=== PATIENT | female | born 1955 | race Caucasian/White ===

== ENCOUNTER 2021-12-20 11:29 | Outpatient (REF) | payer OTHER, SELFPAY ==
[2021-12-20 12:12] LABS: MANUAL DIFF FLAG NO
[2021-12-20 13:01] LABS: Basophils Percent Auto 0.2 % (0-2); Eosinophils Absolute Auto 0.1 X10*3/uL (0.0-0.4); Eosinophils Percent Auto 3.4 % (0-4); Hematocrit 39.8 % (37.0-47.0); Imm Gran Abs Auto 0.01 X10*3/uL (0.00-0.03); Imm Gran Pct Auto 0.2 % (0.0-0.4); Lymphocytes Absolute Auto 1.2 X10*3/uL (1.2-4.9); Lymphocytes Percent Auto 29.9 % (20-40); Mean Corpuscular HGB Conc 32.7 g/dl (31.0-35.0); Mean Corpuscular Hemoglobin 30.7 pg (27.0-33.0); Mean Corpuscular Volume 94.1 fL (80.0-98.0); Mean Platelet Volume 10.5 fL (9.4-12.3); Monocytes Absolute Auto 0.4 X10*3/uL (0.1-1.2); Monocytes Percent Auto 8.8 % (2-11); Neutrophils Absolute Auto 2.4 x10*3/uL (2.0-8.3); Neutrophils Percent Auto 57.5 % (45-73); Platelet Count 219 X10*3/uL (160-400); Red Blood Count 4.23 X10*6/uL (4.20-5.50); Red Cell Distribution Width 12.3 % (11.0-16.0); White Blood Count 4.1 X10*3/uL (4.8-10.8)
[2021-12-20 13:07] LABS: Appearance Urine CLEAR; Color Urine STRAW; Glucose Urine UA NEG (NEG); Leukocyte Esterase Urine NEG (NEG); Nitrite Urine NEG (NEG); PH 5.5 (5.0-8.0); UACC Culture Trigger NO; Urine Blood 3+ (NEG); Urine Ketones NEG (NEG); Urine Protein NEG (NEG-TRACE)
[2021-12-20 13:34] LABS: Anion Gap 12 (12-20); Blood Urea Nitrogen 15 mg/dL (9-16); Calcium 9.9 mg/dL (8.4-10.2); Carbon Dioxide 30 mmol/L (22-29); Chloride 102 mmol/L (96-108); Estimated Glomerular Filt Rate > 60; Glucose Random 112 mg/dL (60-115); Potassium 4.6 mmol/L (3.3-5.1); Sodium 139 mmol/L (135-145)
[2021-12-20 14:14] LABS: Squamous Epithelial Cell Urine TRACE /LPF; WBC Urine 0-2 /HPF (0-4)
== END 2021-12-20 11:30 | disposition home or self-care (01) ==
LOC: HO.LAB 11:29
PROVIDERS: PCP Internal Medicine; Visit Provider Internal Medicine
DX: R10.9 Unspecified abdominal pain (principal)
CPT/HCPCS: 36415; 80048; 81001; 81003; 85025

== ENCOUNTER 2021-12-21 00:01 | Emergency (ER) | payer OTHER, SELFPAY ==
--- NOTE | ~2021-12-21 | CT_ITS ---
EXAMINATION: CT ABDOMEN AND PELVIS WITHOUT CONTRAST CLINICAL INFORMATION: Right-sided flank pain COMPARISON: None TECHNIQUE: Multidetector volumetric imaging was performed from the superior aspect of the liver through the pubic symphysis. Sagittal and coronal reformatted images were obtained on the technologist's workstation. This CT examination was performed using dose optimization techniques as appropriate, variously including the following: *Automated exposure control *Adjustment of mA and/or kV according to patient size (this includes techniques or standardized protocols for targeted exams where dose is matched to indication/reason for exam; i.e. extremities or head) *Use of iterative reconstruction technique DLP: 630 mGy-cm FINDINGS: LUNG BASES: The visualized lung bases are unremarkable. LIVER, GALLBLADDER, AND BILIARY TREE: The liver is enlarged, measuring nearly 23 cm in length. No focal hepatic lesion or biliary ductal dilatation is present. The gallbladder is unremarkable with no evidence of radiopaque gallstones, gallbladder wall thickening, or obvious pericholecystic inflammatory changes. PANCREAS: Unremarkable. SPLEEN: Unremarkable. ADRENAL GLANDS: Unremarkable. KIDNEYS AND URETERS: There is moderate right hydroureteronephrosis with no obstructing ureteral calculus seen. Right-sided perinephric stranding is also present. There is a 7 mm calculus located in the right lower pole. The calculus measures approximately 567 Hounsfield units in density. When measured from the posterior mid axillary skin line, the distance from the skin to the calculus is approximately 13.6 cm. Additional punctate right lower pole calculi are noted. No left-sided hydronephrosis or obstructing calculus. There is a 6 mm calculus located in the mid left kidney. The calculus measures approximately 644 Hounsfield units in density. When measured from the posterior mid axillary skin line, the distance from the skin to the calculus is approximately 10.6 cm. Small cyst noted in the lower left kidney for which no follow-up is recommended. BLADDER: Partially distended. There is a 6 mm calcification dependently in the left aspect of the bladder which may represent a recently passed right ureteral calculus. GASTROINTESTINAL TRACT: No evidence of bowel obstruction. There is minimal colonic diverticulosis. No significant bowel wall thickening or pericolonic inflammation. The appendix is unremarkable. No free fluid or free air is seen. ABDOMINAL WALL: No significant hernia is appreciated. LYMPH NODES: Normal. VASCULAR: Unremarkable. PELVIC VISCERA: Unremarkable. OSSEOUS STRUCTURES: There is facet arthropathy in the lower lumbar spine. Disc space narrowing is noted at L4-L5. L3 vertebral body hemangioma. CT/CT abdomen pelvis wo con IMPRESSION: 1. Moderate right hydroureteronephrosis, which could be secondary to a 6 mm calculus which is now in the bladder. 2. Bilateral renal calculi as noted above. Fleischner guidelines were followed.
[2021-12-21 00:08] VITALS: BP 143/84; PULSE 70; RESP 16; TEMP 36.4; O2SAT 93; BMI 28.3
--- NOTE | 2021-12-21 00:38 | ED.ABDPAIN ---
HPI - Abdominal Pain General Chief Complaint: Abdominal Pain Stated Complaint: R flank pain & vomiting x6/past hr; kidney stone ? Time Seen by Provider: 12/21/21 00:38 Source: patient and family Mode of arrival: ambulatory Limitations: no limitations History of Present Illness HPI narrative: This is a 66-year-old female no significant medical history presenting to the emergency department with severe right-sided flank pain that started around dinner time on Friday which is approximately 4 days ago. Patient reports associated nausea and vomiting with this flank pain. It has been fluctuating in intensity over the past 4 days, today was the worst day, pain was severe and stabbing in nature. This flank pain is intermittent, patient tells me it feels like the pain moves, initially it was upper flank and now she can feel it in her lower flank wrapping around to the front of her abdomen. She also tells me that she noted yesterday that she had urinary frequency / urgency however no dysuria. Today she has vomited about 4-5 times, she vomited after eating and has vomited twice in our emergency department. Patient has no history of abdominal surgeries. No history of kidney stones. She denies gross hematuria, fevers, chills, chest pain, shortness of breath, weakness, dizziness, changes in bowel habits. MD elicited complaint: flank pain Pertinent past history: none Onset (ago): day(s) (4) Pain Consistency: intermittent Location: other (Right sided flank pain. ) Severity: severe Pain scale (0-10): 10 Quality: sharp Radiation: other (right lower abdomen. ) Exacerbating factors: nothing Relieving factors: nothing Associated symptoms: nausea and vomiting Related Data Previous Rx's Medication Instructions Recorded morphine 15 mg immediate release 15 mg PO Q8H PRN #14 tab 12/21/21 tablet ondansetron 4 mg disintegrating 4 mg PO Q8-12H PRN #30 tab 12/21/21 tablet Allergies Allergy/AdvReac Type Severity Reaction Status Date / Time No Known Allergies Allergy Verified 12/21/21 00:07 Review of Systems Review of Systems Constitutional : No Fever, No Chills ENT/Mouth : No sore throat Eyes: No Eye Pain, No Swelling, No Redness Cardiovascular : No Chest Pain, No SOB Respiratory : No Cough, No Sputum, No Wheezing Gastrointestinal : positive Nausea, positive Vomiting, No Diarrhea, positive abdominal pain Genitourinary : No Dysuria, positive urinary frequency, No Hematuria, positive Flank Pain, No hesitancy Musculoskeletal : No joint pain, No Myalgias Skin : No Skin Lesions, No rash Neuro : No Weakness, No Numbness, No Headache Psych : No Anxiety/Panic, No Depression All other systems reviewed and are negative Yes all other systems are reviewed and are negative Physical Exam Vital Signs: Vital Signs: Last Vital Signs Temp 97.6 F 12/21/21 00:08 Pulse 70 12/21/21 00:08 Resp 16 12/21/21 00:08 BP 143/84 H 12/21/21 00:08 Pulse Ox 93 12/21/21 00:08 BMI result Body Mass Index 28.3 VSS Appearance: Alert.? Oriented X3.? No acute distress.? Head: Normocephalic, atraumatic, no step-offs or deformities Eyes: Pupils equal, round and reactive to light.? ENT: Pharynx normal.? Neck: Normal inspection.? Neck supple.? CVS: Normal heart rate and rhythm.? Pulses normal.? Respiratory: No respiratory distress.? Breath sounds normal.? Abdomen: Soft and nontender.? Skin: Skin warm and dry.? Normal skin color.? Normal skin turgor.? Extremities: No lower extremity edema.? No calf ttp. 5/5 strength to bilateral upper and lower extremities Back: No midline tenderness, no C-spine tenderness, full range of motion, + CVA tenderness on right, negative one left. Neuro: Oriented X 3.? No motor deficit.? No sensory deficit. Course Reevaluation(s) Reevaluation #1: An isolated leukopenia is noted, also noted on laboratory studies from yesterday as well. Patient's magnesium is noted to be 1.5, no other acute electrolyte abnormalities. Lipase WNL. Time: 01:50 Reevaluation #2: CT scan shows moderate right hydroureteronephrosis there is a 6 mm stone noted in the bladder. And bilateral renal calculi noted. Patient has been given prednisone and flomax. Time: 02:06 Reevaluation #3: TT- Dr. Maya w/ CT results Discuss this case with Dr. Brown it appears as though patient already passed the stone. Will DC patient home on pain meds, zofran and outpatient follow up with Dr. Maya. Comfortable with plan. Answered patients questions comfortable with DC home. Patient reports improvement with toradol and zofran. Time: 02:13 MDM - Abdominal Pain MDM Narrative Medical decision making narrative: 004 66 yo f no significant pmhx presents with severe R sided flank pain w/ a/c N/V and lower abdominal pain X4 days, intermittent in nature. Fluctuating in intensity. Upon physical examination there is CVA tenderness to the right flank. Regular rate and rhythm. Lungs clear. Abdomen soft nontender nondistended. Neuro nonfocal. Vital signs are stable. Patient appears uncomfortable resting on the stretcher however, in no acute distress. Plan at this time is to obtain labs, urine and CT of the abdomen and pelvis without contrast. I will rule out obstructive uropathy. Patient will be given zofran for nausea, fluids and toradol for pain. Medical Records Attestation: I reviewed the patient's medical records. Lab Data Attestation: I reviewed the patient's lab results. Result diagrams: 12/21/21 00:47 12/21/21 00:47 Labs: Lab Results 12/21/21 12/21/21 12/21/21 Range/Units 00:47 00:47 00:47 WBC 4.7 L (4.8-10.8) X10*3/uL RBC 4.23 (4.20-5.50) X10*6/uL Hgb 13.1 (12.0-16.0) g/dl Hct 39.6 (37.0-47.0) % MCV 93.6 (80.0-98.0) fL MCH 31.0 (27.0-33.0) pg MCHC 33.1 (31.0-35.0) g/dl RDW 12.2 (11.0-16.0) % Plt Count 206 (160-400) X10*3/uL MPV 10.2 (9.4-12.3) fL Immature Gran % (Auto) 0.4 (0.0-0.4) % Neut % (Auto) 73.5 H (45-73) % Lymph % (Auto) 17.2 L (20-40) % [place] % (Auto) 6.6 (2-11) % Eos % (Auto) 1.9 (0-4) % Baso % (Auto) 0.4 (0-2) % Lymph # (Auto) 0.8 L (1.2-4.9) X10*3/uL [place] # (Auto) 0.3 (0.1-1.2) X10*3/uL Eos # (Auto) 0.1 (0.0-0.4) X10*3/uL Baso # (Auto) 0.0 (0.0-0.2) X10*3/uL Abs Immat Gran (auto) 0.02 (0.00-0.03) X10*3/uL Absolute Neuts (auto) 3.5 (2.0-8.3) x10*3/uL Absolute Nucleated RBC 0.000 (0.0-0.012) X10*3/uL Nucleated RBC % (auto) 0.0 (0.0-0.2) /100WBC Sodium 139 (135-145) mmol/L Potassium 3.9 (3.3-5.1) mmol/L Chloride 103 (96-108) mmol/L Carbon Dioxide 22 (22-29) mmol/L Anion Gap 18 (12-20) BUN 17 H (9-16) mg/dL Creatinine 0.96 (0.5-1.4) mg/dL Estim Creat Clear Calc 53.6 Estimated GFR 58 Random Glucose 151 H (60-115) mg/dL Calcium 9.5 (8.4-10.2) mg/dL Magnesium 1.5 L (1.6-2.6) mg/dL Total Bilirubin 0.3 (0.0-1.0) mg/dL AST 31 (5-31) U/L ALT 31 (0-31) U/L Alkaline Phosphatase 54 (39-117) U/L Total Protein 6.8 (6.5-8.0) g/dL Albumin 4.3 (3.5-5.0) g/dL Lipase 27 (8-78) U/L COVID-19 (HANG) Negative (Negative) COVID-19 Clin Com See Note Imaging Data CT scan - abdomen: Attestation: I personally reviewed and interpreted this imaging study as follows: Radiologist's impression: CT/CT abdomen pelvis wo con IMPRESSION: 1.? Moderate right hydroureteronephrosis, which could be secondary to a 6 mm calculus which is now in the bladder. 2.? Bilateral renal calculi as noted above. ? Fleischner guidelines were followed. ECG Data Attestation: I personally reviewed and interpreted this ECG as follows: ECG interpretation date: 12/21/21 ECG interpretation time: 01:49 Prior ECG tracings: available for review Interpretation: ventricular rate of 69, CT normal, QRS normal, QT / QTC normal. EKG shows normal sinus rhythm, no ST elevations or inversions concerning for ischemia. No significant changes when compared to EKG from 09/23/2018. Critical Care Time Critical Care Time Critical Care Time: No Discharge Plan Discharge Clinical Impression: Bilateral nephrolithiasis, Right flank pain, Nausea & vomiting Patient Disposition: Home, Self-Care Instructions: Kidney Stones (ED), Acute Nausea and Vomiting (ED) Additional Instructions: Take your medications as prescribed. If you were prescribed antibiotics today, it is important that you take your medication to their entirety, do not skip any doses, do not finish them early. Follow-up with your primary care provider this week. Call Urology tomorrow to schedule an outpatient appointment. Return to the emergency department with new or worsening symptoms. Such as fevers, chills, nausea, vomiting, abdominal pain, worsening flank pain, changes in urination, changes in bowel habits, chest pain, shortness of breath. In case of emergency call 911 A narcotic, morphine has been sent to your pharmacy take this for severe pain. It can cause constipation so you may take an [id number] stool softener. If pain is mild/ moderate you can alternate ibuprofen every 6 hours, Tylenol every 4 for pain/discomfort I attest that I have reviewed patients [employer], and at the time prescribing the patient a controlled substance is appropriate based off of patients diagnosis and treatment plan. Feel better! Prescriptions: New morphine 15 mg tablet 15 mg PO Q8H PRN (Reason: pain) Qty: 14 0RF Rx Instructions: Patient can partially filled prescription upon request ondansetron 4 mg tablet,disintegrating 4 mg PO Q8-12H PRN (Reason: nausea and vomiting) Qty: 30 0RF Referrals: Marlon Maya MD [Physician] - 1 day Physician,None [Primary Care Provider] - 2 days Stand Alone Forms: Work/School Release [facility] Past Medical History Attestation statement: The following information was validated with the patient. Source: old records reviewed and nursing notes reviewed Social History Social History Advance Directives: No
--- NOTE | 2021-12-21 00:39 | ECG_ITS ---
Test Reason : ABD PAIN Blood Pressure : / mmHG Vent. Rate : 069 BPM Atrial Rate : 069 BPM P-R Int : 164 ms QRS Dur : 088 ms QT Int : 424 ms P-R-T Axes : 035 -26 103 degrees QTc Int : 454 ms Normal sinus rhythm Nonspecific T wave abnormality Abnormal ECG When compared with ECG of 23-SEP-2018 17:02, QT has lengthened Referred By: Joel Rodriguez Electronically Signed By:Arun Wing
[2021-12-21 01:03] LABS: MANUAL DIFF FLAG NO
[2021-12-21] MEDS: ondansetron HCL 4 MG/2 ML VIAL IVPUSH (01:04)
[2021-12-21] MEDS: 0.9 % Sodium Chloride 1,000 ML 999 ML IV (01:04)
[2021-12-21 01:05] LABS: Basophils Percent Auto 0.4 % (0-2); Eosinophils Absolute Auto 0.1 X10*3/uL (0.0-0.4); Eosinophils Percent Auto 1.9 % (0-4); Hematocrit 39.6 % (37.0-47.0); Hemoglobin 13.1 g/dl (12.0-16.0); Imm Gran Abs Auto 0.02 X10*3/uL (0.00-0.03); Imm Gran Pct Auto 0.4 % (0.0-0.4); Lymphocytes Absolute Auto 0.8 X10*3/uL (1.2-4.9); Lymphocytes Percent Auto 17.2 % (20-40); Mean Corpuscular HGB Conc 33.1 g/dl (31.0-35.0); Mean Corpuscular Volume 93.6 fL (80.0-98.0); Mean Platelet Volume 10.2 fL (9.4-12.3); Monocytes Absolute Auto 0.3 X10*3/uL (0.1-1.2); Monocytes Percent Auto 6.6 % (2-11); Neutrophils Absolute Auto 3.5 x10*3/uL (2.0-8.3); Neutrophils Percent Auto 73.5 % (45-73); Platelet Count 206 X10*3/uL (160-400); Red Blood Count 4.23 X10*6/uL (4.20-5.50); Red Cell Distribution Width 12.2 % (11.0-16.0); White Blood Count 4.7 X10*3/uL (4.8-10.8)
[2021-12-21 01:19] LABS: COVID-19 Test Negative (Negative); IDNOW Serial# 9DD0AD1C
[2021-12-21] MEDS: Ketorolac Tromethamine 15 MG/ML VIAL 30 MG IVPUSH (01:34)
[2021-12-21] MEDS: predniSONE 20 MG TABLET PO (01:37)
[2021-12-21] MEDS: Tamsulosin HCL 0.4 MG CAPSULE PO (01:37)
[2021-12-21 01:38] LABS: Alanine Aminotransferase 31 U/L (0-31); Albumin Level 4.3 g/dL (3.5-5.0); Alkaline Phosphatase 54 U/L (39-117); Anion Gap 18 (12-20); Aspartate Amino Transferase 31 U/L (5-31); Bilirubin Total 0.3 mg/dL (0.0-1.0); Blood Urea Nitrogen 17 mg/dL (9-16); Calcium 9.5 mg/dL (8.4-10.2); Carbon Dioxide 22 mmol/L (22-29); Chloride 103 mmol/L (96-108); Creatinine Clr Calc Pharmacy 53.6; Estimated Glomerular Filt Rate 58; Glucose Random 151 mg/dL (60-115); Lipase 27 U/L (8-78); Magnesium 1.5 mg/dL (1.6-2.6); Potassium 3.9 mmol/L (3.3-5.1); Sodium 139 mmol/L (135-145); Total Protein 6.8 g/dL (6.5-8.0)
== END 2021-12-21 02:50 | disposition home or self-care (01) ==
PROVIDERS: Physician Assistant; Emergency Provider Emergency Medicine
DX: N20.0 Calculus of kidney (principal); R10.9 Unspecified abdominal pain; R11.2 Nausea with vomiting, unspecified; Z20.822 Contact with and (suspected) exposure to COVID-19
CPT/HCPCS: 36415; 74176; 80053; 83690; 83735; 85025; 87635; 93005; 96361; 96374; 96375; 99284; J1885; J2405

== ENCOUNTER 2022-01-15 12:26 | Inpatient (IN) | payer OTHER, SELFPAY ==
--- NOTE | ~2022-01-15 | FL_ITS ---
EXAMINATION: XR FL WITH IMAGES CLINICAL INFORMATION: Right renal stone. COMPARISON: CT abdomen 01/15/2022. TECHNIQUE: Fluoroscopy performed by Dr. Marlon Maya. Fluoroscopy Time: 46.5 seconds. DAP: 12.6 mGycm2. Images: 4. FINDINGS: Imaging demonstrates sequential placement of an internally dwelling double-J stent on the right. Only the proximal end in the renal pelvis and proximal ureter is imaged. FL/FL guidance in OR IMPRESSION: Fluoroscopy and spot films provided during right internally dwelling ureteral stent placement. Please see Dr. Maya's full operative note for details.
--- NOTE | ~2022-01-15 | CT_ITS ---
EXAMINATION: CT ABDOMEN AND PELVIS WITHOUT CONTRAST CLINICAL INFORMATION: Right flank pain with history of stones COMPARISON: CT abdomen pelvis 12/21/2021 TECHNIQUE: Multidetector volumetric imaging was performed from the superior aspect of the liver through the pubic symphysis. Sagittal and coronal reformatted images were obtained on the technologist's workstation. This CT examination was performed using dose optimization techniques as appropriate, variously including the following: *Automated exposure control *Adjustment of mA and/or kV according to patient size (this includes techniques or standardized protocols for targeted exams where dose is matched to indication/reason for exam; i.e. extremities or head) *Use of iterative reconstruction technique DLP: 594 mGy-cm FINDINGS: LUNG BASES: The visualized lung bases are unremarkable. LIVER, GALLBLADDER, AND BILIARY TREE: The liver is enlarged measuring 22.5 cm in greatest length but attenuation is normal, greater than the spleen. No focal hepatic lesion or biliary ductal dilatation is present. The gallbladder is unremarkable with no evidence of radiopaque gallstones, gallbladder wall thickening, or obvious pericholecystic inflammatory changes. PANCREAS: Unremarkable. SPLEEN: Unremarkable. ADRENAL GLANDS: Unremarkable. KIDNEYS AND URETERS: Right: Large stone that had been in the lower pole of the right kidney that had measured 7 mm has migrated into the distal third of the of the right ureter now causing marked ureterectasis on hydronephrosis. There is evidence of forniceal rupture with perinephric stranding. Some tiny punctate intrarenal nonobstructing calculi remain in the right kidney. No renal masses are seen. Left: A 6 x 8 mm calculus is present in the midpole of the left kidney without obstruction. No other significant calculi are seen. A benign Bosniak class I exophytic lower pole simple cyst is present. No solid renal masses are seen. The left ureter is nondilated. BLADDER: The previously seen stone that was in the bladder is no longer present. GASTROINTESTINAL TRACT: The small and large bowel are unremarkable. The appendix is unremarkable, but contains a appendicolith. ABDOMINAL WALL: No significant hernia is appreciated. LYMPH NODES: Normal. VASCULAR: Unremarkable. PELVIC VISCERA: Unremarkable. 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 Degenerative changes are present in the spine most marked at L4-L5. A hemangioma is noted in the vertebral body of L3. CT/CT abdomen pelvis wo con IMPRESSION: 1. A 7 mm calculus that had been present in the right lower pole has migrated into the distal one third of the right ureter causing marked hydronephrosis. 2. Redemonstration of 8 mm nonobstructing left renal calculus. 3. Other incidental findings described above including hepatomegaly. Fleischner guidelines were followed.
[2022-01-15 13:10] VITALS: BP 141/71; PULSE 70; RESP 18; TEMP 37.1; O2SAT 98; BMI 28.3
[2022-01-15 14:18] LABS: MANUAL DIFF FLAG NO
[2022-01-15 14:19] LABS: Basophils Percent Auto 0.1 % (0-2); Eosinophils Percent Auto 0.2 % (0-4); Hematocrit 43.4 % (37.0-47.0); Hemoglobin 14.6 g/dl (12.0-16.0); Imm Gran Abs Auto 0.02 X10*3/uL (0.00-0.03); Imm Gran Pct Auto 0.2 % (0.0-0.4); Lymphocytes Absolute Auto 0.7 X10*3/uL (1.2-4.9); Lymphocytes Percent Auto 7.4 % (20-40); Mean Corpuscular HGB Conc 33.6 g/dl (31.0-35.0); Mean Corpuscular Hemoglobin 31.1 pg (27.0-33.0); Mean Corpuscular Volume 92.5 fL (80.0-98.0); Mean Platelet Volume 10.5 fL (9.4-12.3); Monocytes Absolute Auto 0.3 X10*3/uL (0.1-1.2); Monocytes Percent Auto 3.9 % (2-11); Neutrophils Absolute Auto 7.7 x10*3/uL (2.0-8.3); Neutrophils Percent Auto 88.2 % (45-73); Platelet Count 241 X10*3/uL (160-400); Red Blood Count 4.69 X10*6/uL (4.20-5.50); Red Cell Distribution Width 12.2 % (11.0-16.0); White Blood Count 8.8 X10*3/uL (4.8-10.8)
[2022-01-15 14:42] LABS: Anion Gap 16 (12-20); Blood Urea Nitrogen 20 mg/dL (9-16); Calcium 9.9 mg/dL (8.4-10.2); Carbon Dioxide 24 mmol/L (22-29); Chloride 103 mmol/L (96-108); Creatinine Clr Calc Pharmacy 58.4; Estimated Glomerular Filt Rate > 60; Glucose Random 154 mg/dL (60-115); Potassium 4.6 mmol/L (3.3-5.1); Sodium 138 mmol/L (135-145)
--- NOTE | 2022-01-15 17:26 | ED.FEMALEGU ---
HPI - Female Genitourinary General Chief complaint: Urogenital-Female Stated complaint: Kidney stone Time Seen by Provider: 01/15/22 16:37 Source: patient Mode of arrival: ambulatory Limitations: no limitations History of Present Illness HPI Narrative: 66-year-old female presents with right-sided flank and abdominal pain that started last night. States she is unable to eat and drink because of nausea and abdominal pain. She has a history of kidney stones, and states that this feels similar to prior presentation. Does not describe any fevers or chills, diaphoresis, or any other concerning symptoms. MD elicited complaint: flank pain Pertinent past history: other (Kidney stones) Onset (ago): day(s) (2) Location of symptoms: RLQ and flank Severity: moderate Female Urogenital Radiation: Non-Radiating Severity scale (1-10): 6 Quality of pain: stabbing and aching Consistency: intermittent and progressively worsening Vaginal discharge: none Urinary symptoms: Urgency Exacerbating factors: movement Relieving factors: none Associated symptoms: abdominal pain, loss of appetite and nausea Treatment prior to arrival: none Related Data Home Medications Medication Instructions Recorded Confirmed fluoxetine 20 mg capsule 20 mg PO DAILY 01/08/22 01/15/22 omeprazole magnesium 20 mg 20 mg PO DAILY 01/08/22 01/15/22 tablet,delayed release (Prilosec OTC) pravastatin 40 mg tablet 40 mg PO DAILY 01/08/22 01/15/22 solifenacin 10 mg tablet 10 mg PO DAILY 01/08/22 01/15/22 cetirizine 10 mg tablet (Zyrtec) 10 mg PO DAILY 01/15/22 01/15/22 cholecalciferol (vitamin D3) 25 25 mcg PO DAILY 01/15/22 01/15/22 mcg (1,000 unit) tablet Allergies Allergy/AdvReac Type Severity Reaction Status Date / Time No Known Allergies Allergy Verified 01/08/22 12:59 Review of Systems Review of Systems: Constitutional: No Fever, No Chills ENT/Mouth: No sore throat Eyes: No Eye Pain, No Swelling, No Redness Cardiovascular: No Chest Pain, No SOB Respiratory: No Cough, No Sputum, No Wheezing Gastrointestinal: positive Nausea, positive Vomiting, No Diarrhea, positive abdominal pain Genitourinary: No Dysuria, no urinary frequency, no Hematuria, positive Flank Pain, no hesitancy Musculoskeletal: No joint pain, No Myalgias Skin: No Skin Lesions, No rash Neuro: No Weakness, No Numbness, No Headache Psych: No Anxiety/Panic, No Depression Heme/Lymph: No Bruising, No Lymphadenopathy Endocrine: No Polyuria, No Polydipsia Yes all other systems are reviewed and are negative [facility] Past Medical History Attestation statement: The following information was validated with the patient. Source: old records reviewed Medical History Renal calculi Social History Social History Alcohol intake: never Patient Tobacco Use Status: Never used Tobacco Use of substances other than those prescribed or required for medical reasons: No Advance Directives: No Advance Directives Information Provided: Yes Physical Exam Vital Signs: Vital Signs: Last Vital Signs Temp 99.0 F 01/15/22 21:13 Pulse 71 01/15/22 21:13 Resp 12 01/15/22 21:13 BP 122/54 L 01/15/22 21:13 Pulse Ox 93 01/15/22 21:13 BMI result Body Mass Index 28.3 Appearance: Alert. Oriented X3. Moderate distress. Eyes: Pupils equal, round and reactive to light. EOMI. Sclera nonicteric. ENT: Pharynx normal. Dry mucous membranes. Neck: Normal inspection. Neck supple. CVS: Normal heart rate and rhythm. Pulses normal. Respiratory: No respiratory distress. Breath sounds normal. Abdomen: Soft and right lower quadrant tenderness, right-sided CVA tenderness. Skin: Skin warm and dry. Normal skin color. Normal skin turgor. Extremities: No lower extremity edema. Gait well-balanced well coordinated. Neuro: No motor deficit. No sensory deficit. Cranial nerves 2-12 intact. Course Course Course Narrative: 66-year-old female presents for right-sided flank and abdominal pain consistent with prior presentations of kidney stones. Patient is afebrile and appears nontoxic. Does appear uncomfortable, unable to sit still secondary to flank pain. Labs drawn while she was in the emergency department waiting room, BUN elevated at 20, which is consistent with patient's inability to eat or drink because of nausea associated with the abdominal pain. Will resuscitate with 1 L of fluid, give Toradol and Zofran. CT scan of abdomen pelvis is pending. 18:22 urinalysis indicative of UTI. Will give ceftriaxone 1 g IV. Lactic and cultures ordered at this time. WBC 8.8. Afebrile. No indication of sepsis at this time. 19:53 CT scan indicates forniceal rupture with perinephric stranding with 7 mm obstructing stone to the right side, in a 6 x 8 mm calculus in the left midpole of the kidney without obstruction. Discussion with Dr. Maya, plan of care is for NPO and admission to Medicine with plan for procedure in the morning. Lactic acid is 0.9. Patient does not meet sepsis requirements. 20:10 discussion with hospitalist, plan of care is to admit for pyelonephritis, hydronephrosis, ureteral rupture and UTI. Patient uncomfortable at this time, order for Reglan, Benadryl, and morphine. 2 L of IV fluids ordered. Consultations Consultation #1: Francesco Time: 19:53 Consultation #2: Mgaalie Time: 20:10 MDM - Female Genitourinary MDM Narrative Medical decision making narrative: Kidney stone, pyelo, hydronephrosis, appendicitis Differential Diagnosis Differential diagnosis: Likely urinary tract infection Medical Records Attestation: I reviewed the patient's medical records. Lab Data Attestation: I reviewed the patient's lab results. Result diagrams: 01/15/22 14:08 01/15/22 14:08 Labs: Lab Results 01/15/22 01/15/22 01/15/22 Range/Units 14:08 14:08 17:34 WBC 8.8 (4.8-10.8) X10*3/uL RBC 4.69 (4.20-5.50) X10*6/uL Hgb 14.6 (12.0-16.0) g/dl Hct 43.4 (37.0-47.0) % MCV 92.5 (80.0-98.0) fL MCH 31.1 (27.0-33.0) pg MCHC 33.6 (31.0-35.0) g/dl RDW 12.2 (11.0-16.0) % Plt Count 241 (160-400) X10*3/uL MPV 10.5 (9.4-12.3) fL Immature Gran % (Auto) 0.2 (0.0-0.4) % Neut % (Auto) 88.2 H (45-73) % Lymph % (Auto) 7.4 L (20-40) % [place] % (Auto) 3.9 (2-11) % Eos % (Auto) 0.2 (0-4) % Baso % (Auto) 0.1 (0-2) % Lymph # (Auto) 0.7 L (1.2-4.9) X10*3/uL [place] # (Auto) 0.3 (0.1-1.2) X10*3/uL Eos # (Auto) 0.0 (0.0-0.4) X10*3/uL Baso # (Auto) 0.0 (0.0-0.2) X10*3/uL Abs Immat Gran (auto) 0.02 (0.00-0.03) X10*3/uL Absolute Neuts (auto) 7.7 (2.0-8.3) x10*3/uL Absolute Nucleated RBC 0.000 (0.0-0.012) X10*3/uL Nucleated RBC % (auto) 0.0 (0.0-0.2) /100WBC Sodium 138 (135-145) mmol/L Potassium 4.6 (3.3-5.1) mmol/L Chloride 103 (96-108) mmol/L Carbon Dioxide 24 (22-29) mmol/L Anion Gap 16 (12-20) BUN 20 H (9-16) mg/dL Creatinine 0.88 (0.5-1.4) mg/dL Estim Creat Clear Calc 58.4 Estimated GFR > 60 Random Glucose 154 H (60-115) mg/dL Lactic Acid (0.5-2.0) mmol/L Calcium 9.9 (8.4-10.2) mg/dL Total Bilirubin 0.6 (0.0-1.0) mg/dL Direct Bilirubin 0.2 (0.0-0.5) mg/dL AST 31 (5-31) U/L ALT 27 (0-31) U/L Alkaline Phosphatase 57 (39-117) U/L Total Protein 7.3 (6.5-8.0) g/dL Albumin 4.5 (3.5-5.0) g/dL Lipase 17 (8-78) U/L Urine Color BROWN A Urine Appearance HAZY Urine pH 5.5 (5.0-8.0) Ur Specific [place] >= 1.030 H (1.005-1.025) Urine Protein 1+ H (NEG-TRACE) MG/DL Urine Glucose (UA) NEG (NEG) MG/DL Urine Ketones 15 (NEG) MG/DL Urine Blood 3+ H (NEG) Urine Nitrite NEG (NEG) Ur Leukocyte Esterase 1+ H (NEG) Urine RBC 76-150 H (0) /HPF Urine WBC 5-9 H (0-4) /HPF Ur Squamous Epith Cells 1+ /LPF Other Crystals 4+ /LPF Urine Bacteria TRACE /LPF 01/15/22 Range/Units 18:55 WBC (4.8-10.8) X10*3/uL RBC (4.20-5.50) X10*6/uL Hgb (12.0-16.0) g/dl Hct (37.0-47.0) % MCV (80.0-98.0) fL MCH (27.0-33.0) pg MCHC (31.0-35.0) g/dl RDW (11.0-16.0) % Plt Count (160-400) X10*3/uL MPV (9.4-12.3) fL Immature Gran % (Auto) (0.0-0.4) % Neut % (Auto) (45-73) % Lymph % (Auto) (20-40) % [place] % (Auto) (2-11) % Eos % (Auto) (0-4) % Baso % (Auto) (0-2) % Lymph # (Auto) (1.2-4.9) X10*3/uL [place] # (Auto) (0.1-1.2) X10*3/uL Eos # (Auto) (0.0-0.4) X10*3/uL Baso # (Auto) (0.0-0.2) X10*3/uL Abs Immat Gran (auto) (0.00-0.03) X10*3/uL Absolute Neuts (auto) (2.0-8.3) x10*3/uL Absolute Nucleated RBC (0.0-0.012) X10*3/uL Nucleated RBC % (auto) (0.0-0.2) /100WBC Sodium (135-145) mmol/L Potassium (3.3-5.1) mmol/L Chloride (96-108) mmol/L Carbon Dioxide (22-29) mmol/L Anion Gap (12-20) BUN (9-16) mg/dL Creatinine (0.5-1.4) mg/dL Estim Creat Clear Calc Estimated GFR Random Glucose (60-115) mg/dL Lactic Acid 0.9 (0.5-2.0) mmol/L Calcium (8.4-10.2) mg/dL Total Bilirubin (0.0-1.0) mg/dL Direct Bilirubin (0.0-0.5) mg/dL AST (5-31) U/L ALT (0-31) U/L Alkaline Phosphatase (39-117) U/L Total Protein (6.5-8.0) g/dL Albumin (3.5-5.0) g/dL Lipase (8-78) U/L Urine Color Urine Appearance Urine pH (5.0-8.0) Ur Specific [place] (1.005-1.025) Urine Protein (NEG-TRACE) MG/DL Urine Glucose (UA) (NEG) MG/DL Urine Ketones (NEG) MG/DL Urine Blood (NEG) Urine Nitrite (NEG) Ur Leukocyte Esterase (NEG) Urine RBC (0) /HPF Urine WBC (0-4) /HPF Ur Squamous Epith Cells /LPF Other Crystals /LPF Urine Bacteria /LPF Imaging Data CT scan - abdomen: Attestation: I personally reviewed and interpreted this imaging study as follows: Radiologist's impression: FINDINGS: LUNG BASES: The visualized lung bases are unremarkable.? LIVER, GALLBLADDER, AND BILIARY TREE: The liver is enlarged measuring 22.5 cm in greatest length but attenuation is normal, greater than the spleen. No focal hepatic lesion or biliary ductal dilatation is present. The gallbladder is unremarkable with no evidence of radiopaque gallstones, gallbladder wall thickening, or obvious pericholecystic inflammatory changes.? PANCREAS: Unremarkable.? SPLEEN: Unremarkable.? ADRENAL GLANDS: Unremarkable.? KIDNEYS AND URETERS: Right: Large stone that had been in the lower pole of the right kidney that had measured 7 mm has migrated into the distal third of the of the right ureter now causing marked ureterectasis on hydronephrosis. There is evidence of forniceal rupture with perinephric stranding. Some tiny punctate intrarenal nonobstructing calculi remain in the right kidney. No renal masses are seen. Left: A 6 x 8 mm calculus is present in the midpole of the left kidney without obstruction. No other significant calculi are seen. A benign Bosniak class I exophytic lower pole simple cyst is present. No solid renal masses are seen. The left ureter is nondilated. BLADDER: The previously seen stone that was in the bladder is no longer present.? GASTROINTESTINAL TRACT: The small and large bowel are unremarkable. The appendix is unremarkable, but contains a appendicolith.? ABDOMINAL WALL: No significant hernia is appreciated.? LYMPH NODES: Normal. VASCULAR: Unremarkable. PELVIC VISCERA: Unremarkable.? 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 Degenerative changes are present in the spine most marked at L4-L5. A hemangioma is noted in the vertebral body of L3. CT/CT abdomen pelvis wo con IMPRESSION: 1.? A 7 mm calculus that had been present in the right lower pole has migrated into the distal one third of the right ureter causing marked hydronephrosis. 2.? Redemonstration of 8 mm nonobstructing left renal calculus. 3.? Other incidental findings described above including hepatomegaly.? ? Fleischner guidelines were followed. Critical Care Time Critical Care Time Critical Care Time: Yes Total Critical Care Time: 45 Attestation: I have personally provided critical care time exclusive of time spent on separately billable procedures. Time includes review of laboratory data, radiology results, discussion with consultants, and monitoring for potential decompensation. Interventions were performed as documented. Discharge Plan Discharge Clinical Impression: Hydronephrosis concurrent with and due to calculi of kidney and ureter, Acute pyelonephritis, Rupture of ureter Patient Disposition: Admitted As Inpatient
[2022-01-15 17:35] VITALS: BP 147/70; PULSE 72; RESP 15; TEMP 37.8; O2SAT 93
[2022-01-15 17:50] LABS: Appearance Urine HAZY; Color Urine BROWN; Glucose Urine UA NEG (NEG); Leukocyte Esterase Urine 1+ (NEG); Nitrite Urine NEG (NEG); PH 5.5 (5.0-8.0); Specific Gravity - Urine >= 1.030 (1.005-1.025); UACC Culture Trigger YES; Urine Blood 3+ (NEG); Urine Ketones 15 MG/DL (NEG); Urine Protein 1+ MG/DL (NEG-TRACE)
[2022-01-15 18:01] LABS: Other Crystals Urine 4+ /LPF
[2022-01-15 18:02] LABS: Bacteria Urine TRACE /LPF; Squamous Epithelial Cell Urine 1+ /LPF
[2022-01-15] MEDS: 0.9 % Sodium Chloride 1,000 ML 999 ML IVCONT ×2 (18:08→21:34)
[2022-01-15] MEDS: Ketorolac Tromethamine 30 MG/ML VIAL IVPUSH (18:10)
[2022-01-15] MEDS: ondansetron HCL 4 MG/2 ML VIAL IVPUSH (18:10)
[2022-01-15 18:56] VITALS: BP 120/52; PULSE 73; RESP 16; TEMP 37.6; O2SAT 94
[2022-01-15 19:03] LABS: Alanine Aminotransferase 27 U/L (0-31); Albumin Level 4.5 g/dL (3.5-5.0); Alkaline Phosphatase 57 U/L (39-117); Aspartate Amino Transferase 31 U/L (5-31); Bilirubin Direct 0.2 mg/dL (0.0-0.5); Bilirubin Total 0.6 mg/dL (0.0-1.0); Lipase 17 U/L (8-78); Total Protein 7.3 g/dL (6.5-8.0)
[2022-01-15 19:10] LABS: Lactic Acid 0.9 mmol/L (0.5-2.0)
[2022-01-15] MEDS: cefTRIAXone sodium 1 GM in 0.9 % Sodium Chloride 50 ML IV (19:49)
[2022-01-15 21:13] VITALS: BP 122/54; PULSE 71; RESP 12; TEMP 37.2; O2SAT 93
--- NOTE | 2022-01-15 21:44 | P.HPHOSP_ITS ---
History of Present Illness Date of Service: 01/15/22 Chief Complaint: flank pain this is a 66-year-old female with past medical history of renal calculi who presents to the hospital with complaints of right flank abdominal pain. Symptoms started the day prior to presentation, pain is severe, radiating to the groin and lower abdomen, patient denies any urinary symptoms including no dysuria, urgency or frequency. Patient reports history of kidney stones with most recent a couple of weeks ago, she follows with Urology. Urology give her some pain medication but patient reports that she has so much nausea and vomiting that she could not keep anything down. She took Aleve with some improvement of her pain but has now remain constant with no relief.he has no chest pain, no shortness of breath, no fever but has been having chills overnight. She denies any headache, no change in vision, no lower extremity edema. On arrival to the ED patient is hemodynamically stable has significant abnormal vitals labs are significant for WBC count of 8.8, labs otherwise unremarkable, UA is positive for leukocyte Estrace, WBC. Abdomen pelvic CT shows a 7 mm calculus that had been present in the right lower pole which has migrated into the distal 1/3 of the right ureter causing marked hydro nephrosis. 8 mm nonobstructing left renal calculus. Urology is consulted and patient will undergo intervention in a.m. Review of Systems Review of Systems: Yes all other systems are reviewed and are negative [facility] Medical History (Updated 01/16/22 @ 06:45 by Brittany Mejias MD) GERD (gastroesophageal reflux disease) Renal calculi Family History (Updated 01/16/22 @ 06:43 by Brittany Mejias MD) Other No family history of coronary artery disease Surgical History (Updated 01/16/22 @ 06:43 by Brittany Mejias MD) No pertinent past surgical history Social History Alcohol intake: never Patient Tobacco Use Status: Never used Tobacco Use of substances other than those prescribed or required for medical reasons: No Advance Directives: No Advance Directives Information Provided: Yes Meds Allergies Allergy/AdvReac Type Severity Reaction Status Date / Time No Known Allergies Allergy Verified 01/08/22 12:59 Home Medications Medication Instructions Recorded Confirmed Last Taken Type fluoxetine 20 mg capsule 20 mg PO DAILY 01/08/22 01/15/22 Unknown History omeprazole magnesium 20 mg 20 mg PO DAILY 01/08/22 01/15/22 Unknown History tablet,delayed release (Prilosec OTC) pravastatin 40 mg tablet 40 mg PO DAILY 01/08/22 01/15/22 Unknown History solifenacin 10 mg tablet 10 mg PO DAILY 01/08/22 01/15/22 Unknown History cetirizine 10 mg tablet (Zyrtec) 10 mg PO DAILY 01/15/22 01/15/22 Unknown History cholecalciferol (vitamin D3) 25 25 mcg PO DAILY 01/15/22 01/15/22 Unknown History mcg (1,000 unit) tablet Physical Exam Vital Signs and Narrative: Vital Signs: Last Vital Signs Temp 99.0 F 01/15/22 21:13 Pulse 71 01/15/22 21:13 Resp 12 01/15/22 21:13 BP 122/54 L 01/15/22 21:13 Pulse Ox 93 01/15/22 21:13 BMI result Body Mass Index 28.3 Const: General: cooperative and no acute distress Orientation/consciousness: patient oriented x3 Eyes: General: appearance normal, both eyes and all related structures Pupils: Equal, round and reactive pupils present Resp: Effort & Inspection: normal respiratory effort Auscultation: clear to auscultation bilaterally Cardio: Rate: regular rate Rhythm: regular rhythm GI: Palpation (GI): Soft to palpation Auscultation: normal bowel sounds : Other: suprapubic tenderness, CVAtenderness on the right Skin: General skin exam: no rashes or lesions noted Neuro: General: patient oriented x3 Cranial nerves: Yes Equal, round and reactive pupils present Cognition (Neuro): normal cognition Extrem: General: Yes normal to inspection and Yes no pedal edema Results Labs CBC and Chem 7: 01/16/22 04:32 01/16/22 04:32 Labs: Laboratory Results - last 24 hr 01/15/22 01/15/22 01/15/22 14:08 14:08 17:34 MCV 92.5 MCH 31.1 MCHC 33.6 RDW 12.2 Plt Count 241 MPV 10.5 Immature Gran % (Auto) 0.2 Neut % (Auto) 88.2 H Lymph % (Auto) 7.4 L [place] % (Auto) 3.9 Eos % (Auto) 0.2 Baso % (Auto) 0.1 Lymph # (Auto) 0.7 L [place] # (Auto) 0.3 Eos # (Auto) 0.0 Baso # (Auto) 0.0 Abs Immat Gran (auto) 0.02 Absolute Neuts (auto) 7.7 Absolute Nucleated RBC 0.000 Nucleated RBC % (auto) 0.0 Anion Gap 16 Estim Creat Clear Calc 58.4 Estimated GFR > 60 Random Glucose 154 H Lactic Acid Calcium 9.9 Total Bilirubin 0.6 Direct Bilirubin 0.2 AST 31 ALT 27 Alkaline Phosphatase 57 Total Protein 7.3 Albumin 4.5 Lipase 17 Urine Color BROWN A Urine Appearance HAZY Urine pH 5.5 Ur Specific [place] >= 1.030 H Urine Protein 1+ H Urine Glucose (UA) NEG Urine Ketones 15 Urine Blood 3+ H Urine Nitrite NEG Ur Leukocyte Esterase 1+ H Urine RBC 76-150 H Urine WBC 5-9 H Ur Squamous Epith Cells 1+ Other Crystals 4+ Urine Bacteria TRACE 01/15/22 18:55 MCV MCH MCHC RDW Plt Count MPV Immature Gran % (Auto) Neut % (Auto) Lymph % (Auto) [place] % (Auto) Eos % (Auto) Baso % (Auto) Lymph # (Auto) [place] # (Auto) Eos # (Auto) Baso # (Auto) Abs Immat Gran (auto) Absolute Neuts (auto) Absolute Nucleated RBC Nucleated RBC % (auto) Anion Gap Estim Creat Clear Calc Estimated GFR Random Glucose Lactic Acid 0.9 Calcium Total Bilirubin Direct Bilirubin AST ALT Alkaline Phosphatase Total Protein Albumin Lipase Urine Color Urine Appearance Urine pH Ur Specific [place] Urine Protein Urine Glucose (UA) Urine Ketones Urine Blood Urine Nitrite Ur Leukocyte Esterase Urine RBC Urine WBC Ur Squamous Epith Cells Other Crystals Urine Bacteria Imaging Radiologist's Impressions: Impressions Abdomen/Pelvis CT 01/15/22 17:00 IMPRESSION: 1. A 7 mm calculus that had been present in the right lower pole has migrated into the distal one third of the right ureter causing marked hydronephrosis. 2. Redemonstration of 8 mm nonobstructing left renal calculus. 3. Other incidental findings described above including hepatomegaly. Fleischner guidelines were followed. Assessment and Plan (1) Hydronephrosis concurrent with and due to calculi of kidney and ureter: Status: Acute (2) Urinary tract obstruction by kidney stone: Status: Acute (3) UTI (urinary tract infection): Status: Acute Plan 66-year-old female with past medical history of renal calculi, GERD who presents to the hospital with complaints of right flank pain found to have obstructing renal calculi # obstructing renal calculi with hydronephrosis - will treat with IV fluids, pain medications, - urology consulted with plan for surgical intervention in a.m - NPO after midnight # UTI - will treat with IV antibiotics - follow cultures - management of obstructing stone # history of GERD - continue PPI # depression - continue Prozac DVT prophylaxis: SCDs Quality Stroke Does the patient have a stroke diagnosis?: No VTE Prior VTE?: No VTE Risk Level:: Medical - moderate - high VTE Device Contraindication: N/A - Device Ordered VTE Drug Contraindication: Treatment Not Indicated
--- NOTE | 2022-01-15 23:02 | PC.NURSE ---
PT SLEEPING IN NAD. RESPIRATIONS EASY, N/L. SKIN W/D. WILL CONTINUE TO MONITOR PT.
[2022-01-16] VITALS (16 sets, daily range): BP systolic 108–140; BP diastolic 48–66; PULSE 64–79; RESP 15–20; TEMP 36–37.2; O2SAT 91–98
[2022-01-16] MEDS: Morphine Sulfate 4 MG/ML CARTRIDGE IVPUSH ×3 (00:39→15:19)
[2022-01-16] MEDS: Lactated Ringers 1,000 ML 100 ML IVCONT ×3 (00:40→15:53)
[2022-01-16 04:54] LABS: Basophils Percent Auto 0.3 % (0-2); Eosinophils Absolute Auto 0.1 X10*3/uL (0.0-0.4); Eosinophils Percent Auto 1.6 % (0-4); Hematocrit 35.8 % (37.0-47.0); Hemoglobin 11.4 g/dl (12.0-16.0); Imm Gran Abs Auto 0.02 X10*3/uL (0.00-0.03); Imm Gran Pct Auto 0.3 % (0.0-0.4); Lymphocytes Absolute Auto 0.9 X10*3/uL (1.2-4.9); Lymphocytes Percent Auto 15.7 % (20-40); Mean Corpuscular HGB Conc 31.8 g/dl (31.0-35.0); Mean Corpuscular Hemoglobin 30.3 pg (27.0-33.0); Mean Corpuscular Volume 95.2 fL (80.0-98.0); Mean Platelet Volume 10.6 fL (9.4-12.3); Monocytes Absolute Auto 0.5 X10*3/uL (0.1-1.2); Monocytes Percent Auto 9.1 % (2-11); Neutrophils Absolute Auto 4.2 x10*3/uL (2.0-8.3); Platelet Count 181 X10*3/uL (160-400); Red Blood Count 3.76 X10*6/uL (4.20-5.50); Red Cell Distribution Width 12.4 % (11.0-16.0); White Blood Count 5.7 X10*3/uL (4.8-10.8)
[2022-01-16 04:55] LABS: MANUAL DIFF FLAG NO
[2022-01-16 05:25] LABS: Anion Gap 11 (12-20); Blood Urea Nitrogen 19 mg/dL (9-16); Calcium 8.4 mg/dL (8.4-10.2); Carbon Dioxide 24 mmol/L (22-29); Chloride 109 mmol/L (96-108); Creatinine Clr Calc Pharmacy 41.7; Estimated Glomerular Filt Rate 43; Glucose Random 120 mg/dL (60-115); Potassium 4.1 mmol/L (3.3-5.1); Sodium 140 mmol/L (135-145)
--- NOTE | 2022-01-16 08:39 | MHC.CM.PN ---
Patient is still in ED over and not reachable by phone;CM spoke with /DR. Luciano Martinez/also listed as PCP. Patient lives in a house with Dr. 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 Home/no services is the goal for dc and CM has initiated and will follow for dc planning.Patient has received Moderna vax X3.
[2022-01-16 09:31] LABS: COVID-19 Test Negative (Negative)
[2022-01-16] MEDS: Cholecalciferol (Vitamin D3) 25 MCG TABLET PO (09:32)
[2022-01-16] MEDS: 0.9 % Sodium Chloride Flush 3 ML SYRINGE IVFLUSH (09:32)
[2022-01-16] MEDS: Pravastatin Sodium 40 MG TABLET PO (09:32)
[2022-01-16] MEDS: Loratadine 10 MG TABLET PO (09:32)
[2022-01-16] MEDS: FLUoxetine HCl 20 MG CAPSULE PO (09:32)
[2022-01-16] MEDS: Omeprazole 20 MG CAPSULE.DR PO (09:32)
--- NOTE | 2022-01-16 10:07 | P.PNIM_ITS ---
Subjective Subjective Date of Service: 01/16/22 Interval History: cc: flank pain interval history: feeling better Cardiovascular Cardiovascular: Reports no additional cardiovascular complaints Respiratory Respiratory: Reports no additional respiratory complaints Physical Exam Vital Signs: Vital Signs: Last Vital Signs Temp 98.8 F 01/16/22 09:42 Pulse 67 01/16/22 09:42 Resp 18 01/16/22 09:42 BP 129/60 01/16/22 09:42 Pulse Ox 93 01/16/22 09:42 BMI result Body Mass Index 28.3 General: AO X 3, no acute distress Resp: CTA bilateral, no accessory muscles used CVS: S1,S2,RRR GI: soft, non tender, non distended Neuro: motor grossly intact, alert Psych: appropriate affect, appropriate insight Objective Data Active Medications Acetaminophen (Acetaminophen Supp 650 Mg Supp.Rect) 650 mg [place] Q6H PRN PRN Reason: Pain, Mild (Pain Scale 1-3) Docusate Sodium (Docusate Sodium 100 Mg Capsule) 100 mg PO DAILY PRN PRN Reason: Constipation Fluoxetine HCl (Fluoxetine Hcl 20 Mg Capsule) 20 mg PO DAILY [facility] Last Admin: 01/16/22 09:32 Dose: 20 mg Documented by: CALEB Ceftriaxone Sodium 1 gm/ (Sodium Chloride) 50 mls @ 100 mls/hr IV Q24H [facility] Lactated Ringer's (Lr) 1,000 mls @ 100 mls/hr IVCONT .Q10H [facility] Last Admin: 01/16/22 06:14 Dose: 100 mls/hr Documented by: GOLDEN Loratadine (Loratadine 10 Mg Tablet) 10 mg PO DAILY [facility] Last Admin: 01/16/22 09:32 Dose: 10 mg Documented by: CALEB Morphine Sulfate (Morphine Sulfate 4 Mg/Ml Cartridge) 4 mg IVPUSH Q4H PRN; Protocol PRN Reason: Pain, Severe (Pain Scale 7-10) Last Admin: 01/16/22 05:35 Dose: 4 mg Documented by: HIRAM Omeprazole (Omeprazole 20 Mg Capsule.Dr) 20 mg PO DAILY@0630 [facility] Last Admin: 01/16/22 09:32 Dose: 20 mg Documented by: CALEB Ondansetron HCl (Ondansetron Hcl 4 Mg/2 Ml Vial) 4 mg IVPUSH Q8H PRN PRN Reason: Nausea and Vomiting Pravastatin Sodium (Pravastatin Sodium 40 Mg Tablet) 40 mg PO DAILY [facility] Last Admin: 01/16/22 09:32 Dose: 40 mg Documented by: CALEB Sodium Chloride (0.9 % Sodium Chloride Flush 3 Ml Syringe) 3 ml IVFLUSH QSHIFT [facility] Last Admin: 01/16/22 09:32 Dose: 3 ml Documented by: CALEB Vitamin D (Cholecalciferol (Vitamin D3) 25 Mcg Tablet) 25 mcg PO DAILY [facility] Last Admin: 01/16/22 09:32 Dose: 25 mcg Documented by: CALEB Labs CBC & Chem 7: 01/16/22 04:32 01/16/22 04:32 Labs: Laboratory Results - last 24 hr 01/15/22 01/15/22 01/15/22 14:08 14:08 17:34 MCV 92.5 MCH 31.1 MCHC 33.6 RDW 12.2 Plt Count 241 MPV 10.5 Immature Gran % (Auto) 0.2 Neut % (Auto) 88.2 H Lymph % (Auto) 7.4 L [place] % (Auto) 3.9 Eos % (Auto) 0.2 Baso % (Auto) 0.1 Lymph # (Auto) 0.7 L [place] # (Auto) 0.3 Eos # (Auto) 0.0 Baso # (Auto) 0.0 Abs Immat Gran (auto) 0.02 Absolute Neuts (auto) 7.7 Absolute Nucleated RBC 0.000 Nucleated RBC % (auto) 0.0 Anion Gap 16 Estim Creat Clear Calc 58.4 Estimated GFR > 60 Random Glucose 154 H Lactic Acid Calcium 9.9 Total Bilirubin 0.6 Direct Bilirubin 0.2 AST 31 ALT 27 Alkaline Phosphatase 57 Total Protein 7.3 Albumin 4.5 Lipase 17 Urine Color BROWN A Urine Appearance HAZY Urine pH 5.5 Ur Specific [place] >= 1.030 H Urine Protein 1+ H Urine Glucose (UA) NEG Urine Ketones 15 Urine Blood 3+ H Urine Nitrite NEG Ur Leukocyte Esterase 1+ H Urine RBC 76-150 H Urine WBC 5-9 H Ur Squamous Epith Cells 1+ Other Crystals 4+ Urine Bacteria TRACE COVID-19 ([facility]) COVID-19 Clin Com 01/15/22 01/16/22 01/16/22 18:55 04:32 04:32 MCV 95.2 MCH 30.3 MCHC 31.8 RDW 12.4 Plt Count 181 MPV 10.6 Immature Gran % (Auto) 0.3 Neut % (Auto) 73.0 Lymph % (Auto) 15.7 L [place] % (Auto) 9.1 Eos % (Auto) 1.6 Baso % (Auto) 0.3 Lymph # (Auto) 0.9 L [place] # (Auto) 0.5 Eos # (Auto) 0.1 Baso # (Auto) 0.0 Abs Immat Gran (auto) 0.02 Absolute Neuts (auto) 4.2 Absolute Nucleated RBC 0.000 Nucleated RBC % (auto) 0.0 Anion Gap 11 L Estim Creat Clear Calc 41.7 Estimated GFR 43 Random Glucose 120 H Lactic Acid 0.9 Calcium 8.4 D Total Bilirubin Direct Bilirubin AST ALT Alkaline Phosphatase Total Protein Albumin Lipase Urine Color Urine Appearance Urine pH Ur Specific [place] Urine Protein Urine Glucose (UA) Urine Ketones Urine Blood Urine Nitrite Ur Leukocyte Esterase Urine RBC Urine WBC Ur Squamous Epith Cells Other Crystals Urine Bacteria COVID-19 ([facility]) COVID-19 Clin Com 01/16/22 09:05 MCV MCH MCHC RDW Plt Count MPV Immature Gran % (Auto) Neut % (Auto) Lymph % (Auto) [place] % (Auto) Eos % (Auto) Baso % (Auto) Lymph # (Auto) [place] # (Auto) Eos # (Auto) Baso # (Auto) Abs Immat Gran (auto) Absolute Neuts (auto) Absolute Nucleated RBC Nucleated RBC % (auto) Anion Gap Estim Creat Clear Calc Estimated GFR Random Glucose Lactic Acid Calcium Total Bilirubin Direct Bilirubin AST ALT Alkaline Phosphatase Total Protein Albumin Lipase Urine Color Urine Appearance Urine pH Ur Specific [place] Urine Protein Urine Glucose (UA) Urine Ketones Urine Blood Urine Nitrite Ur Leukocyte Esterase Urine RBC Urine WBC Ur Squamous Epith Cells Other Crystals Urine Bacteria COVID-19 ([facility]) Negative COVID-19 Clin Com See Note Assessment and Plan (1) Renal calculi: Status: Acute Plan 66F presented with flank pain right obstructing nephrolithiasis with hydronephrosis complicated by UTI continue ceftriaxone, ivf, pain meds, follow up cultures npo for cysto gerd ppi depression prozac reason for continued hospitalization: obstructing stone causing pain requiring IV pain meds and urgent urological procedure Quality Stroke Does the patient have a stroke diagnosis?: No VTE Prior VTE?: No VTE Risk Level:: Medical - moderate - high VTE Device Contraindication: N/A - Device Ordered VTE Drug Contraindication: Treatment Not Indicated
--- NOTE | 2022-01-16 12:31 | P.CNUR_ITS ---
History of Present Illness Consult details Consult date: 01/16/22 Narrative: 66-year-old female Had been diagnosed with kidney stones approximately 1 month ago No prior stone interventions Past 2 days has had significant pain, nausea, vomiting on the right side Unable to tolerate oral intake Imaging shows 7 mm distal right ureteric stone with mild hydroureteronephrosis - 7 mm stone on left lower pole Creatinine 1.2, WBC 4.7, UA positive RBC and leuks, nitrite negative Given continued symptomatology and size of stone recommend intervention with ureteroscopy, laser lithotripsy and stent placement Review of Systems Constitutional: Constitutional: Reports as per HPI and Reports no additional constitutional complaints Cardiovascular: Cardiovascular: Reports as per HPI and Reports no additional cardiovascular complaints Respiratory: Respiratory: Reports as per HPI and Reports no additional respiratory complaints Gastrointestinal: Gastrointestinal: Reports as per HPI and Reports no additional gastrointestinal complaints Genitourinary: Genitourinary: Reports as per HPI Musculoskeletal: Musculoskeletal: Reports no additional musculoskeletal complaints and Reports as per HPI Neurologic: Reports system reviewed and no additional complaints, except as documented and Reports as per HPI [facility] Past Medical History Medical History (Updated 01/16/22 @ 06:45 by Brittany Mejias MD) GERD (gastroesophageal reflux disease) Renal calculi Family History Family History (Updated 01/16/22 @ 06:43 by Brittany Mejias MD) Other No family history of coronary artery disease Surgical History Surgical History (Updated 01/16/22 @ 06:43 by Brittany Mejias MD) No pertinent past surgical history Social History Social History Household Members: Spouse Housing: House Do you presently have visiting nurse or other home services: No Alcohol intake: never Patient Tobacco Use Status: Never used Tobacco service: No Current occupational status: employed Meds Allergies Allergy/AdvReac Type Severity Reaction Status Date / Time No Known Allergies Allergy Verified 01/08/22 12:59 Active Medications: Current Medications Acetaminophen (Acetaminophen Supp 650 Mg Supp.Rect) 650 mg [place] Q6H PRN PRN Reason: Pain, Mild (Pain Scale 1-3) Docusate Sodium (Docusate Sodium 100 Mg Capsule) 100 mg PO DAILY PRN PRN Reason: Constipation Fluoxetine HCl (Fluoxetine Hcl 20 Mg Capsule) 20 mg PO DAILY [facility] Last Admin: 01/16/22 09:32 Dose: 20 mg Documented by: Ceftriaxone Sodium 1 gm/ (Sodium Chloride) 50 mls @ 100 mls/hr IV Q24H [facility] Lactated Ringer's (Lr) 1,000 mls @ 100 mls/hr IVCONT .Q10H [facility] Last Admin: 01/16/22 06:14 Dose: 100 mls/hr Documented by: Levofloxacin (Levaquin) 500 mg in 100 mls @ 100 mls/hr IV PREOP ONE Stop: 01/16/22 13:28 Loratadine (Loratadine 10 Mg Tablet) 10 mg PO DAILY [facility] Last Admin: 01/16/22 09:32 Dose: 10 mg Documented by: Morphine Sulfate (Morphine Sulfate 4 Mg/Ml Cartridge) 4 mg IVPUSH Q4H PRN; Protocol PRN Reason: Pain, Severe (Pain Scale 7-10) Last Admin: 01/16/22 05:35 Dose: 4 mg Documented by: Omeprazole (Omeprazole 20 Mg Capsule.Dr) 20 mg PO DAILY@0630 [facility] Last Admin: 01/16/22 09:32 Dose: 20 mg Documented by: Ondansetron HCl (Ondansetron Hcl 4 Mg/2 Ml Vial) 4 mg IVPUSH Q8H PRN PRN Reason: Nausea and Vomiting Pravastatin Sodium (Pravastatin Sodium 40 Mg Tablet) 40 mg PO DAILY [facility] Last Admin: 01/16/22 09:32 Dose: 40 mg Documented by: Sodium Chloride (0.9 % Sodium Chloride Flush 3 Ml Syringe) 3 ml IVFLUSH QSHIFT [facility] Last Admin: 01/16/22 09:32 Dose: 3 ml Documented by: Vitamin D (Cholecalciferol (Vitamin D3) 25 Mcg Tablet) 25 mcg PO DAILY [facility] Last Admin: 01/16/22 09:32 Dose: 25 mcg Documented by: Home Medications Medication Instructions Recorded Confirmed Last Taken Type fluoxetine 20 mg capsule 20 mg PO DAILY 01/08/22 01/15/22 Unknown History omeprazole magnesium 20 mg 20 mg PO DAILY 01/08/22 01/15/22 Unknown History tablet,delayed release (Prilosec OTC) pravastatin 40 mg tablet 40 mg PO DAILY 01/08/22 01/15/22 Unknown History solifenacin 10 mg tablet 10 mg PO DAILY 01/08/22 01/15/22 Unknown History cetirizine 10 mg tablet (Zyrtec) 10 mg PO DAILY 01/15/22 01/15/22 Unknown History cholecalciferol (vitamin D3) 25 25 mcg PO DAILY 01/15/22 01/15/22 Unknown History mcg (1,000 unit) tablet Physical Exam Vital Signs: Vital Signs: Last Vital Signs Temp 97.7 F 01/16/22 11:49 Pulse 64 01/16/22 11:49 Resp 15 01/16/22 11:49 BP 140/66 H 01/16/22 11:49 Pulse Ox 95 01/16/22 11:49 BMI result Body Mass Index 28.3 Const: General: cooperative, healthy appearing, comfortable and no acute distress Orientation/consciousness: patient oriented x3 HENMT: Face and sinus: Yes normal facial exam Mouth: moist mucous membranes Neck: Neck: Yes normal visual inspection, Yes full ROM and Yes trachea midline Chest: Chest palpation & inspection: normal inspection of the chest Resp: Effort & Inspection: normal respiratory effort, able to speak in complete sentences and no respiratory distress GI: Inspection: Yes normal to inspection Back/Spine/Pelvis: Cervical Spine: normal cervical lordosis Thoracic/Lumbar Spine: thoracic and lumbar spine normal to inspection Skin: General skin exam: no rashes or lesions noted Neuro: General: patient oriented x3, tone normal and moves all extremities Extrem: General: Yes normal to inspection and Yes capillary refill normal Results Labs Result diagrams: 01/16/22 04:32 01/16/22 04:32 Labs: Abnormal lab results 01/15/22 01/15/22 01/15/22 Range/Units 14:08 14:08 17:34 RBC (4.20-5.50) X10*6/uL Hgb (12.0-16.0) g/dl Hct (37.0-47.0) % Neut % (Auto) 88.2 H (45-73) % Lymph % (Auto) 7.4 L (20-40) % Lymph # (Auto) 0.7 L (1.2-4.9) X10*3/uL Chloride (96-108) mmol/L Anion Gap (12-20) BUN 20 H (9-16) mg/dL Random Glucose 154 H (60-115) mg/dL Urine Color BROWN A Ur Specific [place] >= 1.030 H (1.005-1.025) Urine Protein 1+ H (NEG-TRACE) MG/DL Urine Blood 3+ H (NEG) Ur Leukocyte Esterase 1+ H (NEG) Urine RBC 76-150 H (0) /HPF Urine WBC 5-9 H (0-4) /HPF 01/16/22 01/16/22 Range/Units 04:32 04:32 RBC 3.76 L (4.20-5.50) X10*6/uL Hgb 11.4 L D (12.0-16.0) g/dl Hct 35.8 L (37.0-47.0) % Neut % (Auto) (45-73) % Lymph % (Auto) 15.7 L (20-40) % Lymph # (Auto) 0.9 L (1.2-4.9) X10*3/uL Chloride 109 H (96-108) mmol/L Anion Gap 11 L (12-20) BUN 19 H (9-16) mg/dL Random Glucose 120 H (60-115) mg/dL Urine Color Ur Specific [place] (1.005-1.025) Urine Protein (NEG-TRACE) MG/DL Urine Blood (NEG) Ur Leukocyte Esterase (NEG) Urine RBC (0) /HPF Urine WBC (0-4) /HPF Short CBC 01/15/22 01/16/22 Range/Units 14:08 04:32 WBC 8.8 5.7 (4.8-10.8) X10*3/uL Hgb 14.6 11.4 L D (12.0-16.0) g/dl Hct 43.4 35.8 L (37.0-47.0) % Plt Count 241 181 (160-400) X10*3/uL BMP 01/15/22 01/16/22 14:08 04:32 Sodium 138 140 Potassium 4.6 4.1 Chloride 103 109 H Carbon Dioxide 24 24 BUN 20 H 19 H Creatinine 0.88 1.23 Calcium 9.9 8.4 D Liver Function 01/15/22 Range/Units 14:08 Total Bilirubin 0.6 (0.0-1.0) mg/dL Direct Bilirubin 0.2 (0.0-0.5) mg/dL AST 31 (5-31) U/L ALT 27 (0-31) U/L Alkaline Phosphatase 57 (39-117) U/L Albumin 4.5 (3.5-5.0) g/dL Urine 01/15/22 Range/Units 17:34 Urine Color BROWN A Urine Appearance HAZY Urine pH 5.5 (5.0-8.0) Ur Specific [place] >= 1.030 H (1.005-1.025) Urine Protein 1+ H (NEG-TRACE) MG/DL Urine Glucose (UA) NEG (NEG) MG/DL All other labs normal. Assessment and Plan (1) Hydronephrosis concurrent with and due to calculi of kidney and ureter: Status: Acute Plan Ureteroscopy We discussed the nature of the decision and reasonable alternatives for performing the above surgery. Interventions include chemical dissolution, ESWL, ureteroscopy with laser lithotripsy and stent placement, PCNL. Options such as medical therapy were discussed. The relative uncertainties and benefits related to each alternate procedure were adequately discussed. General surgical risks including, but not limited to, pain, bleeding, infection, myocardial infarction, pulmonary embolus, deep vein thrombosis and cerebrovascular accident which may result in further hospitalization were discussed. Full disclosure of the procedure as well as all major risks, benefits and complications were discussed including but not limited to damage to the urethra, bladder and kidney infection, damage to the ureter, stent migration or malposition, scarring to the renal pelvis, remnant stone fragments, subsequent stone passage with need for secondary procedures. The overall secondary procedure rate is approximately 10-15%. The success rate of the procedure was discussed. Success of the procedure in the short-term does not necessarily guarantee that long-term success will be maintained. Suitable follow up will need to be maintained. The patient showed understanding of discussion and wishes to proceed with - cystoscopy, retrograde, ureteroscopy, possible lithotripsy/stone basketing and stent on the right side Procedures Date of Service Date of Service: 01/16/22
--- NOTE | 2022-01-16 13:31 | P.CONAN_ITS ---
[facility] Active Problems Active Problems: All Active Problems (Updated 01/16/22 @ 06:45 by Brittany Mejias MD) UTI (urinary tract infection) (Acute) Urinary tract obstruction by kidney stone (Acute) Hydronephrosis concurrent with and due to calculi of kidney and ureter (Acute) Acute pyelonephritis (Acute) Rupture of ureter (Acute) Renal calculi (Acute) Right flank pain (Acute ~12/16/20) obstructive sleep apnea on cpap Past Medical History Medical History (Updated 01/16/22 @ 06:45 by Brittany Mejias MD) GERD (gastroesophageal reflux disease) Renal calculi Family History Family History (Updated 01/16/22 @ 06:43 by Brittany Mejias MD) Other No family history of coronary artery disease Surgical History Surgical History (Updated 01/16/22 @ 06:43 by Brittany Mejias MD) No pertinent past surgical history History of Problems with Anesthesia: No Social History Social History Household Members: Spouse Housing: House Do you presently have visiting nurse or other home services: No Alcohol intake: never Patient Tobacco Use Status: Never used Tobacco service: No Current occupational status: employed Meds Allergies Allergy/AdvReac Type Severity Reaction Status Date / Time No Known Allergies Allergy Verified 01/08/22 12:59 Active Medications: Current Medications Acetaminophen (Acetaminophen Supp 650 Mg Supp.Rect) 650 mg [place] Q6H PRN PRN Reason: Pain, Mild (Pain Scale 1-3) Docusate Sodium (Docusate Sodium 100 Mg Capsule) 100 mg PO DAILY PRN PRN Reason: Constipation Fluoxetine HCl (Fluoxetine Hcl 20 Mg Capsule) 20 mg PO DAILY [facility] Last Admin: 01/16/22 09:32 Dose: 20 mg Documented by: Ceftriaxone Sodium 1 gm/ (Sodium Chloride) 50 mls @ 100 mls/hr IV Q24H [facility] Lactated Ringer's (Lr) 1,000 mls @ 100 mls/hr IVCONT .Q10H [facility] Last Admin: 01/16/22 06:14 Dose: 100 mls/hr Documented by: Loratadine (Loratadine 10 Mg Tablet) 10 mg PO DAILY [facility] Last Admin: 01/16/22 09:32 Dose: 10 mg Documented by: Morphine Sulfate (Morphine Sulfate 4 Mg/Ml Cartridge) 4 mg IVPUSH Q4H PRN; Protocol PRN Reason: Pain, Severe (Pain Scale 7-10) Last Admin: 01/16/22 05:35 Dose: 4 mg Documented by: Omeprazole (Omeprazole 20 Mg Capsule.) 20 mg PO DAILY@0630 [facility] Last Admin: 01/16/22 09:32 Dose: 20 mg Documented by: Ondansetron HCl (Ondansetron Hcl 4 Mg/2 Ml Vial) 4 mg IVPUSH Q8H PRN PRN Reason: Nausea and Vomiting Pravastatin Sodium (Pravastatin Sodium 40 Mg Tablet) 40 mg PO DAILY [facility] Last Admin: 01/16/22 09:32 Dose: 40 mg Documented by: Sodium Chloride (0.9 % Sodium Chloride Flush 3 Ml Syringe) 3 ml IVFLUSH QSHIFT [facility] Last Admin: 01/16/22 09:32 Dose: 3 ml Documented by: Vitamin D (Cholecalciferol (Vitamin D3) 25 Mcg Tablet) 25 mcg PO DAILY [facility] Last Admin: 01/16/22 09:32 Dose: 25 mcg Documented by: Home Medications Medication Instructions Recorded Confirmed Last Taken Type fluoxetine 20 mg capsule 20 mg PO DAILY 01/08/22 01/15/22 Unknown History omeprazole magnesium 20 mg 20 mg PO DAILY 01/08/22 01/15/22 Unknown History tablet,delayed release (Prilosec OTC) pravastatin 40 mg tablet 40 mg PO DAILY 01/08/22 01/15/22 Unknown History solifenacin 10 mg tablet 10 mg PO DAILY 01/08/22 01/15/22 Unknown History cetirizine 10 mg tablet (Zyrtec) 10 mg PO DAILY 01/15/22 01/15/22 Unknown History cholecalciferol (vitamin D3) 25 25 mcg PO DAILY 01/15/22 01/15/22 Unknown History mcg (1,000 unit) tablet Exam Exam Date and Time: January 16, 2022 1331 Height,Weight and Vital Signs: Height 5 ft 3 in Weight 72.575 kg Last Vital Signs Temp 97.7 F 01/16/22 11:49 Pulse 64 01/16/22 11:49 Resp 15 01/16/22 11:49 BP 140/66 H 01/16/22 11:49 Pulse Ox 95 01/16/22 11:49 Pertinent Lab Results Pertinent Lab Results: Laboratory Tests 01/15/22 01/15/22 01/15/22 14:08 14:08 17:34 WBC 8.8 RBC 4.69 Hgb 14.6 Hct 43.4 MCV 92.5 MCH 31.1 MCHC 33.6 RDW 12.2 Plt Count 241 MPV 10.5 Immature Gran % (Auto) 0.2 Neut % (Auto) 88.2 H Lymph % (Auto) 7.4 L [place] % (Auto) 3.9 Eos % (Auto) 0.2 Baso % (Auto) 0.1 Lymph # (Auto) 0.7 L [place] # (Auto) 0.3 Eos # (Auto) 0.0 Baso # (Auto) 0.0 Abs Immat Gran (auto) 0.02 Absolute Neuts (auto) 7.7 Absolute Nucleated RBC 0.000 Nucleated RBC % (auto) 0.0 Sodium 138 Potassium 4.6 Chloride 103 Carbon Dioxide 24 Anion Gap 16 BUN 20 H Creatinine 0.88 Estim Creat Clear Calc 58.4 Estimated GFR > 60 Random Glucose 154 H Lactic Acid Calcium 9.9 Total Bilirubin 0.6 Direct Bilirubin 0.2 AST 31 ALT 27 Alkaline Phosphatase 57 Total Protein 7.3 Albumin 4.5 Lipase 17 Urine Color BROWN A Urine Appearance HAZY Urine pH 5.5 Ur Specific [place] >= 1.030 H Urine Protein 1+ H Urine Glucose (UA) NEG Urine Ketones 15 Urine Blood 3+ H Urine Nitrite NEG Ur Leukocyte Esterase 1+ H Urine RBC 76-150 H Urine WBC 5-9 H Ur Squamous Epith Cells 1+ Other Crystals 4+ Urine Bacteria TRACE COVID-19 ([facility]) COVID-19 Clin Com 01/15/22 01/16/22 01/16/22 18:55 04:32 04:32 WBC 5.7 RBC 3.76 L Hgb 11.4 L D Hct 35.8 L MCV 95.2 MCH 30.3 MCHC 31.8 RDW 12.4 Plt Count 181 MPV 10.6 Immature Gran % (Auto) 0.3 Neut % (Auto) 73.0 Lymph % (Auto) 15.7 L [place] % (Auto) 9.1 Eos % (Auto) 1.6 Baso % (Auto) 0.3 Lymph # (Auto) 0.9 L [place] # (Auto) 0.5 Eos # (Auto) 0.1 Baso # (Auto) 0.0 Abs Immat Gran (auto) 0.02 Absolute Neuts (auto) 4.2 Absolute Nucleated RBC 0.000 Nucleated RBC % (auto) 0.0 Sodium 140 Potassium 4.1 Chloride 109 H Carbon Dioxide 24 Anion Gap 11 L BUN 19 H Creatinine 1.23 Estim Creat Clear Calc 41.7 Estimated GFR 43 Random Glucose 120 H Lactic Acid 0.9 Calcium 8.4 D Total Bilirubin Direct Bilirubin AST ALT Alkaline Phosphatase Total Protein Albumin Lipase Urine Color Urine Appearance Urine pH Ur Specific [place] Urine Protein Urine Glucose (UA) Urine Ketones Urine Blood Urine Nitrite Ur Leukocyte Esterase Urine RBC Urine WBC Ur Squamous Epith Cells Other Crystals Urine Bacteria COVID-19 ([facility]) COVID-19 Clin Com 01/16/22 09:05 WBC RBC Hgb Hct MCV MCH MCHC RDW Plt Count MPV Immature Gran % (Auto) Neut % (Auto) Lymph % (Auto) [place] % (Auto) Eos % (Auto) Baso % (Auto) Lymph # (Auto) [place] # (Auto) Eos # (Auto) Baso # (Auto) Abs Immat Gran (auto) Absolute Neuts (auto) Absolute Nucleated RBC Nucleated RBC % (auto) Sodium Potassium Chloride Carbon Dioxide Anion Gap BUN Creatinine Estim Creat Clear Calc Estimated GFR Random Glucose Lactic Acid Calcium Total Bilirubin Direct Bilirubin AST ALT Alkaline Phosphatase Total Protein Albumin Lipase Urine Color Urine Appearance Urine pH Ur Specific [place] Urine Protein Urine Glucose (UA) Urine Ketones Urine Blood Urine Nitrite Ur Leukocyte Esterase Urine RBC Urine WBC Ur Squamous Epith Cells Other Crystals Urine Bacteria COVID-19 ([facility]) Negative COVID-19 Clin Com See Note Airway Mallampati Class: II TM Dist: >3cm Neck ROM: Full Loose/Missing/Broken Teeth: Yes (Slightly loose upper right incisor) Heart: RRR Lungs: CTA Assessment and Plan Assessment Anesthesia Assessment: Anesthesia Plan Discussed and Chart Reviewed Final Anesthetic Review History of Problems with Anesthesia: No NPO: Yes ASA Class: III Final Preanesthetic Review: Meds/Allgs Chart Reviewed, Consent Obtained/Reviewed and Anes Risks/Benef Reviewed Patient Risk: Intermediate Procedure Risk: Low Anesthetic Plan Anesthetic Plan: GA Disposition: Standard PACU
--- NOTE | 2022-01-16 16:28 | MHC.SHP ---
Pre-Procedural Eval Section A Date of Service: 01/16/22 The patient is an INPATIENT: Yes Changes since office visit: No Cold of Flu in the past 2 weeks, No New Medical Problems, No Changes in Medication and No Patient answered all questions The History & Physical has been completed within 30 days and I have reviewed it.: Yes Section B Chief Complaint: Obstructing Kidney stone Details of Present Illness: right distal ureteric stone Allergies: Allergies Allergy/AdvReac Type Severity Reaction Status Date / Time No Known Allergies Allergy Verified 01/08/22 12:59 Plan Diagnosis/Plan: Unchanged ( cystoscopy, right retrograde, right ureteroscopy with laser lithotripsy) I have reviewed the history and physical and performed a pertinent physical examination on my patient. No changes have occurred unless specified.
--- NOTE | 2022-01-16 17:06 | W.PM.OPN ---
Operative Note Operative Note Date of Service: 01/16/22 Narrative: PreOperative Diagnosis: distal right ureteric stone with hydroureteronephrosis Post Operative Diagnosis: distal right ureteric stone with hydroureteronephrosis Procedure: - cystoscopy, right retrograde - right dilatation of ureteric orifice under fluoroscopy - right ureteroscopy, laser lithotripsy, stone basketing - right stent placement Surgeon: Dr Marlon Maya Anesthesia: General Indications for procedure: 66-year-old female. Distal right ureteric stone approximately 7 mm. Right hydroureteronephrosis with forniceal rupture. Persistent nausea and vomiting. Recommend intervention. Procedure: After informed consent was verified patient was brought to the operating placed in supine position. Anesthesia was administered per protocol. Patient was placed in modified dorsal lithotomy position and prepped and draped in a sterile fashion. Safety pause time-out and side of surgery confirmed. Antibiotics confirmed. A 22 Egyptian cystoscope was inserted per urethra. Bladder was normal in its entirety. Both ureteric orifices were in normal position. The Right ureteric orifice was cannulated and a retrograde examination was performed. filling defects seen at junction between mid and distal ureter . A Sensor guidewire was placed up to the level of the renal pelvis under fluoroscopy. The rigid cystoscope was removed. A Palmetto dilator was placed over the Sensor guidewire and used to dilate the ureteric orifice under fluoroscopy. The dilator was removed. The semi rigid ureteral scope was placed alongside the Sensor guidewire. stone was encountered and using a laser fiber broken into small pieces. Using a flat wire basket multiple passes were required to remove debris. Specimen will be sent for analysis A 6 Egyptian by 24 cm double-J stent was placed into the renal pelvis and bladder under a combination of fluoroscopy and direct visualization. The bladder was emptied. The patient tolerated the procedure well and was extubated in the operating room, and transferred in stable condition to the recovery area. Pathology: stone Drains: 6 Egyptian by 24 cm double-J stent
[2022-01-16] MEDS: Acetaminophen 325 MG TABLET 650 MG PO (19:01)
[2022-01-16] MEDS: Phenazopyridine HCL 100 MG TABLET PO (19:01)
[2022-01-16] MEDS: cefTRIAXone sodium 1 GM in 0.9 % Sodium Chloride 50 ML IV (20:52)
[2022-01-17 03:47] VITALS: BP 116/55; PULSE 70; RESP 18; TEMP 36.4; O2SAT 95
[2022-01-17] MEDS: Omeprazole 20 MG CAPSULE.DR PO (05:50)
[2022-01-17] MEDS: Lactated Ringers 1,000 ML 100 ML IVCONT (05:53)
[2022-01-17 06:55] LABS: Hematocrit 33.9 % (37.0-47.0); Hemoglobin 10.8 g/dl (12.0-16.0); Mean Corpuscular HGB Conc 31.9 g/dl (31.0-35.0); Mean Corpuscular Hemoglobin 30.6 pg (27.0-33.0); Mean Platelet Volume 9.9 fL (9.4-12.3); Platelet Count 166 X10*3/uL (160-400); Red Blood Count 3.53 X10*6/uL (4.20-5.50); Red Cell Distribution Width 12.6 % (11.0-16.0); White Blood Count 4.1 X10*3/uL (4.8-10.8)
[2022-01-17 07:26] LABS: Anion Gap 9 (12-20); Blood Urea Nitrogen 9 mg/dL (9-16); Calcium 8.5 mg/dL (8.4-10.2); Carbon Dioxide 29 mmol/L (22-29); Chloride 107 mmol/L (96-108); Creatinine Clr Calc Pharmacy 77.9; Estimated Glomerular Filt Rate > 60; Glucose Fasting 129 mg/dL (60-99); Potassium 4.1 mmol/L (3.3-5.1); Sodium 141 mmol/L (135-145)
[2022-01-17 07:57] VITALS: BP 116/58; PULSE 65; RESP 18; TEMP 36.8; O2SAT 93
[2022-01-17] MEDS: FLUoxetine HCl 20 MG CAPSULE PO (08:27)
[2022-01-17] MEDS: 0.9 % Sodium Chloride Flush 3 ML SYRINGE IVFLUSH (08:27)
[2022-01-17] MEDS: Pravastatin Sodium 40 MG TABLET PO (08:27)
[2022-01-17] MEDS: Loratadine 10 MG TABLET PO (08:27)
[2022-01-17] MEDS: Cholecalciferol (Vitamin D3) 25 MCG TABLET PO (08:27)
--- NOTE | 2022-01-17 09:16 | P.PNUR_ITS ---
Subjective Subjective Date of Service: 01/17/22 Interval history: Doing well Creatinine resolved Minor irritation to urine Will have cysto stent removal in office in 2 weeks Forniceal rupture At that point can determine 24 hour urine and Stone composition Physical Exam Vital Signs: Vital Signs: Last Vital Signs Temp 98.2 F 01/17/22 07:57 Pulse 65 01/17/22 07:57 Resp 18 01/17/22 07:57 BP 116/58 L 01/17/22 07:57 Pulse Ox 93 01/17/22 07:57 BMI result Body Mass Index 28.3 Const: General: cooperative, healthy appearing, comfortable and no acute distress Orientation/consciousness: patient oriented x3 HENMT: Face and sinus: Yes normal facial exam Mouth: moist mucous membranes Neck: Neck: Yes normal visual inspection, Yes full ROM and Yes trachea midline Chest: Chest palpation & inspection: normal inspection of the chest Resp: Effort & Inspection: normal respiratory effort, able to speak in complete sentences and no respiratory distress GI: Inspection: Yes normal to inspection Back/Spine/Pelvis: Cervical Spine: normal cervical lordosis Thoracic/Lumbar Spine: thoracic and lumbar spine normal to inspection Skin: General skin exam: no rashes or lesions noted Neuro: General: patient oriented x3, tone normal and moves all extremities Extrem: General: Yes normal to inspection and Yes capillary refill normal Urology Results Labs CBC & Chem 7: 01/17/22 06:44 01/17/22 06:44 Labs: Laboratory Results - last 24 hr 01/16/22 01/17/22 01/17/22 09:05 06:44 06:44 WBC 4.1 L RBC 3.53 L Hgb 10.8 L Hct 33.9 L MCV 96.0 MCH 30.6 MCHC 31.9 RDW 12.6 Plt Count 166 MPV 9.9 Absolute Nucleated RBC 0.000 Nucleated RBC % (auto) 0.0 Sodium 141 Potassium 4.1 Chloride 107 Carbon Dioxide 29 Anion Gap 9 L BUN 9 D Creatinine 0.66 Estim Creat Clear Calc 77.9 Estimated GFR > 60 Fasting Glucose 129 H Calcium 8.5 COVID-19 (HANG) Negative COVID-19 Clin Com See Note Progress Note: A&P Assessment and plan (1) Urinary tract obstruction by kidney stone: Status: Acute (2) UTI (urinary tract infection): Status: Acute Plan Follow 2 week cysto stent removal Fall Risk Details Current Medications: Current Medications Acetaminophen (Acetaminophen Supp 650 Mg Supp.Rect) 650 mg MN Q6H PRN PRN Reason: Pain, Mild (Pain Scale 1-3) Acetaminophen (Acetaminophen 325 Mg Tablet) 650 mg PO ONCE PRN PRN Reason: Pain, Mild (Pain Scale 1-3) Albuterol Sulfate (Albuterol Sulfate (0.083%) 2.5 Mg/3 Ml Vial.Neb) 2.5 mg INHALE ONCE PRN PRN Reason: Wheezing Docusate Sodium (Docusate Sodium 100 Mg Capsule) 100 mg PO DAILY PRN PRN Reason: Constipation Fentanyl (Fentanyl Citrate/Pf 100 Mcg/2 Ml Vial) 50 mcg IVPUSH Q5M PRN; Protocol PRN Reason: Pain, Severe (Pain Scale 7-10) Fentanyl (Fentanyl Citrate/Pf 100 Mcg/2 Ml Vial) 25 mcg IVPUSH Q5M PRN; Protocol PRN Reason: Pain, Moderate (Pain Scale 4-6 Fluoxetine HCl (Fluoxetine Hcl 20 Mg Capsule) 20 mg PO DAILY [facility] Last Admin: 01/17/22 08:27 Dose: 20 mg Documented by: Ceftriaxone Sodium 1 gm/ (Sodium Chloride) 50 mls @ 100 mls/hr IV Q24H [facility] Last Infusion: 01/16/22 21:26 Dose: Infused Documented by: Lactated Ringer's (Lr) 1,000 mls @ 100 mls/hr IVCONT .Q10H [facility] Last Admin: 01/17/22 05:53 Dose: 100 mls/hr Documented by: Loratadine (Loratadine 10 Mg Tablet) 10 mg PO DAILY [facility] Last Admin: 01/17/22 08:27 Dose: 10 mg Documented by: Morphine Sulfate (Morphine Sulfate 4 Mg/Ml Cartridge) 4 mg IVPUSH Q4H PRN; Protocol PRN Reason: Pain, Severe (Pain Scale 7-10) Last Admin: 01/16/22 15:19 Dose: 4 mg Documented by: Omeprazole (Omeprazole 20 Mg Capsule.) 20 mg PO DAILY@0630 [facility] Last Admin: 01/17/22 05:50 Dose: 20 mg Documented by: Ondansetron HCl (Ondansetron Hcl 4 Mg/2 Ml Vial) 4 mg IVPUSH Q8H PRN PRN Reason: Nausea and Vomiting Ondansetron HCl (Ondansetron Hcl 4 Mg/2 Ml Vial) 4 mg IVPUSH ONCE PRN PRN Reason: Nausea and Vomiting Oxycodone HCl (Oxycodone Hcl Immed Release 5 Mg Tablet) 10 mg PO ONCE PRN PRN Reason: Pain, Severe (Pain Scale 7-10) Oxycodone HCl (Oxycodone Hcl Immed Release 5 Mg Tablet) 5 mg PO ONCE PRN PRN Reason: Pain, Severe (Pain Scale 7-10) Pravastatin Sodium (Pravastatin Sodium 40 Mg Tablet) 40 mg PO DAILY [facility] Last Admin: 01/17/22 08:27 Dose: 40 mg Documented by: Sodium Chloride (0.9 % Sodium Chloride Flush 3 Ml Syringe) 3 ml IVFLUSH QSHIFT [facility] Last Admin: 01/17/22 08:27 Dose: 3 ml Documented by: Tramadol HCl (Tramadol Hcl 50 Mg Tablet) 50 mg PO Q6H PRN PRN Reason: Pain, Moderate (Pain Scale 4-6 Vitamin D (Cholecalciferol (Vitamin D3) 25 Mcg Tablet) 25 mcg PO DAILY [facility] Last Admin: 01/17/22 08:27 Dose: 25 mcg Documented by: Time Spent With Patient Time: Total time spent is greater than 50% in coordination of care (as documented) at patient's floor/unit and/or counseling patient: Time with patient: less than 15 minutes Progress Note: Quality Stroke Does the patient have a stroke diagnosis?: No
--- NOTE | 2022-01-17 09:48 | MHC.CM.PN ---
Per MD, Patient will be medically cleared for dc to home today, no services.
--- NOTE | 2022-01-17 10:24 | P.DS_ITS ---
DS: Providers Provider Date of Service: 01/17/22 Date of admission: 01/15/22 21:42 Primary care physician: Luciano Martinez MD Consults: 01/15/22 21:41 Consult to Urology Routine Consulting Provider: Marlon Maya Reason for consultation: Obstructing stone Has provider been notified: Yes DS: Diagnosis Discharge Diagnosis (1) Urinary tract obstruction by kidney stone: Status: Acute (2) Acute pyelonephritis: Status: Acute (3) Hydronephrosis concurrent with and due to calculi of kidney and ureter: Status: Acute DS: Summary Hospital Course Hospital Course: Admission note HPI ?this is a 66-year-old female with past medical history of renal calculi who presents to the hospital with complaints of right flank abdominal pain.? Symptoms started the day prior to presentation, pain is severe, radiating to the groin and lower abdomen, patient denies any urinary symptoms including no dysuria, urgency or frequency.? Patient reports history of kidney stones with most recent a couple of weeks ago, she follows with Urology.? Urology give her some pain medication but patient reports that she has so much nausea and vomiting that she could not keep anything down. She took Aleve with some improvement of her pain but has now remain constant with no relief.he has no chest pain, no shortness of breath, no fever? but has been having chills overnight.? She denies any? headache, no change in vision, no lower extremity edema.? On arrival to the ED? patient is hemodynamically stable has significant abnormal vitals labs are significant for WBC? count of 8.8, labs otherwise unremarkable, UA is positive for leukocyte Estrace, WBC. ? Abdomen pelvic CT shows a 7 mm calculus that had been present in the right l ower pole which has migrated into the distal 1/3 of the right ureter causing marked hydro nephrosis.? 8 mm nonobstructing left renal calculus. hospital course The patient was admitted for right obstructing ureteric stone with evidence of hydronephrosis and pyelonephritis. The patient was treated with IV fluid, IV antibiotics and pain medication as her blood and urine cultures remain negative. Seen by urologist Dr. Maya who removed the stone by cystoscopy and placed a stent. Continue Ceftin as prescribed to finish total of 10 days of antibiotics To follow-up with Dr. Maya in the office for stent removal as scheduled Time Spent with Patient Time attestation: Total time spent providing and/or coordinating discharge services: Discharge coordination time: Greater than 30 minutes Quality: Stroke Does the patient have a stroke diagnosis?: No Physical Exam Vital Signs: Vital Signs: Last Vital Signs Temp 98.2 F 01/17/22 07:57 Pulse 65 01/17/22 07:57 Resp 18 01/17/22 07:57 BP 116/58 L 01/17/22 07:57 Pulse Ox 93 01/17/22 07:57 BMI result Body Mass Index 28.3 Const: Other: Constitutional : Alert, oriented, not in distress Neck : Normal inspection, Supple Cardiovascular : RRR, S1 S2, no lower extremity edema Respiratory : Good bilateral air entry, no crackles, wheezes or rhonchi Gastrointestinal: soft, lax, Normal bowel sounds, Non tender Skin : Warm, Dry Neurological : Alert & oriented x3, No focal deficit DS: Data Data Completed and Pending Pending studies at discharge: Pending at discharge 01/16/22 17:20 Surgical [PTH] Routine Labs on day of discharge: Laboratory Results - last 24 hr 01/17/22 01/17/22 06:44 06:44 WBC 4.1 L RBC 3.53 L Hgb 10.8 L Hct 33.9 L MCV 96.0 MCH 30.6 MCHC 31.9 RDW 12.6 Plt Count 166 MPV 9.9 Absolute Nucleated RBC 0.000 Nucleated RBC % (auto) 0.0 Sodium 141 Potassium 4.1 Chloride 107 Carbon Dioxide 29 Anion Gap 9 L BUN 9 D Creatinine 0.66 Estim Creat Clear Calc 77.9 Estimated GFR > 60 Fasting Glucose 129 H Calcium 8.5 Preliminary micro results at discharge 01/15/22 19:32 Blood Culture - Preliminary Blood - Venous No growth after 24 hours. 01/15/22 18:55 Blood Culture - Preliminary Blood - Venous No growth after 24 hours. Discharge Plan Discharge Patient Disposition: Home, Self-Care Discharge Diagnosis: Ureteric stone Pyelonephritis Referrals: Luciano Martinez MD [Primary Care Provider] - 1 Week Discharge Medications: New cefuroxime axetil 500 mg tablet 500 mg PO BID Qty: 16 0RF Continued cetirizine [Zyrtec] 10 mg Tablet 10 mg PO DAILY 0RF cholecalciferol (vitamin D3) 25 mcg (1,000 unit) Tablet 25 mcg PO DAILY 0RF solifenacin 10 mg tablet 10 mg PO DAILY 0RF pravastatin 40 mg tablet 40 mg PO DAILY 0RF fluoxetine 20 mg capsule 20 mg PO DAILY 0RF omeprazole magnesium [Prilosec OTC] 20 mg tablet,delayed release (DR/EC) 20 mg PO DAILY 0RF Discharge Orders: Discharge Order (Routine); Ordered 01/17/22 Ordered By: Hayden Diaz Diet: advance to usual diet Activity on Discharge: As tolerated Stand Alone Forms: Patient Portal Discharge page Care Plan Goals: Read below Health Concerns: Read below Plan of Treatment: Read below Assessment: you were admitted to the hospital for evaluation of flank pain. Images showed an obstructive stone to your right ureter. Seen by urologist Dr. Maya who removed the stone and placed a stent. You were treated with IV antibiotics for urinary tract infection. Continue Ceftin as prescribed to finish total of 10 days of antibiotics To follow-up with Dr. Maya in the office for stent removal as scheduled
[2022-01-17 11:21] VITALS: BP 140/63; PULSE 71; RESP 18; TEMP 36.6; O2SAT 94
--- NOTE | 2022-01-17 14:33 | HO.POSTANES ---
Post Anesthesia Evaluation Post Anesthesia Evaluation Vital Signs: Vital Signs Temp Pulse Resp BP Pulse Ox 01/17/22 11:21 97.9 F 71 18 140/63 H 94 01/17/22 07:57 98.2 F 65 18 116/58 L 93 01/17/22 03:47 97.5 F 70 18 116/55 L 95 Anesthesia: General Mental Status: Awake Pain Control: Satisfactory Nausea/Vomiting: None Hydration: Adequate Anesthesia-Related Issues: No Anes. Related Issues
[2022-01-22 00:52] LABS: Stone Source KIDNEY STONE
== END 2022-01-17 13:19 | disposition home or self-care (01) | DRG 661 ==
LOC: HO.ED 20:09 → HO.EDOVER 22:20 → HO.IMC 01-16 08:08
PROVIDERS: Internal Medicine; Nurse Practitioner Family; Urology; Admitting Provider Internal Medicine; Emergency Provider Emergency Medicine; PCP Internal Medicine; Visit Provider Student in an Organized Health Care Education/Training Program
PROC: 0T768DZ Dilation of Right Ureter with Intraluminal Device, Via Natural or Artificial Opening Endoscopic (ICD-10-PCS; principal; 2022-01-16 16:00)
DX: N13.6 Pyonephrosis (principal); F32.A Depression, unspecified; K21.9 Gastro-esophageal reflux disease without esophagitis; Z20.822 Contact with and (suspected) exposure to COVID-19; Z87.442 Personal history of urinary calculi; Z79.899 Other long term (current) drug therapy
CPT/HCPCS: 36415; 74176; 80048; 80076; 81001; 82365; 83605; 83690; 85025; 85027; 87040; 87086; 87635; 88300; 96361; 96374; 96375; 99285; 99291; C1758; C1769; C2617; J0696; J1885; J1956; J2250; J2270; J2405; J3010; Q9967

== ENCOUNTER → 2022-01-30 14:55 | Outpatient (BNVA) | payer OTHER, SELFPAY | PROVIDERS: PCP Internal Medicine; Visit Provider Urology | DX: Z48.816 Encounter for surgical aftercare following surgery on the genitourinary system (principal); Z87.442 Personal history of urinary calculi | CPT/HCPCS: 52310 ==

== ENCOUNTER 2022-03-25 15:53 | Outpatient (REF) | payer OTHER, SELFPAY ==
--- NOTE | ~2022-03-25 | US_ITS ---
EXAMINATION: US RETROPERITONEAL LIMITED (RENAL ONLY) CLINICAL INFORMATION: Calculus of kidney. COMPARISON: CT abdomen and pelvis without contrast 01/15/2022. TECHNIQUE: Real-time imaging of the kidneys. FINDINGS: RIGHT KIDNEY: 11.4 x 4.3 x 4.8 cm (SAG x AP x TRV). The kidney is normal in size, contour, and echogenicity. Renal cortical thickness is normal. No calculi or focal parenchymal lesions. No hydronephrosis. LEFT KIDNEY: 12.1 x 5.3 x 5.2 cm (SAG x AP x TRV). The kidney is normal in size, contour, and echogenicity. Renal cortical thickness is normal. No renal calculi or hydronephrosis. There is a heterogeneously hypoechoic structure within the midpole measuring 2.2 x 2.1 x 1.8 cm, not clearly evident on the prior CT. As seen on the prior CT, there is a 2.2 cm simple cyst in the lower pole of left kidney. US/US renal BI IMPRESSION: * No urinary calculi or hydronephrosis on the current examination. * Nonspecific hypoechoic, possibly complicated cyst within the mid pole of left kidney, not previously evident on the unenhanced CT. Recommend MRI of the kidneys without and with contrast for further evaluation. * As seen on the prior CT, there is a simple cyst in lower pole left kidney, Bosniak 1.
== END 2022-03-25 15:54 | disposition home or self-care (01) ==
LOC: HO.US 15:53
DX: N20.0 Calculus of kidney (principal)
CPT/HCPCS: 76775

== ENCOUNTER 2022-04-11 18:07 | Outpatient (REF) | payer OTHER, SELFPAY ==
--- NOTE | ~2022-04-11 | MR_ITS ---
EXAMINATION: MRI KIDNEY WITH AND WITHOUT CONTRAST CLINICAL INFORMATION: Question complex left renal cyst. COMPARISON: Previous renal ultrasound March [address] of the abdomen and pelvis January 2022. TECHNIQUE: Sagittal axial and coronal sequences through the abdomen with and without contrast. The patient received 7 mL Gadavist contrast. FINDINGS: Lung bases are clear. The liver is slightly enlarged, right lobe measuring 22 cm in length. The liver is normal in signal and contour. No focal liver lesion. The gallbladder is normal. There is no biliary duct dilatation. The pancreas is normal. The main pancreatic duct is normal. The spleen is normal. The adrenal glands are normal. There is a 1 cm simple cyst exophytic to the posterior lower pole of the left kidney. There may be a left extra renal pelvis. No left renal mass or complex cyst is seen. The kidneys are otherwise normal. There is mild diverticulosis of the colon. Bowel is otherwise normal. Vascular structures are normal. No ascites or adenopathy is seen. There are degenerative changes of the spine. 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 There is a probable L3 vertebral body hemangioma. MR/MR kidney wo/w con IMPRESSION: 1 cm simple cyst exophytic to the posterior lower pole of the left kidney. Probable left extrarenal pelvis. No complex left renal cyst or mass seen.
== END 2022-04-11 18:08 | disposition home or self-care (01) ==
LOC: HO.MRI 18:07
PROVIDERS: Visit Provider Urology
DX: N28.1 Cyst of kidney, acquired (principal)
CPT/HCPCS: 74181; A9585

== ENCOUNTER 2022-10-14 15:23 | Outpatient (REF) | payer BC, SELFPAY ==
--- NOTE | ~2022-10-14 | US_ITS ---
EXAMINATION: US RETROPERITONEAL LIMITED (RENAL ONLY) CLINICAL INFORMATION: Calculus of kidney. COMPARISON: MRI kidneys 04/11/2022. Renal ultrasound 03/25/2022. CT abdomen and pelvis 01/15/2022. TECHNIQUE: Real-time imaging of the kidneys. FINDINGS: RIGHT KIDNEY: 11.6 x 4.8 x 5.8 cm (SAG x AP x TRV). The kidney is normal in size, contour, and echogenicity. Junctional parenchymal defect. Renal cortical thickness is otherwise normal. There are 3 small stones measuring 5 mm in the upper pole, 3 x 4 mm in the upper pole, and 4 x 5 mm in the midpole. No focal parenchymal lesions or hydronephrosis. LEFT KIDNEY: 11.1 x 5.3 x 5.3 cm (SAG x AP x TRV). The kidney is normal in size, contour, and echogenicity. Renal cortical thickness is normal. There is a 1.7 x 1.6 x 1.4 cm hypoechoic lesion in the lower pole. This has internal echoes that are difficult to clear. This is unchanged in size from previous renal ultrasound March 2022 was found to represent a simple cyst on MRI. There is a second 2.1 x 2 x 1.7 cm hypoechoic area in the medial upper pole. This has internal echoes that are difficult to clear. This is similar to previous renal ultrasound March 2022 as well. No corresponding renal cyst was seen on previous MRI April 2022, and this was thought to represent a left extrarenal pelvis as opposed to a cyst. No renal calculi or hydronephrosis. US/US renal BI IMPRESSION: Small right renal stones. Stable left renal findings.
== END 2022-10-14 15:24 | disposition home or self-care (01) ==
LOC: HO.US 15:23
PROVIDERS: Visit Provider Urology
DX: N20.0 Calculus of kidney (principal)
CPT/HCPCS: 76775

== ENCOUNTER → 2022-11-08 12:34 | Outpatient (BNVA) | payer BC, SELFPAY | PROVIDERS: PCP Internal Medicine; Visit Provider Urology | DX: N20.0 Calculus of kidney (principal) ==

== ENCOUNTER 2023-05-14 07:47 | Outpatient (REF) | payer BC, SELFPAY ==
--- NOTE | ~2023-05-14 | US_ITS ---
EXAMINATION: US RETROPERITONEAL LIMITED (RENAL ONLY) CLINICAL INFORMATION: Calculus of kidney. COMPARISON: Renal ultrasound 10/14/2022 and 03/25/2022. MRI kidney 04/11/2022. CT abdomen and pelvis 01/15/2022. TECHNIQUE: Real-time imaging of the kidneys. FINDINGS: RIGHT KIDNEY: 11.3 x 4.5 x 5.0 cm (SAG x AP x TRV). The kidney is normal in size, contour, and echogenicity. Renal cortical thickness is normal. No calculi seen or focal parenchymal lesions. No hydronephrosis. LEFT KIDNEY: 12.0 x 6.2 x 4.3 cm (SAG x AP x TRV). The kidney is normal in size, contour, and echogenicity. Renal cortical thickness is normal. No renal calculi or hydronephrosis. Midpole cyst measures 1.7 x 1.6 x 1.9 cm. US/US renal BI IMPRESSION: Left renal cyst. No suspicious features.
== END 2023-05-14 07:48 | disposition home or self-care (01) ==
LOC: HO.US 07:47
PROVIDERS: Visit Provider Urology
DX: N20.0 Calculus of kidney (principal)
CPT/HCPCS: 76775

== ENCOUNTER → 2023-05-22 14:55 | Outpatient (BNVA) | payer BC, SELFPAY | PROVIDERS: Visit Provider Urology ==

== ENCOUNTER 2023-05-28 15:36 | Outpatient (AMB) | payer BC, SELFPAY ==
--- NOTE | 2023-05-28 12:56 | A.OFFVIS_ITS ---
Intake Intake Visit Reasons: US Results Intake Note: Patient presents today for a follow-up on US results: Meds- Vitamin B 6 & Potassium Citrate Allergies to Antibiotic- None Blood Thinner- None Vp Hr Diversity Required: No Accompanied by: Self / Same As Patient Allergies No Known Allergies Allergy (Verified 05/28/23 15:38) Medication List - Last Reconciled 05/28/23 by Mary Jo Jackson MD cetirizine (Zyrtec) 10 mg PO DAILY cholecalciferol (vitamin D3) 25 mcg PO DAILY fluoxetine 20 mg PO DAILY nirmatrelvir-ritonavir 300 mg (150 mg x 2)-100 mg (Paxlovid) PO PER PKG DIR, discontinue vesicare and statin if taking paxlovid, can resume 5 days later omeprazole magnesium (Prilosec OTC) 20 mg PO DAILY potassium citrate ER 20 mEq (2 x 10 mEq (1,080 mg)) PO BID 90 days pravastatin 40 mg PO DAILY pravastatin 80 mg PO DAILY pyridoxine (vitamin B6) 100 mg PO DAILY 90 days solifenacin 10 mg PO DAILY HPI HPI Comments History of Present Illness Details Yamilka is a 67-year-old female who presents for Telehealth visit to discuss ultrasound results. 05/28/23-- The patient was seen by Dr. Maya in the past for kidney stones, uric acid. She had a telehealth visit last on 11/08/22. She is prescribed vitamin B6 100 mg daily and potassium citrate 20 mEq b.i.d. She had a renal ultrasound done on 05/14/23. Results reviewed -- Renal ultrasound from 05/14/23-- No renal calculi noted. A small cyst in the left kidney. In comparison to last ultrasound in October 2022, there were some right kidney stones. She is also on VESIcare for overactive bladder. She denies any new complaints. She is compliant on her medications. Plan: Reviewed the renal ultrasound results with the patient. Continue the potassium citrate, vitamin B6, and VESIcare 10 mg daily. Cont to monitor kidneys with renal ultrasound. Follow up in 9 months via telehealth to review ultrasound result with Dr. Maya at that time. [facility] Medical History GERD (gastroesophageal reflux disease) Renal calculi Surgical History No pertinent past surgical history Family History Father No problems noted. Mother No problems noted. Other No family history of coronary artery disease Social History Household Members: Spouse Housing: House Do you presently have visiting nurse or other home services: No Alcohol intake: never Patient Tobacco Use Status: Never used Tobacco service: No Current occupational status: employed Review of Systems Const All systems reviewed & are unremarkable except as noted in HPI and below Reports no additional complaints Eyes Reports no additional complaints ENT Reports no additional complaints Card Denies dyspnea Resp Denies cough and Denies dyspnea GI Reports no additional complaints Reports no additional complaints Musc Reports no additional complaints Skin/Breast Denies rash and Denies unusual bruising Neuro Reports no additional complaints Psych Reports no additional complaints Endo Reports no additional complaints James/Lymph Reports no additional complaints Aller/Immun Reports no additional complaints Results Reviewed Results Reviewed: Date - 05/14/23 FINDINGS: RIGHT KIDNEY: 11.3 x 4.5 x 5.0 cm (SAG x AP x TRV). The kidney is normal in size, contour, and echogenicity. Renal cortical thickness is normal. No calculi seen or focal parenchymal lesions. No hydronephrosis. LEFT KIDNEY: 12.0 x 6.2 x 4.3 cm (SAG x AP x TRV). The kidney is normal in size, contour, and echogenicity. Renal cortical thickness is normal. No renal calculi or hydronephrosis. Midpole cyst measures 1.7 x 1.6 x 1.9 cm. IMPRESSION: Left renal cyst. No suspicious features. Assessment & Plan Assessment & Plan (1) Overactive bladder: Code(s): N32.81 - Overactive bladder (2) Uric acid kidney stone: Code(s): N20.0 - Calculus of kidney Plan Reviewed the renal ultrasound results with the patient. Continue the potassium citrate, vitamin B6, and VESIcare 10 mg daily. Cont to monitor kidneys with renal ultrasound. Follow up in 9 months via telehealth to review ultrasound result with Dr. Maya at that time. Orders: Orders US renal BI 8 Months N20.0 - Calculus of kidney Medications: New solifenacin 10 mg PO DAILY 90 tabs 3RF Patient Instructions: The patient had an opportunity to ask questions regarding treatment plan. All questions were answered. Imaging, Laboratory studies and physical exam results were discussed and reviewed in detail. No major barriers to understanding were identified. The patient expressed understanding and agreement with the above treatment plan. The patient is aware they should contact our office by phone for worsening of their current condition or the appearance of new symptoms. Compliance is encouraged with any medications and followup testing that is ordered. It is a privilege to be allowed the opportunity to participate in the urologic care of your patient. If you have any questions or concerns regarding treatment for the above conditions please do not hesitate to contact me. The office telephone contact is [phone]. This note is constructed in part using voice recognition software. While every effort has been made to ensure accuracy executive coordinator errors may have been included. Yours sincerely, Mary Jo Jackson MD Telehealth Telehealth Location of provider rendering services: practice address Location of patient: address on file Patient Identification confirmed using: Name, : Yes Telehealth method: voice only Patient verbally consented to treatment: Yes Patient verbally consented to billing insurance company: Yes Patient informed of any privacy concerns related to visit: Yes Minutes spent on Phone/Video with Pt.: 10 Coding Level of Care Code Est Pt Level 3 (57949) Diagnoses Overactive bladder N32.81 Uric acid kidney stone N20.0
== END 2023-05-28 15:52 | disposition home or self-care (01) ==
LOC: HO.HUSH 15:36
PROVIDERS: Visit Provider Urology
DX: N32.81 Overactive bladder (principal); N20.0 Calculus of kidney
CPT/HCPCS: 99213

== ENCOUNTER → 2023-05-28 15:36 | Outpatient (BNVA) | payer BC, SELFPAY | PROVIDERS: Visit Provider Urology ==

== ENCOUNTER 2023-06-30 14:48 | Outpatient (REF) | payer BC, SELFPAY ==
--- NOTE | ~2023-06-30 | MM_ITS ---
EXAMINATION: MM SCREENING DIGITAL BREAST TOMOSYNTHESIS, BILATERAL CLINICAL INFORMATION: Screening. Asymptomatic. COMPARISON: Mammography: This study is compared with the most recent previous mammogram from 2020 as well as prior exams dating back to 2017. TECHNIQUE: Digital breast tomosynthesis is performed in both the craniocaudal and mediolateral oblique views along with computer-aided detection (CAD). Synthesized 2D images are generated from the tomosynthesis. FINDINGS: The breasts are almost entirely fatty (ACR BI-RADS breast composition Category a). There are no significant masses, abnormal calcifications, or other abnormalities. MM/MM tomosynthesis screening BI IMPRESSION: No mammographic evidence of malignancy. ASSESSMENT: BI-RADS BI-RADS 1 - Negative RECOMMENDATION: Routine annual mammography screening. 1 year F/U This examination should not preclude the clinical evaluation of a suspicious palpable abnormality. This patient's information was entered into a reminder system with a target due date for their next mammogram.
== END 2023-06-30 14:49 | disposition home or self-care (01) ==
LOC: HO.MAMMO 14:48
PROVIDERS: Visit Provider Obstetrics & Gynecology
DX: Z12.31 Encounter for screening mammogram for malignant neoplasm of breast (principal)
CPT/HCPCS: 77063; 77067

== ENCOUNTER → 2023-06-30 15:00 | Outpatient (BNV) | payer BC, SELFPAY | PROVIDERS: Visit Provider Radiology Diagnostic Radiology | DX: Z12.31 Encounter for screening mammogram for malignant neoplasm of breast (principal) | CPT/HCPCS: 77063; 77067 ==

== ENCOUNTER 2024-01-16 14:54 | Outpatient (REF) | payer BC, SELFPAY ==
--- NOTE | ~2024-01-16 | US_ITS ---
EXAMINATION: US RETROPERITONEAL LIMITED (RENAL ONLY) CLINICAL INFORMATION: Calculus of kidney. COMPARISON: Renal ultrasound 05/14/2023 and 10/14/2022. MRI kidney 04/11/2022. CT abdomen and pelvis 01/15/2022. TECHNIQUE: Real-time imaging of the kidneys. FINDINGS: RIGHT KIDNEY: 11.8 x 4.1 x 4.2 cm (SAG x AP x TRV). The kidney is normal in size, contour, and echogenicity. Renal cortical thickness is normal. No calculi or focal parenchymal lesions. No hydronephrosis. LEFT KIDNEY: 12.1 x 5.7 x 5.2 cm (SAG x AP x TRV). The kidney is normal in size, contour, and echogenicity. Renal cortical thickness is normal. No renal calculi or hydronephrosis. A benign lower pole lateral 1.6 cm Bosniak class I renal cyst is noted which requires no additional imaging or follow up. No solid renal masses are seen. Incidental note is made of hepatic steatosis. US/US renal BI IMPRESSION: 1. Normal-appearing kidneys. No renal calculi are seen. 2. Incidentally noted hepatic steatosis.
== END 2024-01-16 14:55 | disposition home or self-care (01) ==
LOC: HO.US 14:54
PROVIDERS: Visit Provider Urology
DX: N20.0 Calculus of kidney (principal)
CPT/HCPCS: 76775

== ENCOUNTER 2024-03-02 14:28 | Outpatient (AMB) | payer BC, SELFPAY ==
--- NOTE | 2024-03-02 14:35 | A.OFFVIS_ITS ---
Intake Visit Reasons: 9m/US(set) Intake Note: Patient is Present for Telephone Follow Up For Urology Med: Vitamin B6, Solifenacin Antibiotic Allergy:None Blood Thinner: None Allergies No Known Allergies Allergy (Verified 03/02/24 14:36) Medication List - Last Reconciled 03/02/24 by Marlon Maya MD cetirizine (Zyrtec) 10 mg PO DAILY cholecalciferol (vitamin D3) 25 mcg PO DAILY fluoxetine 20 mg PO DAILY nirmatrelvir-ritonavir 300 mg (150 mg x 2)-100 mg (Paxlovid) PO PER PKG DIR, discontinue vesicare and statin if taking paxlovid, can resume 5 days later omeprazole magnesium (Prilosec OTC) 20 mg PO DAILY potassium citrate ER 10 mEq PO BID 90 days pravastatin 40 mg PO DAILY pravastatin 80 mg PO DAILY pyridoxine (vitamin B6) 50 mg PO DAILY 90 days solifenacin 10 mg PO DAILY HPI Comments Details: Yamilka is a pleasant female. She is a patient of Dr. Martinez. She seen for the following urologic conditions - uric acid nephrolithiasis Telemedicine Evaluation 15 min Consultation Doximeelusion Hanane Video Stones resolved on potassium citrate Reduce pass potassium citrate to 10 mEq b.i.d. Reduce vitamin B6 100 mg to 50 mg daily Has been on solifenacin for urinary urgency Extent surveillance to 12 months Nephrolithiasis Uric acid stone former Intervention - 01/29 right ureteroscopy with laser lithotripsy Imaging - 01/29 CT scan 7 mm distal right ureteric stone, 6 mm left stone - 05/01 renal MRI right 1 cm simple cyst, left extrarenal pelvis - no evidence of stones - 01/31 renal US no stones Stone composition - 01/29 80% uric acid with 20% calcium oxalate Therapeutic plan - continue potassium citrate therapy and surveillance imaging [facility] Medical History GERD (gastroesophageal reflux disease) Renal calculi Surgical History No pertinent past surgical history Family History Father No problems noted. Mother No problems noted. Other No family history of coronary artery disease Social History Household Members: Spouse Housing: House Do you presently have visiting nurse or other home services: No Alcohol intake: never Patient Tobacco Use Status: Never used Tobacco service: No Current occupational status: employed Review of Systems Const All systems reviewed & are unremarkable except as noted in HPI and below Reports no additional complaints Resp Reports no additional complaints GI Reports no additional complaints Reports as per HPI Musc Reports no additional complaints Physical Exam Telemedicine evaluation Appropriate responses Regular breathing rate and rhythm HEENT Head: Yes normal to inspection Ears: hearing grossly normal bilaterally Eyes General: appearance normal, both eyes and all related structures Neck Neck: Yes normal visual inspection Chest Chest palpation & inspection: normal inspection of the chest Resp Effort & Inspection: normal respiratory effort and able to speak in complete sentences Telehealth Telehealth Location of provider rendering services: practice address Location of patient: address on file Patient Identification confirmed using: Name, : Yes Telehealth method: video Patient verbally consented to treatment: Yes Patient verbally consented to billing insurance company: Yes Patient informed of any privacy concerns related to visit: Yes Minutes spent on Phone/Video with Pt.: 15 Assessment & Plan Assessment & Plan (1) Overactive bladder: Code(s): N32.81 - Overactive bladder Category: Medical (2) Uric acid kidney stone: Code(s): N20.0 - Calculus of kidney Category: Medical Plan Twelve month follow-up renal ultrasound Orders: Orders US renal BI 12 Months N20.0 - Calculus of kidney Medications: Changed From pyridoxine (vitamin B6) 100 mg PO DAILY 90 days 90 tabs 1RF N13.2 - Hydronephrosis with renal and ureteral calculous obstruction, N20.0 - Calculus of kidney To pyridoxine (vitamin B6) 50 mg PO DAILY 90 days 90 tabs 3RF N13.2 - Hydronephrosis with renal and ureteral calculous obstruction, N20.0 - Calculus of kidney From potassium citrate ER 20 mEq (2 x 10 mEq (1,080 mg)) PO BID 90 days 360 tabs 1RF N20.0 - Calculus of kidney To potassium citrate ER 10 mEq PO BID 90 days 180 tabs 3RF N20.0 - Calculus of kidney Patient Instructions: Imaging studies, laboratory and physical exam results were discussed and reviewed in detail. No major barriers to patient understanding were identified. An opportunity to ask questions regarding the treatment plan was provided. All questions were answered. The patient expressed understanding and agreement with the above treatment plan. The patient is aware they should contact our office by phone for worsening of their current condition or the appearance of new urologic symptoms. Compliance is encouraged with any medications and followup testing that is ordered. It is a privilege to participate in the urologic care of your patient. If you have any questions or concerns regarding treatment for the above conditions, or other urologic issues, please do not hesitate to contact me. The office telephone contact is [phone]. This note is constructed using voice recognition software. While every effort has been made to ensure accuracy automotive generator repairer errors may have been included. Yours sincerely, Dr Marlon Maya MD, [facility] - Urology Providers of Expert, Compassionate Care for the Genitourinary System Coding Level of Care Code Tele Est Pt Level 3 (05447) Diagnoses Overactive bladder N32.81 Uric acid kidney stone N20.0
== END 2024-03-02 14:56 | disposition home or self-care (01) ==
LOC: HO.HUSH 14:29
PROVIDERS: PCP Family Medicine; Visit Provider Urology
DX: N32.81 Overactive bladder (principal); N20.0 Calculus of kidney
CPT/HCPCS: 99213

== ENCOUNTER → 2024-03-02 14:28 | Outpatient (BNVA) | payer BC, SELFPAY | PROVIDERS: PCP Family Medicine; Visit Provider Urology ==

== ENCOUNTER 2024-07-01 14:53 | Outpatient (REF) | payer BC, SELFPAY ==
--- NOTE | ~2024-07-01 | MM_ITS ---
EXAMINATION: MM SCREENING DIGITAL BREAST TOMOSYNTHESIS, BILATERAL CLINICAL INFORMATION: Screening. Asymptomatic. COMPARISON: Mammography: This study is compared with prior exams dating back to 2018. TECHNIQUE: Digital breast tomosynthesis is performed in both the craniocaudal and mediolateral oblique views along with computer-aided detection (CAD). Synthesized 2D images are generated from the tomosynthesis. FINDINGS: There are scattered areas of fibroglandular density (ACR BI-RADS breast composition Category b). There are no significant masses, abnormal calcifications, or other abnormalities. MM/MM tomosynthesis screening BI IMPRESSION: No mammographic evidence of malignancy. ASSESSMENT: BI-RADS BI-RADS 1 - Negative RECOMMENDATION: Routine annual mammography screening. 1 year F/U This examination should not preclude the clinical evaluation of a suspicious palpable abnormality. This patient's information was entered into a reminder system with a target due date for their next mammogram. Electronically signed by: Diamond Dinero MD 07/22/2024 04:54 PM EDT
== END 2024-07-01 14:54 | disposition home or self-care (01) ==
LOC: HO.MAMMO 14:53
PROVIDERS: PCP Internal Medicine; Visit Provider Internal Medicine
DX: Z12.31 Encounter for screening mammogram for malignant neoplasm of breast (principal)
CPT/HCPCS: 77063; 77067

== ENCOUNTER → 2024-07-01 15:00 | Outpatient (BNV) | payer BC, SELFPAY | PROVIDERS: PCP Internal Medicine; Visit Provider Radiology Diagnostic Radiology | DX: Z12.31 Encounter for screening mammogram for malignant neoplasm of breast (principal) | CPT/HCPCS: 77063; 77067 ==

== ENCOUNTER 2025-03-01 15:45 | Outpatient (REF) | payer BC, SELFPAY ==
--- NOTE | ~2025-03-01 | US_ITS ---
EXAMINATION: US RETROPERITONEAL LIMITED (RENAL ONLY) CLINICAL INFORMATION: Calculus of kidney. COMPARISON: 01/16/2024, 05/14/2023.. TECHNIQUE: Real-time imaging of the kidneys. FINDINGS: RIGHT KIDNEY: 10.8 x 4.4 x 5.2 cm (SAG x AP x TRV). The kidney is normal in size, contour, and echogenicity. Renal cortical thickness is normal. No calculi or focal parenchymal lesions. No hydronephrosis. LEFT KIDNEY: 10.5 x 4.9 x 5.0 cm (SAG x AP x TRV). The kidney is normal in size, contour, and echogenicity. Renal cortical thickness is normal. No calculi or suspicious focal parenchymal lesions. No hydronephrosis. There is a simple lower pole cyst measuring 1.6 x 1.1 x 1.5 cm. This is stable. US/US renal BI IMPRESSION: 1. Aside from a stable simple cyst in the lower pole of the left kidney, normal examination. No renal calculi identified. Electronically signed by: Sha Fagan MD 03/02/2025 04:04 PM EDT
--- OUTSIDE RECORDS SUMMARY | 2025-03-01 18:32 | XMS_ITS | Data Portability ---
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 Not available 09/02/2022 15:03:06 09/03/2023 09/03/2023 Patient is here for annual physical today. Not available 09/03/2023 15:22:32 03/03/2024 03/03/2024 Patient is here for follow up today. Not available 03/03/2024 15:27:58 09/29/2024 09/29/2024 Patient is here for annual physical today. Not available 09/29/2024 14:30:26 Plan of Treatment Reminders Order Date Submit Date Provider Last Modified By Organization Details Last Modified Time Details Appointments FOLLOW UP 15 2024 03:15P Rosenda Linares MD Not available Not available Not available Lab hemoglobi n A1C, fingersti ck 2023 024 [email or web address] [facility], [address], [address], [place], [address], 03/03/2024 15:29:54 lipid panel, serum 2023 024 [place] [employer] [facility], [address] [facility], [place], [address], 09/07/2024 22:48:09 CBC w/ auto diff 2023 024 [place] [employer] [facility], [address] [facility], [place], [address], 09/07/2024 22:48:10 TSH, serum or plasma 2023 024 [place] [employer] [facility], [address] [facility], [place], [address], 09/07/2024 22:48:10 CMP, serum or plasma 2023 024 [place] [employer] [facility], [address] [facility], [place], [address], 09/07/2024 22:48:09 hemoglobi n A1C, fingersti ck 2022 023 [facility], [address], [address], [place], [address], 09/03/2023 16:29:54 hepatitis C virus Ab, serum [address], [address], [address], [place], [address], 09/10/2023 15:54:26 CMP, serum or plasma 2022 023 [employer] [facility], [address] [facility], [place], [address], 12/18/2023 03:46:05 lipid panel, serum 2022 023 [place] [employer] [facility], [address] [facility], [place], [address], 12/18/2023 03:46:04 CBC w/ auto diff 2022 023 [place] [employer] [facility], [address] [facility], [place], [address], 12/18/2023 03:46:06 hemoglobi n A1C, fingersti ck 2021 022 [email or web address] [facility], [address] [place] [address], [address], [place], [address], 09/02/2022 15:32:01 lipid panel, serum 2021 022 [email or web address] [id number] [employer] [facility], [address] [place], [address], 06/26/2022 12:00:18 CMP, serum or plasma 2021 022 [email or web address] [id number] [employer] [facility], [address] [facility], [place], [address], 06/26/2022 12:00:18 CBC w/ auto diff 2021 022 [email or web address] [id number] [employer] [facility], [address] [facility], [place], [address], 06/26/2022 12:00:18 Referral gastroent erologist referral [address], [address] [facility] , [address], [place], [address], 09/29/2024 16:30:22 Procedures None recorded. Surgeries None recorded. Imaging electroca rdiogram 2021 022 [email or web address] [facility], [address] [place] [address], [address], [place], [address], 09/03/2022 08:46:44 Medication Orders butalbita l-acetami nophen-ca ffeine 50 mg-300 mg-40 mg capsule 2023 024 [facility]acy #[id number], [address] [place], [address], 03/03/2024 15:29:53 butalbita l-acetami nophen-ca ffeine 50 mg-300 mg-40 mg capsule 2022 023 [facility]armacy #[id number], [address] [place], [address], 09/03/2023 16:04:56 ezetimibe 10 mg tablet 2021 022 [facility]/Pharmacy #[id number], [address] [facility] [place], [address], 06/03/2022 10:20:11 pravastat in 80 mg tablet 2021 022 [facility]armacy #[id number], [address] [place], [address], 06/03/2022 10:20:11 Patient TargetsNo targets recorded. Patient InstructionsNo instructions recorded. 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 Referral for Screening for malignant neoplasm of colon Screening colonoscopy Referring Physician: Jonah Linares, Internal Medicine, Encounter Date: 09/29/2024 Results Created Date Observation Date Name Description Value Unit Range Abnormal Flag Note LastModifiedBy Organization Detail LastModifiedTime 05/21/20 22 05/21/2022 LIPID PANEL WITH REFLE X TO DIREC T LDL cholesterol, total 305 mg/dL <200 high Not Available [employer] [facility] [address] [place], [address], 05/21/2022 21:23:02 05/21/20 22 05/21/2022 LIPID PANEL WITH REFLE X TO DIREC T LDL HDL cholesterol 55 mg/dL > or = 50 normal Not Available [facility] [address] [place], [address], 05/21/2022 21:23:02 05/21/20 22 05/21/2022 LIPID PANEL WITH REFLE X TO DIREC T LDL triglyceride s 649 mg/dL <150 high If a non-f astin g speci men was colle cted, consi peyton repea t trigl yceri de testi ng on a fasti ng speci men if clini constanza indic ated. Niraj cobos et al. J. of Clin. Lipid ol. 2015; 9:129 -169. There is incre ased risk of pancr eatit is when the trigl yceri de heidi ntrat ion is very high (> or = 500 mg/dL , espec ially if > or = 1000 mg/dL ). Niraj cobos et al. J. of Clin. Lipid ol. 2015; 9:129 -169. Not Available [facility] [place] [facility] [address], [place], [address], 05/21/2022 21:23:02 05/21/20 22 05/21/2022 LIPID PANEL WITH REFLE X TO DIREC T LDL LDL-choleste rol mg/dL _(gaurang c) LDL mustapha stero l not calcu lated . Trigl yceri de level s great er than 400 mg/dL inval idate calcu lated LDL resul ts. Refer ence range : <100 Rochelle able range <100 mg/dL for prima ry preve ntion ; <70 mg/dL for patie nts with CHD or diabe tic patie nts with > or = 2 CHD risk facto rs. LDL-C is now calcu lated using the Annabelle n-Hop kins calcu latio n, which is a valid ated novel metho d provi ding katherine r accur acy than the Fried eliana equat ion in the estim ation of LDL-C . Annabelle ACHARYA et al. TRISTAN. 2013; 310(1 9): 2061- 2068 (http ://ed ucati on.Qu estDi Dash Hudsons. com/f aq/FA Q164) Not Available [employer] [facility] [place] [facility] [address], [place], [address], 05/21/2022 21:23:02 05/21/20 22 05/21/2022 LIPID PANEL WITH REFLE X TO DIREC T LDL chol/HDLC ratio 5.5 (calc ) <5.0 high Not Available [facility] [place] [facility] [address], [place], [address], 05/21/2022 21:23:02 05/21/20 22 05/21/2022 LIPID PANEL WITH REFLE X TO DIREC T LDL non HDL cholesterol 250 mg/dL _(gaurang c) <130 high For patie nts with diabe shabbir plus 1 major ASCVD risk facto r, treat ing to a non-H DL-C goal of <100 mg/dL (LDL- C of <70 mg/dL ) is consi dered a thera peuti c optio n. Not Available [employer] [facility] [place] [facility] [address], [place], [address], 05/21/2022 21:23:02 05/21/20 22 05/21/2022 LIPID PANEL WITH REFLE X TO DIREC T LDL direct LDL 167 mg/dL <100 high Rochelle able range <100 mg/dL for prima ry preve ntion ; <70 mg/dL for patie nts with CHD or diabe tic patie nts with > or = 2 CHD risk facto rs. Not Available [employer] [facility] [place] [facility] [address], [place], [address], 05/21/2022 21:23:02 05/21/20 22 05/21/2022 HEPAT IC FUNCT ION PANEL protein, total 7.1 g/dL 6.1-8. 1 normal Not Available [employer] [facility] [place] [facility] [address], [place], [address], 05/21/2022 21:23:03 05/21/20 22 05/21/2022 HEPAT IC FUNCT ION PANEL albumin 4.6 g/dL 3.6-5. 1 normal Not Available [employer] [facility] [place] [facility] [address], [place], [address], 05/21/2022 21:23:03 05/21/20 22 05/21/2022 HEPAT IC FUNCT ION PANEL globulin 2.5 g/dL_ (calc ) 1.9-3. 7 normal Not Available [facility] [address], [place], [address], 05/21/2022 21:23:03 05/21/20 22 05/21/2022 HEPAT IC FUNCT ION PANEL albumin/glob ulin ratio 1.8 (calc ) 1.0-2. 5 normal Not Available [facility] [address], [place], [address], 05/21/2022 21:23:03 05/21/20 22 05/21/2022 HEPAT IC FUNCT ION PANEL bilirubin, total 0.3 mg/dL 0.2-1. 2 normal Not Available [facility] [address], [place], [address], 05/21/2022 21:23:03 05/21/20 22 05/21/2022 HEPAT IC FUNCT ION PANEL bilirubin, direct 0.1 mg/dL < or = 0.2 normal Not Available [facility] [address], [place], [address], 05/21/2022 21:23:03 05/21/20 22 05/21/2022 HEPAT IC FUNCT ION PANEL bilirubin, indirect 0.2 mg/dL _(gaurang c) 0.2-1. 2 normal Not Available [facility] [address], [place], [address], 05/21/2022 21:23:03 05/21/20 22 05/21/2022 HEPAT IC FUNCT ION PANEL alkaline phosphatase 58 U/L 37-153 normal Not Available [facility] [employer] [facility] [address], [place], [address], 05/21/2022 21:23:03 05/21/20 22 05/21/2022 HEPAT IC FUNCT ION PANEL AST 42 U/L 10-35 high Not Available [facility] [address], [address], 05/21/2022 21:23:03 05/21/20 22 05/21/2022 HEPAT IC FUNCT ION PANEL ALT 28 U/L 6-29 normal Not Available [facility] [address], [address], 05/21/2022 21:23:03 08/29/20 22 08/29/2022 LIPID PANEL WITH REFLE X TO DIREC T LDL cholesterol, total 213 mg/dL <200 high Not Available [facility] [address], [address], 08/29/2022 22:12:44 08/29/20 22 08/29/2022 LIPID PANEL WITH REFLE X TO DIREC T LDL HDL cholesterol 62 mg/dL > or = 50 normal Not Available [facility] [address], [address], 08/29/2022 22:12:44 08/29/20 22 08/29/2022 LIPID PANEL WITH REFLE X TO DIREC T LDL triglyceride s 192 mg/dL <150 high Not Available [facility] [address], [address], 08/29/2022 22:12:44 08/29/20 22 08/29/2022 LIPID PANEL WITH REFLE X TO DIREC T LDL LDL-choleste rol 120 mg/dL _(gaurang c) high Refer ence range : <100 Rochelle able range <100 mg/dL for prima ry preve ntion ; <70 mg/dL for patie nts with CHD or diabe tic patie nts with > or = 2 CHD risk facto rs. LDL-C is now calcu lated using the Annabelle n-Hop kristina amador n, which is a valid ated novel metho d provi ding katherine r accur acy than the Fried eliana equat ion in the estim ation of LDL-C . Annabelle sharma SS et al. TRISTAN. 2013; 310(1 9): 2061- 2068 (http ://ed ucati on.Qu calinDi Dash Hudsons. com/f aq/FA Q164) Not Available [facility] [place] [facility] [address], [place], [address], 08/29/2022 22:12:44 08/29/20 22 08/29/2022 LIPID PANEL WITH REFLE X TO DIREC T LDL chol/HDLC ratio 3.4 (calc ) <5.0 normal Not Available [facility] [place] [facility] [address], [place], [address], 08/29/2022 22:12:44 08/29/20 22 08/29/2022 LIPID PANEL WITH REFLE X TO DIREC T LDL non HDL cholesterol 151 mg/dL _(gaurang c) <130 high For patie nts with diabe shabbir plus 1 major ASCVD risk facto r, treat ing to a non-H DL-C goal of <100 mg/dL (LDL- C of <70 mg/dL ) is consi dered a thera peuti c optio n. Not Available [facility] [place] [facility] [address], [place], [address], 08/29/2022 22:12:44 08/29/20 22 08/29/2022 COMPR EHENS BELINDA METAB OLIC PANEL glucose 119 mg/dL 65-99 high Fasti ng refer ence inter rick For someo ne witho ut known diabe shabbir, a gluco se value betwe en 100 and 125 mg/dL is consi stent with predi abete s and shoul d be confi rmed with a follo w-up test. Not Available [facility] [place] [facility] [address], [place], [address], 08/29/2022 22:12:44 08/29/20 22 08/29/2022 COMPR EHENS BELINDA METAB OLIC PANEL urea nitrogen (BUN) 21 mg/dL 7-25 normal Not Available [facility] [address] [place], [place], [address], 08/29/2022 22:12:44 08/29/20 22 08/29/2022 COMPR EHENS BELINDA METAB OLIC PANEL creatinine 0.71 mg/dL 0.50-1 .05 normal Not Available [facility] [address] [place], [place], [address], 08/29/2022 22:12:44 08/29/20 22 08/29/2022 COMPR EHENS BELINDA METAB OLIC PANEL eGFR 92 mL/mi n/1.7 3m2 > or = 60 normal The eGFR is based on the CKD-E PI 2020 equat ion. To calcu late the new eGFR from a previ ous Creat inine or Cysta tin C resul t, go to https ://arik dennis.anthony rosales/chely harp s/ kdoqi /gfr% 5Fcal culat or Not Available [facility] [address] [place], [place], [address], 08/29/2022 22:12:44 08/29/20 22 08/29/2022 COMPR EHENS BELINDA METAB OLIC PANEL BUN/creatini ne ratio NOT APPLIC ABLE (calc ) 6-22 Not Available [facility] [address] [place], [place], [address], 08/29/2022 22:12:44 08/29/20 22 08/29/2022 COMPR EHENS BELINDA METAB OLIC PANEL sodium 138 mmol/ L 135-14 6 normal Not Available [facility] [address], [place], [address], 08/29/2022 22:12:44 08/29/20 22 08/29/2022 COMPR EHENS BELINDA METAB OLIC PANEL potassium 4.3 mmol/ L 3.5-5. 3 normal Not Available [facility] [address], [place], [address], 08/29/2022 22:12:44 08/29/20 22 08/29/2022 COMPR EHENS BELINDA METAB OLIC PANEL chloride 99 mmol/ L 98-110 normal Not Available [facility] [address], [place], [address], 08/29/2022 22:12:44 08/29/20 22 08/29/2022 COMPR EHENS BELINDA METAB OLIC PANEL carbon dioxide 30 mmol/ L 20-32 normal Not Available [facility] [address], [place], [address], 08/29/2022 22:12:44 08/29/20 22 08/29/2022 COMPR EHENS BELINDA METAB OLIC PANEL calcium 9.7 mg/dL 8.6-10 .4 normal Not Available [facility] [address], [place], [address], 08/29/2022 22:12:44 08/29/20 22 08/29/2022 COMPR EHENS BELINDA METAB OLIC PANEL protein, total 6.5 g/dL 6.1-8. 1 normal Not Available [facility] [address], [place], [address], 08/29/2022 22:12:44 08/29/20 22 08/29/2022 COMPR EHENS BELINDA METAB OLIC PANEL albumin 4.6 g/dL 3.6-5. 1 normal Not Available [facility] [address], [place], [address], 08/29/2022 22:12:44 08/29/20 22 08/29/2022 COMPR EHENS BELINDA METAB OLIC PANEL globulin 1.9 g/dL_ (calc ) 1.9-3. 7 normal Not Available [facility] [address], [place], [address], 08/29/2022 22:12:44 08/29/20 22 08/29/2022 COMPR EHENS BELINDA METAB OLIC PANEL albumin/glob ulin ratio 2.4 (calc ) 1.0-2. 5 normal Not Available [facility] [address], [place], [address], 08/29/2022 22:12:44 08/29/20 22 08/29/2022 COMPR EHENS BELINDA METAB OLIC PANEL bilirubin, total 0.5 mg/dL 0.2-1. 2 normal Not Available [facility] [address], [place], [address], 08/29/2022 22:12:44 08/29/20 22 08/29/2022 COMPR EHENS BELINDA METAB OLIC PANEL alkaline phosphatase 54 U/L 37-153 normal Not Available [facility] [address], [place], [address], 08/29/2022 22:12:44 08/29/20 22 08/29/2022 COMPR EHENS BELINDA METAB OLIC PANEL AST 41 U/L 10-35 high Not Available [facility] [address], [place], [address], 08/29/2022 22:12:44 08/29/20 22 08/29/2022 COMPR EHENS BELINDA METAB OLIC PANEL ALT 41 U/L 6-29 high Not Available [facility] [address], [place], [address], 08/29/2022 22:12:44 08/29/20 22 08/29/2022 CBC (INCL UDES DIFF/ PLT) white blood cell count 3.8 thous and/u L 3.8-10 .8 normal Not Available [facility] [address], [place], [address], 08/29/2022 22:12:45 08/29/20 22 08/29/2022 CBC (INCL UDES DIFF/ PLT) red blood cell count 4.13 hilario on/uL 3.80-5 .10 normal Not Available [facility] [address], [place], [address], 08/29/2022 22:12:45 08/29/20 22 08/29/2022 CBC (INCL UDES DIFF/ PLT) hemoglobin 12.9 g/dL 11.7-1 5.5 normal Not Available [facility] [address], [place], [address], 08/29/2022 22:12:45 08/29/20 22 08/29/2022 CBC (INCL UDES DIFF/ PLT) hematocrit 38.3 % 35.0-4 5.0 normal Not Available [facility] [address], [place], [address], 08/29/2022 22:12:45 08/29/20 22 08/29/2022 CBC (INCL UDES DIFF/ PLT) MCV 92.7 fL 80.0-1 00.0 normal Not Available [facility] [address], [place], [address], 08/29/2022 22:12:45 08/29/20 22 08/29/2022 CBC (INCL UDES DIFF/ PLT) MCH 31.2 pg 27.0-3 3.0 normal Not Available [facility] [address], [place], [address], 08/29/2022 22:12:45 08/29/20 22 08/29/2022 CBC (INCL UDES DIFF/ PLT) MCHC 33.7 g/dL 32.0-3 6.0 normal Not Available [facility] [place] [facility] [address], [place], [address], 08/29/2022 22:12:45 08/29/20 22 08/29/2022 CBC (INCL UDES DIFF/ PLT) RDW 12.5 % 11.0-1 5.0 normal Not Available [facility] [address], [place], [address], 08/29/2022 22:12:45 08/29/20 22 08/29/2022 CBC (INCL UDES DIFF/ PLT) platelet count 191 thous and/u L 140-40 0 normal Not Available [facility] [place] [facility] [address], [place], [address], 08/29/2022 22:12:45 08/29/20 22 08/29/2022 CBC (INCL UDES DIFF/ PLT) MPV 10.6 fL 7.5-12 .5 normal Not Available [facility] [address], [place], [address], 08/29/2022 22:12:45 08/29/20 22 08/29/2022 CBC (INCL UDES DIFF/ PLT) absolute neutrophils 1919 cells /uL 1500-7 800 normal Not Available [facility] [address], [place], [address], 08/29/2022 22:12:45 08/29/20 22 08/29/2022 CBC (INCL UDES DIFF/ PLT) absolute lymphocytes 1421 cells /uL 850-39 00 normal Not Available [facility] [place] [facility] [address], [place], [address], 08/29/2022 22:12:45 08/29/20 22 08/29/2022 CBC (INCL UDES DIFF/ PLT) absolute monocytes 319 cells /uL 200-95 0 normal Not Available [facility] [place] [facility] [address], [place], [address], 08/29/2022 22:12:45 08/29/20 22 08/29/2022 CBC (INCL UDES DIFF/ PLT) absolute eosinophils 99 cells /uL 15-500 normal Not Available [facility] [place] [facility] [address], [place], [address], 08/29/2022 22:12:45 08/29/20 22 08/29/2022 CBC (INCL UDES DIFF/ PLT) absolute basophils 42 cells /uL 0-200 normal Not Available [facility] [place] [facility] [address], [place], [address], 08/29/2022 22:12:45 08/29/20 22 08/29/2022 CBC (INCL UDES DIFF/ PLT) neutrophils 50.5 % normal Not Available [facility] [place] [facility] [address], [place], [address], 08/29/2022 22:12:45 08/29/20 22 08/29/2022 CBC (INCL UDES DIFF/ PLT) lymphocytes 37.4 % normal Not Available [facility] [place] [facility] [address], [place], [address], 08/29/2022 22:12:45 08/29/20 22 08/29/2022 CBC (INCL UDES DIFF/ PLT) monocytes 8.4 % normal Not Available [facility] [place] [facility] [address], [place], [address], 08/29/2022 22:12:45 08/29/20 22 08/29/2022 CBC (INCL UDES DIFF/ PLT) eosinophils 2.6 % normal Not Available [facility] [address], [place], [address], 08/29/2022 22:12:45 08/29/20 22 08/29/2022 CBC (INCL UDES DIFF/ PLT) basophils 1.1 % normal Not Available [facility] [address], [place], [address], 08/29/2022 22:12:45 09/02/20 22 09/02/2022 hemog lobin A1C, finge rstic k Result: 5.4 Not Available [employer] [address] [facility] [address], [place], [address], 09/02/2022 15:31:39 09/03/20 23 09/03/2023 hemog lobin A1C, finge rstic k Result: 5.7 Not Available [employer] [address] [facility] [address], [place], [address], 09/03/2023 15:46:19 12/17/19 24 12/18/2023 LIPID PANEL WITH REFLE X TO DIREC T LDL cholesterol, total 214 mg/dL <200 high Not Available [facility] [address], [place], [address], 12/18/2023 03:46:04 12/17/19 24 12/18/2023 LIPID PANEL WITH REFLE X TO DIREC T LDL HDL cholesterol 70 mg/dL > or = 50 normal Not Available [facility] [address], [place], [address], 12/18/2023 03:46:04 12/17/19 24 12/18/2023 LIPID PANEL WITH REFLE X TO DIREC T LDL triglyceride s 180 mg/dL <150 high Not Available [facility] [address], [address], 12/18/2023 03:46:04 12/17/19 24 12/18/2023 LIPID PANEL WITH REFLE X TO DIREC T LDL LDL-choleste rol 114 mg/dL _(gaurang c) high Refer ence range : <100 Rochelle able range <100 mg/dL for prima ry preve ntion ; <70 mg/dL for patie nts with CHD or diabe tic patie nts with > or = 2 CHD risk facto rs. LDL-C is now calcu lated using the Annabelle n-Hop kins calcu marjorie n, which is a valid ated novel metho d provi gio katherine r accur acy than the Fried eliana equat ion in the estim ation of LDL-C . Annabelle sharma SS et al. TRISTAN. 2013; 310(1 9): 2061- 2068 (http ://ed ucati on.NanoVelos calinCNZZ. com/f aq/FA Q164) Not Available [facility] [place] [facility] [address], [address], 12/18/2023 03:46:04 12/17/19 24 12/18/2023 LIPID PANEL WITH REFLE X TO DIREC T LDL chol/HDLC ratio 3.1 (calc ) <5.0 normal Not Available [facility] [place] [facility] [address], [address], 12/18/2023 03:46:04 12/17/19 24 12/18/2023 LIPID PANEL WITH REFLE X TO DIREC T LDL non HDL cholesterol 144 mg/dL _(gaurang c) <130 high For patie nts with diabe shabbir plus 1 major ASCVD risk facto r, treat ing to a non-H DL-C goal of <100 mg/dL (LDL- C of <70 mg/dL ) is consi dered a thera peuti c optio n. Not Available [facility] [address], [place], [address], 12/18/2023 03:46:04 12/17/19 24 12/18/2023 COMPR EHENS BELINDA METAB OLIC PANEL glucose 131 mg/dL 65-99 high Fasti ng refer ence inter rick For someo ne witho ut known diabe shabbir, a gluco se value >125 mg/dL indic ates that they may have diabe shabbir and this shoul d be confi rmed with a follo w-up test. Not Available [facility] [address], [place], [address], 12/18/2023 03:46:05 12/17/19 24 12/18/2023 COMPR EHENS BELINDA METAB OLIC PANEL urea nitrogen (BUN) 20 mg/dL 7-25 normal Not Available [facility] [address], [place], [address], 12/18/2023 03:46:05 12/17/19 24 12/18/2023 COMPR EHENS BELINDA METAB OLIC PANEL creatinine 0.66 mg/dL 0.60-1 .00 normal Not Available [employer] [facility] [address], [place], [address], 12/18/2023 03:46:05 12/17/19 24 12/18/2023 COMPR EHENS BELINDA METAB OLIC PANEL eGFR 94 mL/mi n/1.7 3m2 > or = 60 normal Not Available [facility] [address] [address], [place], [address], 12/18/2023 03:46:05 12/17/19 24 12/18/2023 COMPR EHENS BELINDA METAB OLIC PANEL BUN/creatini ne ratio SEE NOTE: (calc ) 6-22 Not Repor juliet: BUN and Creat inine are withi n refer ence range . Not Available [facility] [place] [facility] [address], [place], [address], 12/18/2023 03:46:05 12/17/19 24 12/18/2023 COMPR EHENS BELINDA METAB OLIC PANEL sodium 140 mmol/ L 135-14 6 normal Not Available [facility] [address], [place], [address], 12/18/2023 03:46:05 12/17/19 24 12/18/2023 COMPR EHENS BELINDA METAB OLIC PANEL potassium 4.5 mmol/ L 3.5-5. 3 normal Not Available [facility] [address], [place], [address], 12/18/2023 03:46:05 12/17/19 24 12/18/2023 COMPR EHENS BELINDA METAB OLIC PANEL chloride 102 mmol/ L 98-110 normal Not Available [facility] [address], [place], [address], 12/18/2023 03:46:05 12/17/19 24 12/18/2023 COMPR EHENS BELINDA METAB OLIC PANEL carbon dioxide 32 mmol/ L 20-32 normal Not Available [facility] [address], [place], [address], 12/18/2023 03:46:05 12/17/19 24 12/18/2023 COMPR EHENS BELINDA METAB OLIC PANEL calcium 9.6 mg/dL 8.6-10 .4 normal Not Available [facility] [address], [place], [address], 12/18/2023 03:46:05 12/17/19 24 12/18/2023 COMPR EHENS BELINDA METAB OLIC PANEL protein, total 6.5 g/dL 6.1-8. 1 normal Not Available [facility] [address], [place], [address], 12/18/2023 03:46:05 12/17/19 24 12/18/2023 COMPR EHENS BELINDA METAB OLIC PANEL albumin 4.4 g/dL 3.6-5. 1 normal Not Available [facility] [address], [place], [address], 12/18/2023 03:46:05 12/17/19 24 12/18/2023 COMPR EHENS BELINDA METAB OLIC PANEL globulin 2.1 g/dL_ (calc ) 1.9-3. 7 normal Not Available [facility] [address], [place], [address], 12/18/2023 03:46:05 12/17/19 24 12/18/2023 COMPR EHENS BELINDA METAB OLIC PANEL albumin/glob ulin ratio 2.1 (calc ) 1.0-2. 5 normal Not Available [facility] [address], [place], [address], 12/18/2023 03:46:05 12/17/19 24 12/18/2023 COMPR EHENS BELINDA METAB OLIC PANEL bilirubin, total 0.3 mg/dL 0.2-1. 2 normal Not Available [facility] [address], [place], [address], 12/18/2023 03:46:05 12/17/19 24 12/18/2023 COMPR EHENS BELINDA METAB OLIC PANEL alkaline phosphatase 41 U/L 37-153 normal Not Available [facility] [address], [place], [address], 12/18/2023 03:46:05 12/17/19 24 12/18/2023 COMPR EHENS BELINDA METAB OLIC PANEL AST 36 U/L 10-35 high Not Available [facility] [place] [facility] [address], [place], [address], 12/18/2023 03:46:05 12/17/19 24 12/18/2023 COMPR EHENS BELINDA METAB OLIC PANEL ALT 42 U/L 6-29 high Not Available [facility] [place] [facility] [address], [place], [address], 12/18/2023 03:46:05 12/17/19 24 12/18/2023 CBC (INCL UDES DIFF/ PLT) white blood cell count 4.2 thous and/u L 3.8-10 .8 normal Not Available [facility] [place] [facility] [address], [place], [address], 12/18/2023 03:46:06 12/17/19 24 12/18/2023 CBC (INCL UDES DIFF/ PLT) red blood cell count 4.14 hilario on/uL 3.80-5 .10 normal Not Available [facility] [place] [facility] [address], [place], [address], 12/18/2023 03:46:06 12/17/19 24 12/18/2023 CBC (INCL UDES DIFF/ PLT) hemoglobin 13.1 g/dL 11.7-1 5.5 normal Not Available [facility] [place] [facility] [address], [place], [address], 12/18/2023 03:46:06 12/17/19 24 12/18/2023 CBC (INCL UDES DIFF/ PLT) hematocrit 39.0 % 35.0-4 5.0 normal Not Available [facility] [place] [facility] [address], [place], [address], 12/18/2023 03:46:06 12/17/19 24 12/18/2023 CBC (INCL UDES DIFF/ PLT) MCV 94.2 fL 80.0-1 00.0 normal Not Available [facility] [place] [facility] [address], [place], [address], 12/18/2023 03:46:06 12/17/19 24 12/18/2023 CBC (INCL UDES DIFF/ PLT) MCH 31.6 pg 27.0-3 3.0 normal Not Available [facility] [place] [facility] [address], [place], [address], 12/18/2023 03:46:06 12/17/19 24 12/18/2023 CBC (INCL UDES DIFF/ PLT) MCHC 33.6 g/dL 32.0-3 6.0 normal Not Available [facility] [place] [facility] [address], [place], [address], 12/18/2023 03:46:06 12/17/19 24 12/18/2023 CBC (INCL UDES DIFF/ PLT) RDW 13.0 % 11.0-1 5.0 normal Not Available [facility] [place] [facility] [address], [place], [address], 12/18/2023 03:46:06 12/17/19 24 12/18/2023 CBC (INCL UDES DIFF/ PLT) platelet count 203 thous and/u L 140-40 0 normal Not Available [facility] [place] [facility] [address], [place], [address], 12/18/2023 03:46:06 12/17/19 24 12/18/2023 CBC (INCL UDES DIFF/ PLT) MPV 10.2 fL 7.5-12 .5 normal Not Available [facility] [place] [facility] [address], [place], [address], 12/18/2023 03:46:06 12/17/19 24 12/18/2023 CBC (INCL UDES DIFF/ PLT) absolute neutrophils 2272 cells /uL 1500-7 800 normal Not Available [facility] [place] [facility] [address], [place], [address], 12/18/2023 03:46:06 12/17/19 24 12/18/2023 CBC (INCL UDES DIFF/ PLT) absolute lymphocytes 1420 cells /uL 850-39 00 normal Not Available [facility] [place] [address], [place], [address], 12/18/2023 03:46:06 12/17/19 24 12/18/2023 CBC (INCL UDES DIFF/ PLT) absolute monocytes 378 cells /uL 200-95 0 normal Not Available [facility] [place] [facility] [address], [place], [address], 12/18/2023 03:46:06 12/17/19 24 12/18/2023 CBC (INCL UDES DIFF/ PLT) absolute eosinophils 101 cells /uL 15-500 normal Not Available [facility] [place] [address], [place], [address], 12/18/2023 03:46:06 12/17/19 24 12/18/2023 CBC (INCL UDES DIFF/ PLT) absolute basophils 29 cells /uL 0-200 normal Not Available [facility] [place] [facility] [address], [place], [address], 12/18/2023 03:46:06 12/17/19 24 12/18/2023 CBC (INCL UDES DIFF/ PLT) neutrophils 54.1 % normal Not Available [facility] [place] [facility] [address], [place], [address], 12/18/2023 03:46:06 12/17/19 24 12/18/2023 CBC (INCL UDES DIFF/ PLT) lymphocytes 33.8 % normal Not Available [facility] [place] [facility] [address], [place], [address], 12/18/2023 03:46:06 12/17/19 24 12/18/2023 CBC (INCL UDES DIFF/ PLT) monocytes 9.0 % normal Not Available [facility] [place] [facility] [address], [place], [address], 12/18/2023 03:46:06 12/17/19 24 12/18/2023 CBC (INCL UDES DIFF/ PLT) eosinophils 2.4 % normal Not Available [facility] [address], [place], [address], 12/18/2023 03:46:06 12/17/19 24 12/18/2023 CBC (INCL UDES DIFF/ PLT) basophils 0.7 % normal Not Available [facility] [place] [facility] [address], [place], [address], 12/18/2023 03:46:06 12/17/19 24 12/18/2023 HEPAT ITIS C AB W/REF L TO HCV RNA, QN, PCR hepatitis C antibody NON-RE ACTIVE non-re active normal HCV antib ranjit was non-r eacti ve. There is no labor atory evide nce of HCV infec tion. In most cases , no furth er actio n is requi red. Howev er, if recen t HCV expos ure is suspe cted, a test for HCV RNA (test code 65844 ) is sugge sted. For addit ional infor mary n pleas e refer to http: //[facility] hargroveque stdia gnost ics.c om/fa q/FAQ 22v1 (This link is being provi ded for infor matabraham nal/ educa saqib l purpo ses only. ) Not Available [facility] [place] [facility] [address], [place], [address], 12/18/2023 03:46:06 03/03/20 24 03/03/2024 hemog lobin A1C, finge rstic k Result: 5.6 Not Available [facility] [address] [facility] [address], [place], [address], 03/03/2024 15:21:16 09/07/2009/07/2024 LIPID PANEL WITH REFLE X TO DIREC T LDL cholesterol, total 237 mg/dL <200 high Not Available [facility] [address] [place], [address], 09/07/2024 22:48:09 09/07/2009/07/2024 LIPID PANEL WITH REFLE X TO DIREC T LDL HDL cholesterol 61 mg/dL > or = 50 normal Not Available [facility] [address], [place], [address], 09/07/2024 22:48:09 09/07/20 24 09/07/2024 LIPID PANEL WITH REFLE X TO DIREC T LDL triglyceride s 188 mg/dL <150 high Not Available [facility] [address], [place], [address], 09/07/2024 22:48:09 09/07/2009/07/2024 LIPID PANEL WITH REFLE X TO DIREC T LDL LDL-choleste rol 144 mg/dL _(gaurang c) high Refer ence range : <100 Rochelle able range <100 mg/dL for prima ry preve ntion ; <70 mg/dL for patie nts with CHD or diabe tic patie nts with > or = 2 CHD risk facto rs. LDL-C is now calcu lated using the Annabelle n-Hop kins calcu latabraham n, which is a valid ated novel metho d yonas powers katherine r accur acy than the Fried eliana equat ion in the estim ation of LDL-C . Annabelle sharma SS et al. TRISTAN. 2013; 310(1 9): 2061- 2068 (http ://ed ucati on.[employer]. com/f aq/FA Q164) Not Available [facility] [place] [facility] [address], [place], [address], 09/07/2024 22:48:09 09/07/20 24 09/07/2024 LIPID PANEL WITH REFLE X TO DIREC T LDL chol/HDLC ratio 3.9 (calc ) <5.0 normal Not Available [facility] [place] [facility] [address], [place], [address], 09/07/2024 22:48:09 09/07/20 24 09/07/2024 LIPID PANEL WITH REFLE X TO DIREC T LDL non HDL cholesterol 176 mg/dL _(gaurang c) <130 high For patie nts with diabe shabbir plus 1 major ASCVD risk facto r, treat ing to a non-H DL-C goal of <100 mg/dL (LDL- C of <70 mg/dL ) is consi dered a thera peuti c optio n. Not Available [facility] [place] [facility] [address], [place], [address], 09/07/2024 22:48:09 09/07/20 24 09/07/2024 COMP METAB OLIC PANEL W/ADJ CALCI UM, PLASM A glucose 116 mg/dL 65-99 high Fasti ng refer ence inter rick For someo ne witho ut known diabe shabbir, a gluco se value betwe en 100 and 125 mg/dL is consi stent with predi abete s and shoul d be confi rmed with a follo w-up test. Not Available [facility] [place] [facility] [address], [place], [address], 09/07/2024 22:48:09 09/07/20 24 09/07/2024 COMP METAB OLIC PANEL W/ADJ CALCI UM, PLASM A urea nitrogen (BUN) 19 mg/dL 7-25 normal Not Available [facility] [address], [place], [address], 09/07/2024 22:48:09 09/07/20 24 09/07/2024 COMP METAB OLIC PANEL W/ADJ CALCI UM, PLASM A creatinine 0.62 mg/dL 0.60-1 .00 normal Not Available [facility] [address], [place], [address], 09/07/2024 22:48:09 09/07/2009/07/2024 COMP METAB OLIC PANEL W/ADJ CALCI UM, PLASM A eGFR 95 mL/mi n/1.7 3m2 > or = 60 normal Not Available [facility] [address], [place], [address], 09/07/2024 22:48:09 09/07/20 24 09/07/2024 COMP METAB OLIC PANEL W/ADJ CALCI UM, PLASM A BUN/creatini ne ratio SEE NOTE: (calc ) 6-22 Not Repor juliet: BUN and Creat inine are withi n refer ence range . Not Available [facility] [address], [place], [address], 09/07/2024 22:48:09 09/07/20 24 09/07/2024 COMP METAB OLIC PANEL W/ADJ CALCI UM, PLASM A sodium 140 mmol/ L 135-14 6 normal Not Available [facility] [address], [address], 09/07/2024 22:48:09 09/07/20 24 09/07/2024 COMP METAB OLIC PANEL W/ADJ CALCI UM, PLASM A potassium 4.6 mmol/ L 3.4-4. 8 normal Not Available [facility] [address], [address], 09/07/2024 22:48:09 09/07/20 24 09/07/2024 COMP METAB OLIC PANEL W/ADJ CALCI UM, PLASM A chloride 102 mmol/ L 98-110 normal Not Available [facility] [address], [place], [address], 09/07/2024 22:48:09 09/07/20 24 09/07/2024 COMP METAB OLIC PANEL W/ADJ CALCI UM, PLASM A carbon dioxide 28 mmol/ L 20-32 normal Not Available [facility] [address], [place], [address], 09/07/2024 22:48:09 09/07/20 24 09/07/2024 COMP METAB OLIC PANEL W/ADJ CALCI UM, PLASM A calcium 9.6 mg/dL 8.6-10 .4 normal Not Available [facility] [address], [place], [address], 09/07/2024 22:48:09 09/07/20 24 09/07/2024 COMP METAB OLIC PANEL W/ADJ CALCI UM, PLASM A calcium (adjusted for albumin) 9.7 mg/dL _(gaurang c) 8.6-10 .2 normal Not Available [facility] [address], [place], [address], 09/07/2024 22:48:09 09/07/20 24 09/07/2024 COMP METAB OLIC PANEL W/ADJ CALCI UM, PLASM A protein, total 6.7 g/dL 6.4-8. 4 normal Not Available [facility] [address], [place], [address], 09/07/2024 22:48:09 09/07/20 24 09/07/2024 COMP METAB OLIC PANEL W/ADJ CALCI UM, PLASM A albumin 4.3 g/dL 3.6-5. 1 normal Not Available [facility] [address], [address], 09/07/2024 22:48:09 09/07/20 24 09/07/2024 COMP METAB OLIC PANEL W/ADJ CALCI UM, PLASM A globulin 2.4 g/dL_ (calc ) 2.2-4. 0 normal Not Available [facility] [address], [address], 09/07/2024 22:48:09 09/07/20 24 09/07/2024 COMP METAB OLIC PANEL W/ADJ CALCI UM, PLASM A albumin/glob ulin ratio 1.8 (calc ) 0.9-2. 3 normal Not Available [facility] [address], [address], 09/07/2024 22:48:09 09/07/20 24 09/07/2024 COMP METAB OLIC PANEL W/ADJ CALCI UM, PLASM A bilirubin, total 0.2 mg/dL 0.2-1. 2 normal Not Available [facility] [address], [place], [address], 09/07/2024 22:48:09 09/07/20 24 09/07/2024 COMP METAB OLIC PANEL W/ADJ CALCI UM, PLASM A alkaline phosphatase 48 U/L 37-153 normal Not Available [facility] [address], [address], 09/07/2024 22:48:09 09/07/20 24 09/07/2024 COMP METAB OLIC PANEL W/ADJ CALCI UM, PLASM A AST 48 U/L 10-35 high Not Available [facility] [address], [address], 09/07/2024 22:48:09 09/07/20 24 09/07/2024 COMP METAB OLIC PANEL W/ADJ CALCI UM, PLASM A ALT 46 U/L 6-29 high Not Available [facility] [place] [facility] [address], [place], [address], 09/07/2024 22:48:09 09/07/20 24 09/07/2024 CBC (INCL UDES DIFF/ PLT) white blood cell count 4.4 thous and/u L 3.8-10 .8 normal Not Available [facility] [place] [facility] [address], [place], [address], 09/07/2024 22:48:10 09/07/20 24 09/07/2024 CBC (INCL UDES DIFF/ PLT) red blood cell count 4.16 hilario on/uL 3.80-5 .10 normal Not Available [facility] [place] [facility] [address], [place], [address], 09/07/2024 22:48:10 09/07/20 24 09/07/2024 CBC (INCL UDES DIFF/ PLT) hemoglobin 13.4 g/dL 11.7-1 5.5 normal Not Available [facility] [place] [facility] [address], [place], [address], 09/07/2024 22:48:10 09/07/20 24 09/07/2024 CBC (INCL UDES DIFF/ PLT) hematocrit 39.8 % 35.0-4 5.0 normal Not Available [facility] [place] [facility] [address], [place], [address], 09/07/2024 22:48:10 09/07/20 24 09/07/2024 CBC (INCL UDES DIFF/ PLT) MCV 95.7 fL 80.0-1 00.0 normal Not Available [facility] [place] [facility] [address], [place], [address], 09/07/2024 22:48:10 09/07/20 24 09/07/2024 CBC (INCL UDES DIFF/ PLT) MCH 32.2 pg 27.0-3 3.0 normal Not Available [facility] [address] [place], [place], [address], 09/07/2024 22:48:10 09/07/20 24 09/07/2024 CBC (INCL UDES DIFF/ PLT) MCHC 33.7 g/dL 32.0-3 6.0 normal For adult s, a sligh t decre ase in the calcu lated MCHC value (in the range of 30 to 32 g/dL) is most likel y not clini constanza signi fican t; jackelyn er, it shoul d be inter prete d with cauti on in corre latio n with other red cell aldo eters and the patie nt's clini gaurang condi tion. Not Available [facility] [address] [place], [place], [address], 09/07/2024 22:48:10 09/07/20 24 09/07/2024 CBC (INCL UDES DIFF/ PLT) RDW 12.9 % 11.0-1 5.0 normal Not Available [facility] [address], [place], [address], 09/07/2024 22:48:10 09/07/20 24 09/07/2024 CBC (INCL UDES DIFF/ PLT) platelet count 184 thous and/u L 140-40 0 normal Not Available [facility] [address], [place], [address], 09/07/2024 22:48:10 09/07/20 24 09/07/2024 CBC (INCL UDES DIFF/ PLT) MPV 10.1 fL 7.5-12 .5 normal Not Available [facility] [place] [facility] [address], [place], [address], 09/07/2024 22:48:10 09/07/2009/07/2024 CBC (INCL UDES DIFF/ PLT) absolute neutrophils 2636 cells /uL 1500-7 800 normal Not Available [facility] [place] [facility] [address], [place], [address], 09/07/2024 22:48:10 09/07/20 24 09/07/2024 CBC (INCL UDES DIFF/ PLT) absolute lymphocytes 1267 cells /uL 850-39 00 normal Not Available [facility] [place] [facility] [address], [place], [address], 09/07/2024 22:48:10 09/07/20 24 09/07/2024 CBC (INCL UDES DIFF/ PLT) absolute monocytes 396 cells /uL 200-95 0 normal Not Available [facility] [place] [facility] [address], [place], [address], 09/07/2024 22:48:10 09/07/20 24 09/07/2024 CBC (INCL UDES DIFF/ PLT) absolute eosinophils 70 cells /uL 15-500 normal Not Available [facility] [place] [facility] [address], [place], [address], 09/07/2024 22:48:10 09/07/20 24 09/07/2024 CBC (INCL UDES DIFF/ PLT) absolute basophils 31 cells /uL 0-200 normal Not Available [facility] [place] [facility] [address], [place], [address], 09/07/2024 22:48:10 09/07/20 24 09/07/2024 CBC (INCL UDES DIFF/ PLT) neutrophils 59.9 % normal Not Available [facility] [place] [facility] [address], [place], [address], 09/07/2024 22:48:10 09/07/2009/07/2024 CBC (INCL UDES DIFF/ PLT) lymphocytes 28.8 % normal Not Available [facility] [place] [facility] [address], [place], [address], 09/07/2024 22:48:10 09/07/2009/07/2024 CBC (INCL UDES DIFF/ PLT) monocytes 9.0 % normal Not Available [facility] [place] [facility] [address], [place], [address], 09/07/2024 22:48:10 09/07/2009/07/2024 CBC (INCL UDES DIFF/ PLT) eosinophils 1.6 % normal Not Available [facility] [place] [facility] [address], [place], [address], 09/07/2024 22:48:10 09/07/2009/07/2024 CBC (INCL UDES DIFF/ PLT) basophils 0.7 % normal Not Available [facility] [place] [facility] [address], [place], [address], 09/07/2024 22:48:10 09/07/2009/07/2024 TSH W/REF BRI TO FT4 TSH w/reflex to FT4 3.23 mIU/L 0.40-4 .50 normal Not Available [facility] [place] [facility] [address], [place], [address], 09/07/2024 22:48:10 09/02/20 elect rocar diogr am No observ ation record ed. [email or web address] [address], [place], [address], 09/02/2022 15:16:56 09/02/20 elect rocar diogr am No observ ation record ed. BARCODE [facility] [address] [facility], [place], [address], 09/02/2022 16:28:03 07/22/20 24 07/01/2024 MAMMO , diagn ostic , tomos ynthe sis, bilat eral No observ ation record ed. [email or web address] [facility] [address], [place], [address], 09/29/2024 14:30:35 Result Notes None recorded. Problems Name Problem SNOMED Code Status Onset Date Resolution Date Notes Provider Name and Address Organization Details Recorded Time Hyperlipidemia 67826697 Active 2021 Jonah Linares MD [address], [place], [address], [place] [facility] 2 15:45:27 Obstructive sleep apnea syndrome 77353528 Active 2021 Jonah Linares MD [address] [facility], [place], [address], [place] - [facility] 2 15:46:40 Migraine 04425800 Active 2021 Jonah Linares MD [address] [facility], [place], [address], [place] - [facility] 2 15:47:38 Major depressive disorder 404773747 Active 2021 Jonah Linares MD [address] [facility], [place], [address], [place] - [facility] 2 15:47:51 Eczema 02313870 Active 2021 Jonah Linares MD [address] [facility], [place], [address], [place] - [facility] 2 15:58:11 History of calculus of kidney 409682240 Active 2021 Jonah Linares MD [address] [facility], [place], [address], [place] - [facility] 15:08:56 Problem Notes None recorded. Procedures Surgical History None recorded. Imaging Results Imaging Date Name Status LastModified by Organization Details LastModified Time 09/02/2022 electrocardiogram [email or web address] [address] [facility] [address], [place], [address], 09/02/2022 15:16:56 09/02/2022 electrocardiogram completed [facility] [address] [facility] [address], [place], [address], 09/02/2022 16:28:03 07/01/2024 MAMMO, diagnostic, tomosynthesis, bilateral completed [email or web address] [facility] [address], [place], [address], 09/29/2024 14:30:35 Procedure Notes None recorded. Medical Equipment None Reported. Allergies No known drug allergies Medications Name Sig Start Date Stop Date Status Note LastModified by Organization Details LastModified Time amoxicillin 500 mg capsule TAKE 1 CAPSULE BY MOUTH EVERY 8 HOURS UNTIL FINISHED 09/13 completed Not Available Not Available Not Available prednisone 10 mg tablet TAKE 1 TABLET BY MOUTH EVERY DAY 02/06 completed Not Available Not Available Not Available doxycycline hyclate 100 mg capsule TAKE 1 CAPSULE BY MOUTH TWICE A DAY UNTIL FINISHED 09/29 completed Not Available Not Available Not Available azithromyci n 250 mg tablet TAKE 2 TABLETS BY MOUTH TODAY, THEN TAKE 1 TABLET DAILY FOR 4 DAYS DIRECTED 03/03 completed Not Available Not Available Not Available pravastatin 40 mg tablet TAKE 1 TABLET BY MOUTH EVERY DAY 06/03 completed Not Available Not Available Not Available ibuprofen 800 mg tablet TAKE 1 TABLET BY MOUTH THREE TIMES A DAY FOR SWELLING 09/03 completed Not Available Not Available Not Available hydrocodone 5 mg-acetamin ophen 325 mg tablet TAKE 1 TABLET BY MOUTH EVERY SIX HOURS NEEDED FOR PAIN 09/02 completed Not Available Not Available Not Available triazolam 0.125 mg tablet TAKE 2 TABLET BY MOUTH DIRECTED 90 MINUTES PRIOR TO PROCEDURE 09/02 completed Not Available Not Available Not Available pimecrolimu s 1 % topical cream APPLY TO AFFECTED AREA EVERY DAY NEEDED ONLY active Not Available Not Available No t Available tramadol 50 mg tablet TAKE 1 TABLET BY MOUTH EVERY 8 HOURS FOR MODERATE PAIN 02/06 completed Not Available Not Available Not Available butalbital- acetaminoph en-caffeine 50 mg-325 mg-40 mg tablet active Not Available Not Available Not Available oxycodone-a cetaminophe n 5 mg-325 mg tablet TAKE 1 TABLET BY MOUTH EVERY 6 HOURS NEEDED FOR PAIN 09/03 completed Not Available Not Available Not Available pravastatin 80 mg tablet TAKE 1 TABLET BY MOUTH EVERY DAY 2023 active Not Available Not Available Not Avai lable tamsulosin 0.4 mg capsule TAKE 1 CAPSULE BY MOUTH AT BEDTIME FOR 7 DAYS FOR KIDNEY STONE 02/06 completed Not Available Not Available Not Available potassium citrate ER 10 mEq (1,080 mg) tablet,exte nded release TAKE 1 TABLET ORALLY 2 TIMES A DAY FOR 90 DAYS active Not Available Not Available No t Available polymyxin B sulfate 10,000 unit-trimet hoprim 1 mg/mL eye drops INSTILL 2 DROPS IN THE RIGHT EYE EVERY 4 HOURS FOR 5 DAYS 09/02 completed Not Available Not Available Not Available triamcinolo ne acetonide 0.025 % topical ointment APPLY TO AFFECTED AREA TWICE A DAY 09/02 completed Not Available Not Available Not Available oxybutynin chloride ER 5 mg tablet,exte nded release 24 hr TAKE 1 TABLET BY MOUTH EVERY 8 HOURS NEEDED FOR BLADDER SPASMS 02/06 completed Not Available Not Available Not Available pyridoxine (vitamin B6) 50 mg tablet TAKE 1 TABLET BY MOUTH EVERY DAY active Not Available Not Available No t Available cefuroxime axetil 500 mg tablet TAKE 1 TABLET BY MOUTH TWICE A DAY 02/06 completed Not Available Not Available Not Available ondansetron 4 mg disintegrat ing tablet TAKE 1 TAB BY MOUTH EVERY 8 -12 HOURS NEEDED FOR NAUSEA AND VOMITING 02/06 completed Not Available Not Available Not Available fluoxetine 20 mg capsule TAKE 1 CAPSULE BY MOUTH EVERY DAY 2024 active Not Available Not Available Not Avai lable ezetimibe 10 mg tablet TAKE 1 TABLET BY MOUTH EVERY DAY active Not Available Not Available No t Available solifenacin 5 mg tablet TAKE 1 TABLET BY MOUTH EVERYDAY AT BEDTIME 02/06 completed Not Available Not Available Not Available solifenacin 10 mg tablet TAKE 1 TABLET BY MOUTH EVERY DAY active Not Available Not Available No t Available chlorhexidi ne gluconate 0.12 % mouthwash RINSE WITH 15 ML BY MOUTH TWICE A DAY GENTLY RINSE. SPIT OUT, DO NOT SWALLOW. 09/03 completed Not Available Not Available Not Available butalbital- acetaminoph en-caffeine 50 mg-300 mg-40 mg capsule TAKE 1 CAPSULE BY MOUTH EVERY DAY NEEDED active Not Available Not Available No t Available Paxlovid 300 mg (150 mg x 2)-100 mg tablets in a dose pack TAKE 3 TABLETS BY MOUTH TWICE A DAY FOR 5 DAYS 09/13 completed Not Available Not Available Not Available Vitals Date Recorded Body height Body mass index (BMI) Body weight Body temperature Oxygen saturation Oxygen saturation in Arterial blood by Pulse oximetry Heart rate Systolic blood pressure Diastolic blood pressure Provider Name and Address Organization Details Last Updated DateTime 2 160.02 cm 28.3 kg/m2 33065.7 8 g 97.6 [degF] 98 % 98 % 65 /min 120 mm[Hg] 74 mm[Hg] shelllj wu [facility] 2 10:08:39 Date Recorded Body height Body mass index (BMI) Body weight Heart rate Oxygen saturation Oxygen saturation in Arterial blood by Pulse oximetry Systolic blood pressure Diastolic blood pressure Provider Name and Address Organization Details Last Updated DateTime 3 160.02 cm 30.5 kg/m2 64475.8 9 g 71 /min 95 % 95 % 130 mm[Hg] 80 mm[Hg] Julianne Pino [facility] 3 15:29:11 Date Recorded Body height Heart rate Systolic blood pressure Diastolic blood pressure Provider Name and Address Organization Details Last Updated DateTime 03/03/2024 160.02 cm 75 /min 128 mm[Hg] 78 mm[Hg] Kalie Cabrera [facility] 03/03/2024 15:17:40 Date Recorded Body height Body mass index (BMI) Body weight Heart rate Oxygen saturation Oxygen saturation in Arterial blood by Pulse oximetry Respiratory rate Systolic blood pressure Diastolic blood pressure Provider Name and Address Organization Details Last Updated DateTime 4 160.02 cm 29.6 kg/m2 94564.9 3 g 70 /min 96 % 96 % 18 /min 131 mm[Hg] 75 mm[Hg] Elizabeth Cote [facility] 4 14:37:37 Social History Question Answer Notes LastModified by Organizat ion Details LastModified Time Tobacco Smoking Status Never Smoker Kalie Cabrera [facility] 02/06/2022 15:47:21 What Is Your Level Of Alcohol Consumption? Moderate Information not available 02/06/2022 Are You Currently Employed? 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 No Information not available 02/06/2022 Do You Or Have You Ever Used Any Other Forms Of Tobacco Or Nicotine? No Information not available 02/06/2022 Sex: Female Functional Status None recorded. Mental Status None recorded. Family History Relationship Description Onset Age of this Age Resolved Age Notes LastModified by Organization Details LastModified Time Father No current problems or disability Not available 02/06 15:46:42 Father Hypercholest erolemia [email or web address] Not available 2021 10:13:27 Mother No current problems or disability Not available 02/06 15:46:42 Medical History No medical history recorded. Gynecological HistoryNo gynecological history recorded. Obstetrics History GPAL:G 0 P 0 0 0 0 Immunizations Vaccine Type Date Status Note Provider Nam e and Address Organization Details Recorded Time Influenza, MDCK, quadrivalent, PF 3 completed Sayra Fisher [facility] 09/03/2023 16:16:34 COVID-19, mRNA, LNP-S, PF, 50 mcg/0.5 mL 3 completed Sayra Fisher [facility] 09/03/2023 16:16:35 Influenza, adjuvanted, trivalent, PF 4 completed Elicia Hills [facility] 09/29/2024 17:46:22 COVID-19, mRNA, LNP-S, PF, olivia-sucrose, 30 mcg/0.3 mL 4 completed Elicia Hills null, [facility] 09/29/2024 17:46:22 Pneumococcal conjugate PCV20, polysaccharide PDL188 conjugate, adjuvant, PF 2 completed shell manjarrezppa null, [facility] 09/03/2022 08:54:31 Influenza, MDCK, quadrivalent, PF 2 completed shell dieppa null, [facility] 09/03/2022 08:54:32 Past Encounters Encounter ID Performer Location Encounter Start Date Encounter Closed Date Diagnosis/Indication Diagnosis SNOMED-CT Code Diagnosis ICD10 Code Diagnosis Note [id number] Jonah Linares MD [address],[facility] [address] [place] [address] 02/06/2022 15:36:58 02/08/2022 11:22:59 Hyperlipidemia 91824622 E78.5 Recent CBC and CMP was normal at the hospital. Will check lipid panel and cont pravastati n for now. Major depr essive disorder 275285854 F32.9 Controlled on fluoxetine . Will Cont Obstructiv e sleep apnea syndrome 90501437 G47.33 F/u with pulm and use CPAP machine Migraine 45390612 G43.90 9 Fiorecet helps and will give prescripti on. D/w that this is a controlled substance and she understand s. [id number] Jonah Linares MD [address],[facility] [address] [place] [address] 03/04/2022 16:00:39 03/04/2022 16:22:22 Hyperlipidemia 16489460 E78.5 Most likely familial hyperlipid emia. Will double dose of pravastati n and pt will take 2 tabs till she finishes her bottles. Will check lipid panel and LFT in 3 months prior to next appt.D/w pt side effects and if she starts getting muscle aches then to go back to taking pravastati n 40mg and call me - I will send a prescripti on for zetia.If cholestero l still not under control then will add zetia followed by fibrates if needed. Pt agrees with plan. [id number] Jonah Linares MD [employer],[facility] [address] [place] [address] 06/03/2022 09:58:24 06/03/2022 10:21:38 Hyperlipidemia 52123147 E78.5 Cholestero l still elevated. Will add zetia and d/w pt side effects. Will repeat lipid panel, CBC and CMP in 2-3 months. If TG still elevated, will start vascepa, if LDL/TC elevated then will start Repatha. Pt agrees with plan. [id number] Jonah Linares MD [employer] [facility] [address] [facility] [address] [place] [address] 09/02/2022 14:43:31 09/03/2022 08:54:14 Adult health examination 277950945 Z00.00 Discussed healthy diet including avoiding sugars and simple carbs. Discussed that patient should attempt to substitute high calorie foods with low calorie foods and decrease food portion. Active or passive immunization 745315585 Z23 D/w patient risk and benefits of vaccinatio n. All questions answered. Patient {{agreed* did not agree}} to be vaccinated for {{influenz a Vaxneuva nce 15 Pneumov ax 23 Tdap Sh ingrix MMR Varivax P CV 20 and influenza# }} vaccine. VIS given to patient today. Depression screening 171 425227 Z13.31 Depression screening with PHQ-2 is negative. Hyperglycemia 25644889 R 73.9 Blood gluc was high and A1c checked which was normal. [id number] Jonah Linares MD [employer] [address],[facility] [address] [place] [address] 09/03/2023 15:20:30 09/03/2023 16:28:03 Adult health examination 842082607 Z00.00 Discussed healthy diet including avoiding sugars and simple carbs. Discussed that patient should attempt to substitute high calorie foods with low calorie foods and decrease food portion. Active or passive immunization 054709797 Z23 D/w patient risk and benefits of vaccinatio n. All questions answered. Patient {{agreed* did not agree}} to be vaccinated for {{influenz a Vaxneuva nce 15 Pneumov ax 23 Tdap Sh ingrix MMR Varivax i nfluenza and COVID#}} vaccine. VIS given to patient today. Depression screening 171 Z13.31 Depression screening with PHQ-9 is negative. Migraine 27929997 G43.90 9 Fiorecet helps and will give prescripti on. Will refill as last time I refilled was approx 1.5 years ago Major depr essive disorder 874818344 F32.9 Stable on fluoxetine . Will cont Hepatitis C screening 41 0052393 Z11.59 Check hep c screening Hyperglycemia 62418308 R 73.9 Blood gluc was high last year. a1c normal [id number] Jonah Lniares MD [employer] [address] [place] [address],[facility] [address] [place] [address] 03/03/2024 14:51:26 03/03/2024 15:31:09 Hyperglycemia 68498943 R73.9 Blood gluc was high last year. a1c normal Migraine 92256415 G43.90 9 fioricet helps and will give prescripti on. Will refill prescripti on. CTPMP reviewed Bilateral plantar fasciitis 4363758232 2164763 M72.2 D/w pt to do exercises at home. Hyperlipidemia 91490884 E78.5 Cont statin and zetia Adult heal th examination 834351932 Z00.00 Ordering labs prior to next physical [id number] Jonah Linares MD [employer] [address],[facility] [address] [place] [address] 09/29/2024 14:29:56 09/29/2024 15:14:56 Adult health examination 099162135 Z00.01 Discussed healthy diet including avoiding sugars and simple carbs. Discussed that patient should attempt to substitute high calorie foods with low calorie foods and decrease food portion. Active or passive immunization 971710282 Z23 D/w patient risk and benefits of vaccinatio n. All questions answered. Patient agreed to receive the vaccines listed below. VIS given to patient today. Depression screening 171 Z13.31 Depression screening with PHQ-{{9* 2 }} is {{negative * positive }}. Hyperlipidemia 38568831 E78.5 Cont statin and zetia Major depr essive disorder 594389046 F32.9 Stable on fluoxetine . Will cont Migraine 89343206 G43.90 9 fioricet helps and will give prescripti on. Will refill prescripti on. CTPMP reviewed Hyperglycemia 44300816 R 73.9 Discussed with patient about doing hemoglobin A1c given that sugar slightly high. Since sugar is not in diabetes range we deferred to do hemoglobin A1c as we would not start treatment anyway. Screening for malignant neoplasm of colon 903751028 Z12.11 D/w pt different screening tests, including that colonoscop y is gold standard. D/w pt risk vs benefits of various screening tests. Pt prefers {{cologuar d* colonos copy}} Health Concerns Section Related Observation LastModified by Organization Detai ls LastModified Time None Recorded Concern Status LastModified by Organization Details LastModified Time None Recorded Advance Directives Directive None Recorded Payers Encounter Date Sequence Insurance Name Policy Number Policy Garcia Covered Member ID Garcia Member ID Guarantor Name 06/03/2022 1 [place] [id number] H Yamilka Bombardier [id number] Yamilka Bombardier 09/02/2022 1 [place] [id number] H Yamilka Bombardier [id number] Yamilka Bombardier 09/03/2023 1 [place] [id number] H Yamilka Bombardier [id number] Yamilka Bombardier 03/03/2024 1 [place] [id number] H Yamilka Bombardier [id number] Yamilka Bombardier 09/29/2024 1 [place] [id number] H Yamilka Bombardier [id number] Yamilka Bombardier Notes Date Note Type Note Provider Name and Address Organization Details Recorded Time 2 text/html HyperlipidemiaReported bypatient.Duration:chronic Compliance:compliantNotes:Celso Linares MD [address] [facility] [address], [place], [address], [facility] 06/03/2022 10:23:15 2 text/html Annual WellnessReported bypatient.Diet and Nutrition:healthy diet Physical Activity:exercises on a regular basis (peloton) Additional Lifestyle Factors:no tobacco use; 1/2 bottle of wine at night dailyNotes:Follows with Dr. Maya for kidney stones.Last colonoscopy when she was 63. Has prescription for MammoHeadacheReported bypatient.Notes:last time she used fiorect was 3-4 weeks ago. Jonah Linares MD [address] [facility] [address], [place], [address], [employer] 09/02/2022 15:57:29 3 text/html Annual WellnessReported bypatient.Diet and Nutrition:high carbohydrate meals Physical Activity:exercises on a regular basis (pilates, peloton and treadmill); good physical condition Additional Lifestyle Factors:no tobacco use; drinks alcohol (mild-moderate)Notes:[facility] 63 Intermittent cough off and on. Has been a little stuffy. Home COVID test was negative. No fever. Jonah Linares MD [address] [facility] [address], [place], [address], [email or web address] 09/03/2023 16:06:55 4 text/html HeadacheReported bypatient.Notes:Using fiorecet and celebrex. Plantar fasciitis: still has pain in both legsWas getting some chest pains and saw Cards. W/u was normal per stress test. Jonah Linares MD [address] [facility] [address], [place], [address], [email or web address] 03/03/2024 15:37:38 4 text/html Annual WellnessReported bypatient.Diet and Nutrition:healthy diet Physical Activity:exercises on a regular basis; good physical condition Additional Lifestyle Factors:no tobacco use; drinks alcohol (mild-moderate)Notes:Mammo was done at [facility] Jonah Linares MD [address] [facility] [address], [place], [address], [place] [employer] 09/29/2024 15:15:59 OBGyn Episode No OBEpisode recorded.
--- OUTSIDE RECORDS SUMMARY | 2025-03-01 18:32 | XMS_ITS | Clinical Summary ---
Author Organization [facility] Address [address] [place] [address] Care Team Providers Care Supervisor Cytogenetic Laboratory Name Role Phone Unavailable Primary Care Provider Unavailabl e Encounters Date Type Department Care Team Description 12/02/2024 Orders Only [address] [place] [address] Adelita Suarez DO from Last 3 Months Social History Tobacco Use Types Packs/Day Years Used Date Smoking Tobacco: Never Assessed Comments Unknown Sex and Gender Information Value Date Recorded Sex Assigned at Not on file Legal Sex Female 6:52 PM EST Gender Identity Not on file Sexual Orientation Not on file Plan of Treatment Health Maintenance Due Date Last Done Comments Hepatitis C Virus Screening 1955 DTaP/Tdap/Td Vaccines (1 - Tdap) 1972 Pneumococcal Vaccines 50+ (1 of 1 - PCV) 2003 Zoster (Shingles) Vaccine (1 of 2) 2003 COVID-19 Vaccine ( - 2023-2 5 season) 2024 RSV Vaccine 60 years and old er and Patients (1 - 1-dose 75+ series) 2028 Hepatitis B Vaccines Aged Out No long er eligible based on patient's age to complete this topic Procedures Procedure Name Priority Date/Time Associated Diagnosis Comments THINPREP PAP(SOFTWARE RECRUITER) HPV SCR RFX HPV 16,18/45 Routine 12/02/2024 3:23 PM EST from Last 3 Months Results * ThinPrep Pap(Woods Superintendent) HPV Scr Rfx HPV 16,18/45 (12/02/2024 3:23 PM EST) Report Report [facility] Comment: Final Gynecological Cytology Report ThinPrep Pap Test, HPV Screen, Reflex HPV Genotype SPECIMEN ADEQUACY: SATISFACTORY FOR EVALUATION. INTERPRETATION: NEGATIVE FOR INTRAEPITHELIAL LESION OR MALIGNANCY. Atrophy Electronically Signed: ??Niraj Metcalf ??CT (ASCP) Electronically Signed: ??Michelle Harvey, [place](ASCP) CLINICAL INFORMATION: LMP: NG Clinical History: ??NG Biopsy Date: ??NG Specimen Source: ??Cervix, Endocervix Previous Pap Date: ??NG HPV RESULTS: HPV mRNA E6/E7 ?? [id number] ?? Approved: 12/03/24 Negative ? REF RANGE: Negative CPT Codes: 69075 ICD Codes: Z01.419 12/02/2024 3:23 PM EST 12/02/2024 10:42 PM EST us Adelita Suarez DO LAB AMB PATH/CYTO ORDERABLE S Final Result Performing Organization Address City/State/[facility] Co de Phone Number [facility] [address], [place] from Last 3 Months
--- OUTSIDE RECORDS SUMMARY | 2025-03-01 18:32 | XMS_ITS ---
Author Organization [facility] Address [address] [place] [address] Care Team Providers Care Panel Raiser Operator Name Role Phone NONE, NONE Primary Care Provider Unavailcaty Frost Jr, Shay Unavailable REASON FOR VISIT New pt no show Encounters Encounter Location Date Provider Diagnosis [facility] [address] [place] [address] 12/20/2024 Shay Frost Jr Plan Of Treatment No Information Progress Notes * JOCY ADAMSB:[birth year] (69 yo F)Acc No.[id number]:12/20/2024 Patient:?BRENDA ADAMSA :1955???Age:69 Y???Sex:Female Address:[place], [address] * true * Date:? Generated for Shawnee coffman/Dimitris/eTransmitting on:?03/01/2025 06:32 PM EDT
--- OUTSIDE RECORDS SUMMARY | 2025-03-01 18:32 | XMS_ITS | Encounter Summary ---
Author Organization [facility] Address [address] [place] [address] Care Team Providers Care Analytics Developer Name Role Phone Som Martinez MD Primary Care Provider [phone] Encounter Details Date Type Department Care Team (Late st Contact Info) Description 09/01/2024 3:33 PM EDT Hospital Encounter TH HISTORIC ENCOUNTERS EASTERN CONVERSION ONLY Ivonne Thompson MD [address] [place] [address] Social History Tobacco Use Types Packs/Day Years [...] CPAP with a nasal mask Score on [place] Sleepiness Scale is 7/24 No reported mask [...] , BUN , CREATININE , CL , [id number] , GLUCRANDOM , WBC , HEMATOCRIT , [...] prn Ivonne Thompson MD,MRCP,FCCP Pulmonary/Critical Care/Sleep Medicine [phone] documented in this encounter Plan of Treatment Not on file documented as of this encounter Visit Diagnoses Not on filedocumented in this encounter Care Teams Analytics Developer Relationship Specialty Start Date End Date Som Martinez MD [address] PCP - General Internal Medicine 07/13/19 documented as of this encounter
--- OUTSIDE RECORDS SUMMARY | 2025-03-01 18:32 | XMS_ITS ---
Author Organization [facility] Address [address] [place] [address] Care Team Providers Care Hospice Clinical Supervisor Name Role Phone NONE, NONE Primary Care Provider Shay Law Jr Unavailable [phone] REASON FOR VISIT Patient presents today for a screening colonoscopy Encounters Encounter Location Date Provider Diagnosis [facility] [address] [place] [address] 12/20/2024 Shay Frost Jr Plan Of Treatment No Information Progress Notes * BRENDA ADAMSYAHAIRAB:[birth year] (69 yo F)Acc No.[id number]:12/20/2024 Progress Notes Patient:?ROM ADAMS Provider:?Shay Frost MD :1955???Age:69 Y???Sex:Female D ate:12/20/2024 Address:[id number] Subjective: * Chief Complaints: * ???1. Patient presents today for a screening colonoscopy. * Medical History:? Objective: * Vitals:? Assessment: Plan: * Treatment: * * The named appointment provid er may or may not be the originator of this progress note, and it is not deemed complete until electronically signed by the appointment provider. Sign off status: Pending * Provider:?Shay Frost MD Date:?0 12/20/2024 Generated for Shawnee coffman/Dimitris/eTcalitting on:?03/01/2025 06:32 PM EDT
--- OUTSIDE RECORDS SUMMARY | 2025-03-01 18:32 | XMS_ITS | Data Portability ---
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 Several intermittent SOB episodes are getting worked up by Dr Leela Baptiste. 3 Scripts written for out of state are updated. Patient is given latest news about her bladder medication and possible association with dementia. For her improvements in her quality of life outweigh potential risks at this time. 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 Asymptomatic vulvar sebaceous cysts. Not available 07/16/2020 18:39:22 09/10/2021 09/10/2021 Some increased unstable bladder symptoms. Will increase trial of solifenacin to 10 mg tabs. Fioricet refilled for migraines. Fluoxetine refilled for hx of mild depression. Discussed having primary care refill some of these medications after my usp. Stable asymptomatic vulvar sebaceous cysts. Patient ok with leaving them as is. Discussed frequency of visits and aging. She is still working and not on medicare. Not available 09/13/2021 11:08:15 Plan of Treatment Reminders Order Date Submit Date Provider Last Modified By Organization Details Last Modified Time Details Appointments None recorded . Lab pap, IG + HPV 2024 025 [facility], [address] [place], [address] 01/29/202 5 11:26:52 pap, IG + reflex HPV 2022 023 [facility], [address] [place] [address], [id number] 3 10:18:42 urinalys is, dipstick 2020 021 In-Office Order, Internal Use Only DO Not Attach Compendium DO Not Attach Compendium, Do Not Delete/merge, [id number] 1 15:12:17 pap, IG + HPV 2020 021 [facility], [address] [place] [address], [id number] 1 07:30:48 urinalys is, dipstick 2019 020 In-Office Order, Internal Use Only DO Not Attach Compendium DO Not Attach Compendium, Do Not Delete/merge, [id number] 0 17:09:19 pap, IG + HPV 2019 020 [facility], [address] [place] [address], [id number] 0 13:33:39 urinalys is, dipstick 2018 019 In-Office Order, Internal Use Only DO Not Attach Compendium DO Not Attach Compendium, Do Not Delete/merge, [id number] 9 11:58:02 Referral None recorded . Procedures None recorded . Surgeries None recorded . Imaging MAMMO, screenin g, digital, bilatera l, w/ CAD 2024 025 [facility], [address] [place] [address] [place], [address], 5 08:41:29 DEXA, axial skeleton 2024 025 [facility], [address] [place] [address] [place], [address], 5 08:41:29 Medication Orders fluoxeti ne 20 mg capsule 2020 021 [id number], [address] [place], [address], 15:56:35 Fioricet 50 mg-300 mg-40 mg capsule 2020 021 [id number], [address] [place], [address], 3 15:04:49 solifena krunal 10 mg tablet 2020 021 [id number], [address] [place], [address], 3 15:05:28 Patient TargetsNo targets recorded. Patient Instructions Encounter Date Encounter Id Patient Instructions Last Modified By Organization Details Last Modified Time 05/05/2019 [id number] This patient is encouraged to continue her breast self exams, do weight bearing exercise as she is able, and to eat healthy. [email or web address] Not available 05/09/2019 07:17:08 Patient presents for a well woman exam. Her TABLET TESTER history is remarkable as noted above Her exam is normal. She voices understanding of today's visit and her health issues. All questions are answered. 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 [email or web address] Not available 05/09/2019 07:17:15 07/12/2020 [id number] This patient is encouraged to continue her breast self exams, do weight bearing exercise as she is able, and to eat healthy. [email or web address] Not available 07/16/2020 18:39:28 Patient presents for a well woman exam. Her TABLET TESTER history is remarkable as noted above Her exam is normal. She voices understanding of today's visit and her health issues. All questions are answered. 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 [email or web address] Not available 07/16/2020 18:39:35 09/10/2021 [id number] This patient is encouraged to continue her breast self exams, do weight bearing exercise as she is able, and to eat healthy. [email or web address] Not available 09/13/2021 11:07:28 Patient presents for a well woman exam. Her TABLET TESTER history is remarkable as noted above Her exam is normal. ?? She voices understanding of today's visit and her health issues. All questions are answered. 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 Not available 09/13/2021 11:08:23 05/23/2023 [id number] Patient presents for a well woman exam. Her history is unremarkable and her exam is normal. She has been counseled regarding Pap smear screening as per guidelines of every three years for cytology review with high risk HPV testing. I have recommended an annual Digital Bilateral Mammogram and an order sheet has been given to her. She has been counseled regarding menopausal symptoms including hot flushes, vaginal dryness, mood changes, and difficulty sleeping. She has been offered an appointment to speak to me specifically about these symptoms and some strategies to ease them if and when they occur. I have counseled her about the benefit of performing monthly self-breast exams. We spoke about the recommendation of 1200 mg of daily Calcium supplementation and 600iu of Vitamin D daily. 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 [email or web address] Not available 05/23/2023 14:42:20 Reason for Referral None Reported. Results Created Date Observation Date Name Description Value Unit Range Abnormal Flag Note LastModifiedBy Organization Detail LastModifiedTime 05/05/20 19 05/06/2019 pap, IG + HPV HPV result Negati ve negati ve APTIM A HPV assay detec ts 14 high risk HPV types (HPV 16,18 ,31,3 3,35, 39,45 , 51,52 ,56,5 8,59, 66,68 ). The assay is FDA appro agustin for testi ng ThinP rep liqui d Pap vials but not FDA appro agustin for detec ting HPV in SureP ath liqui d Pap speci mens. In-ho use valid ation has shown the assay can detec t all HPV types from this sourc e. Not Available [facility] [address] [place], [address] 05/07/2019 07:55:15 05/05/20 19 05/07/2019 pap, IG + HPV report GYNEC OLOGI GAURANG CYTOL OGY REPOR T A. THINP REP PAP (IMAG ER) WITH HPV SCREE N AND REFLE X TO HPV 16,18 /45: SPECI MEN ADEQU ACY: SATIS FACTO RY FOR EVALU ATION . INTER PRETA TION: NEGAT BELINDA FOR INTRA EPITH ELIAL LESIO N OR MALIG FELIX . ATROP HY. SCANT CELLU LARIT Y. Elect leland allfermin Rose d Out By: CR LENNON, [place]( CP) CLINI GAURANG INFOR MATIO N: LMP: NI Z01.4 11 Z01.4 19 Biops y Date: NI Numbe r of vials /slid es submi tted: 1 Speci men sourc e: ENDOC ERVIX Abnor mal Pap Date: NI Autom ated presc reeni ng of all liqui d based speci mens is perfo rmed by the ThinP rep Imagi ng Syste mviryes s other watts state d. The Pap test is a scree horacio test with an inher ent false negat belinda rate. Testi ng perfo rmed at [facility] , [address] [place] [address] CLIA [id number]. Not Available [facility] [address] [place], [address] 05/07/2019 07:55:15 05/05/2005/05/2019 urina lysis , dipst ick Interpretati on negati ve Not Available In-Office Order Internal Use Only DO Not Attach Compendium DO Not Attach Compendium, Do Not Delete/merge, [id number] 05/05/2019 10:43:27 05/05/2005/05/2019 urina lysis , dipst ick Leukocytes Negati ve Not Available In-Office Order Internal Use Only DO Not Attach Compendium DO Not Attach Compendium, Do Not Delete/merge, [id number] 05/05/2019 10:43:27 05/05/2005/05/2019 urina lysis , dipst ick Nitrite negati ve Not Available In-Office Order Internal Use Only DO Not Attach Compendium DO Not Attach Compendium, Do Not Delete/merge, [id number] 05/05/2019 10:43:05/05/20 19 05/05/2019 urina lysis , dipst ick Urobilinogen Normal : 0.2 mg/dl Not Available In-Office Order Internal Use Only DO Not Attach Compendium DO Not Attach Compendium, Do Not Delete/merge, [id number] 05/05/2019 10:43:27 05/05/20 19 05/05/2019 urina lysis , dipst ick Protein Negati ve Not Available In-Office Order Internal Use Only DO Not Attach Compendium DO Not Attach Compendium, Do Not Delete/merge, [id number] 05/05/2019 10:43:27 05/05/20 19 05/05/2019 urina lysis , dipst ick Blood Negati ve Not Available In-Office Order Internal Use Only DO Not Attach Compendium DO Not Attach Compendium, Do Not Delete/merge, 05/05/2019 10:43:27 05/05/20 19 05/05/2019 urina lysis , dipst ick Ketone Negati ve Not Available In-Office Order Internal Use Only DO Not Attach Compendium DO Not Attach Compendium, Do Not Delete/merge, [id number] 05/05/2019 10:43:27 05/05/20 19 05/05/2019 urina lysis , dipst ick Bilirubin Negati ve Not Available In-Office Order Internal Use Only DO Not Attach Compendium DO Not Attach Compendium, Do Not Delete/merge, [id number] 05/05/2019 10:43:27 05/05/20 19 05/05/2019 urina lysis , dipst ick Glucose Negati ve Not Available In-Office Order Internal Use Only DO Not Attach Compendium DO Not Attach Compendium, Do Not Delete/merge, [id number] 05/05/2019 10:43:27 05/05/20 19 05/05/2019 urina lysis , dipst ick Appearance Clear Not Available In-Offi ce Order Internal Use Only DO Not Attach Compendium DO Not Attach Compendium, Do Not Delete/merge, [id number] 05/05/2019 10:43:27 05/05/20 19 05/05/2019 urina lysis , dipst ick Color Pale Yellow Not Available In-Office Order Internal Use Only DO Not Attach Compendium DO Not Attach Compendium, Do Not Delete/merge, [id number] 05/05/2019 10:43:27 07/12/20 20 07/12/2020 HPV DNA, high- risk HPV MRNA E6/E7 Negati ve negati ve APTIM A HPV assay detec ts 14 high risk HPV types (HPV 16,18 ,31,3 3,35, 39,45 ,51,5 2,56, 58,59 ,66,6 8). The assay is FDA appro agustin for testi ng ThinP rep liqui d Pap vials but not FDA appro agustin for detec ting HPV in SureP ath liqui d Pap speci mens. In-ho use valid ation has shown the assay can detec t all HPV types from this sourc e Not Available [facility] [address] [place], [address] 07/13/2020 13:33:36 07/12/2007/12/2020 pap, IG + HPV report Report Final Gynec ologi gaurang Cytol ogy Repor t ----- ----- ----- ----- ----- ----- ----- ----- ----- ----- ----- ----- ThinP rep Pap Test, HPV Scree n, Refle x HPV Genot ype SPECI MEN ADEQU ACY: SATIS FACTO RY FOR EVALU ATION . INTER PRETA TION: NEGAT BELINDA FOR INTRA EPITH GLORIA Velazquez OR ERIN [place] . Atrop hy Elect leland Rose d: Cr Azra CT (ASCP ) ----- ----- ----- ----- ----- ----- ----- ----- ----- ----- ----- ----- CLINI GAURANG SOMMER BOONE N: LMP: NG Speci men Sourc e: Cervi x, Endoc ervix HPV RESUL TS: HPV mRNA E6/E7 [id number] Appro agustin: 07/13 Negat belinda REF RANGE : Negat belinda CPT Codes : 54621 ICD Codes : Z01.4 11, Z01.4 19 Not Available [facility] [address] [place], [address] 07/13/2020 13:33:39 07/12/20 20 07/12/2020 urina lysis , dipst ick Interpretati on negati ve Not Available In-Office Order Internal Use Only DO Not Attach Compendium DO Not Attach Compendium, Do Not Delete/merge, [id number] 07/12/2020 15:07:09 07/12/20 20 07/12/2020 urina lysis , dipst ick Leukocytes Negati ve Not Available In-Office Order Internal Use Only DO Not Attach Compendium DO Not Attach Compendium, Do Not Delete/merge, [id number] 07/12/2020 15:07:09 07/12/20 20 07/12/2020 urina lysis , dipst ick Nitrite negati ve Not Available In-Office Order Internal Use Only DO Not Attach Compendium DO Not Attach Compendium, Do Not Delete/merge, [id number] 07/12/2020 15:07:09 07/12/20 20 07/12/2020 urina lysis , dipst ick Urobilinogen Normal : 0.2 mg/dl Not Available In-Office Order Internal Use Only DO Not Attach Compendium DO Not Attach Compendium, Do Not Delete/merge, [id number] 07/12/2020 15:07:09 07/12/20 20 07/12/2020 urina lysis , dipst ick Protein Negati ve Not Available In-Office Order Internal Use Only DO Not Attach Compendium DO Not Attach Compendium, Do Not Delete/merge, [id number] 07/12/2020 15:07:09 07/12/20 20 07/12/2020 urina lysis , dipst ick pH 5.0 Not Available In-Office Order Internal Use Only DO Not Attach Compendium DO Not Attach Compendium, Do Not Delete/merge, [id number] 07/12/2020 15:07:09 07/12/20 20 07/12/2020 urina lysis , dipst ick Blood Negati ve Not Available In-Office Order Internal Use Only DO Not Attach Compendium DO Not Attach Compendium, Do Not Delete/merge, [id number] 07/12/2020 15:07:09 07/12/20 20 07/12/2020 urina lysis , dipst ick Specific Frontier 1.000 Not Available In-Off ice Order Internal Use Only DO Not Attach Compendium DO Not Attach Compendium, Do Not Delete/merge, [id number] 07/12/2020 15:07:09 07/12/20 20 07/12/2020 urina lysis , dipst ick Ketone Negati ve Not Available In-Office Order Internal Use Only DO Not Attach Compendium DO Not Attach Compendium, Do Not Delete/merge, [id number] 07/12/2020 15:07:09 07/12/20 20 07/12/2020 urina lysis , dipst ick Bilirubin Negati ve Not Available In-Office Order Internal Use Only DO Not Attach Compendium DO Not Attach Compendium, Do Not Delete/merge, [id number] 07/12/2020 15:07:09 07/12/20 20 07/12/2020 urina lysis , dipst ick Glucose Negati ve Not Available In-Office Order Internal Use Only DO Not Attach Compendium DO Not Attach Compendium, Do Not Delete/merge, [id number] 07/12/2020 15:07:09 07/12/20 20 07/12/2020 urina lysis , dipst ick Appearance Clear Not Available In-Offi ce Order Internal Use Only DO Not Attach Compendium DO Not Attach Compendium, Do Not Delete/merge, [id number] 07/12/2020 15:07:09 07/12/20 20 07/12/2020 urina lysis , dipst ick Color Yellow Not Available In-Office Order Internal Use Only DO Not Attach Compendium DO Not Attach Compendium, Do Not Delete/merge, [id number] 07/12/2020 15:07:09 09/10/20 21 09/10/2021 HPV MRNA E6/E7 HPV MRNA E6/E7 Negati ve negati ve APTIM A HPV assay detec ts 14 high risk HPV types (HPV 16,18 ,31,3 3,35, 39,45 ,51,5 2,56, 58,59 ,66,6 8). The assay is FDA appro agustin for testi ng ThinP rep liqui d Pap vials but not FDA appro agustin for detec ting HPV in SureP ath liqui d Pap speci mens. In-ho use valid ation has shown the assay can detec t all HPV types from this sour e Not Available [facility] [address] [place], [address] 09/13/2021 07:30:46 09/10/20 21 09/10/2021 THINP REP PAP TEST (IMAG ER), HPV SCREE N, REFLE X HPV 16,18 /45 report Report Final Gynec ologi gaurang Cytol ogy Repor t ----- ----- ----- ----- ----- ----- ----- ----- ----- ----- ----- ----- ThinP rep Pap Test, HPV Scree n, Refle x HPV Genot ype SPECI MEN ADEQU ACY: SATIS FACTO RY FOR EVALU ATION . INTER PRETA TION: NEGAT BELINDA FOR INTRA EPITH ELIAL AI Velazquez OR ERIN [place] . Elect leland Rose d: Yessy Aguilar, [place] (ASCP ) ----- ----- ----- ----- ----- ----- ----- ----- ----- ----- ----- ----- CLINI GAURANG INFOR MELY N: LMP: NG Speci men [facility] e: Cervi x, Endoc ervix HPV RESUL TS: HPV mRNA E6/E7 [id number] Appro agustin: 09/11 Negat belinda REF RANGE : Negat belinda CPT Codes : 84170 ICD Codes : Z01.4 11, Z01.4 19 Not Available [facility] [address] [place], [address] 09/13/2021 07:30:48 09/10/20 21 09/10/2021 urina lysis , dipst ick Leukocytes Negati ve Not Available In-Office Order Internal Use Only DO Not Attach Compendium DO Not Attach Compendium, Do Not Delete/merge, [id number] 09/10/2021 13:40:12 09/10/20 21 09/10/2021 urina lysis , dipst ick Nitrite negati ve Not Available In-Office Order Internal Use Only DO Not Attach Compendium DO Not Attach Compendium, Do Not Delete/merge, [id number] 09/10/2021 13:40:12 09/10/20 21 09/10/2021 urina lysis , dipst ick Urobilinogen Normal : 0.2 mg/dl Not Available In-Office Order Internal Use Only DO Not Attach Compendium DO Not Attach Compendium, Do Not Delete/merge, [id number] 09/10/2021 13:40:12 09/10/20 21 09/10/2021 urina lysis , dipst ick Protein Negati ve Not Available In-Office Order Internal Use Only DO Not Attach Compendium DO Not Attach Compendium, Do Not Delete/merge, 09/10/2021 13:40:12 09/10/20 21 09/10/2021 urina lysis , dipst ick pH 5.0 Not Available In-Office Order Internal Use Only DO Not Attach Compendium DO Not Attach Compendium, Do Not Delete/merge, [id number] 09/10/2021 13:40:12 09/10/20 21 09/10/2021 urina lysis , dipst ick Blood Negati ve Not Available In-Office Order Internal Use Only DO Not Attach Compendium DO Not Attach Compendium, Do Not Delete/merge, [id number] 09/10/2021 13:40:12 09/10/20 21 09/10/2021 urina lysis , dipst ick Specific Frontier 1.000 Not Available In-Off ice Order Internal Use Only DO Not Attach Compendium DO Not Attach Compendium, Do Not Delete/merge, [id number] 09/10/2021 13:40:12 09/10/20 21 09/10/2021 urina lysis , dipst ick Ketone Negati ve Not Available In-Office Order Internal Use Only DO Not Attach Compendium DO Not Attach Compendium, Do Not Delete/merge, [id number] 09/10/2021 13:40:12 09/10/20 21 09/10/2021 urina lysis , dipst ick Bilirubin Negati ve Not Available In-Office Order Internal Use Only DO Not Attach Compendium DO Not Attach Compendium, Do Not Delete/merge, [id number] 09/10/2021 13:40:12 09/10/20 21 09/10/2021 urina lysis , dipst ick Glucose Negati ve Not Available In-Office Order Internal Use Only DO Not Attach Compendium DO Not Attach Compendium, Do Not Delete/merge, [id number] 09/10/2021 13:40:12 05/23/20 23 05/23/2023 THINP REP PAP TEST (IMAG ER) WITH HPV REFLE X report Report Final Gynec ologi gaurang Cytol ogy Repor t ----- ----- ----- ----- ----- ----- ----- ----- ----- ----- ----- ----- ThinP rep Pap Test with HPV Refle x SPECI MEN ADEQU ACY: SATIS FACTO RY FOR EVALU ATION . INTER PRETA TION: NEGAT BELINDA FOR INTRA EPITH ELIVIPUL Velazquez OR ERIN [place] . Elect leland Rose d: Cr Azar, SELIN (ASCP ) ----- ----- ----- ----- ----- ----- ----- ----- ----- ----- ----- ----- CLINI GAURANG JOHNR MELY N: LMP: NG Clini gaurang Histo ry: NG Biops y Date: NG Speci men [facility] e: Cervi x, Endoc ervix Previ ous Pap Date: CPT Codes : 45418 ICD Codes : Z01.4 19 Not Available [facility] [address] [place], [address] 05/30/2023 10:18:42 12/02/19 25 12/02/2024 HPV MRNA E6/E7 HPV MRNA E6/E7 Negati ve negati ve APTIM A HPV assay detec ts 14 high risk HPV types (HPV 16,18 ,31,3 3,35, 39,45 ,51,5 2,56, 58,59 ,66,6 8). The assay is FDA appro agustin for testi ng ThinP rep liqui d Pap vials but not FDA appro agustin for detec ting HPV in SureP ath liqui d Pap speci mens. In-ho use valid ation has shown the assay can detec t all HPV types from this sour e Not Available [facility] [address] [place], [address] 12/08/2024 11:26:47 12/02/19 25 12/02/2024 THINP REP PAP TEST (IMAG ER), HPV SCREE N, REFLE X HPV 16,18 /45 report Report Final Gynec ologi gaurang Cytol ogy Repor t ----- ----- ----- ----- ----- ----- ----- ----- ----- ----- ----- ----- ThinP rep Pap Test, HPV Scree n, Refle x HPV Genot ype SPECI MEN ADEQU ACY: SATIS FACTO RY FOR EVALU ATION . INTER PRETA TION: NEGAT BELINDA FOR INTRA EPITH GLORIA Velazquez OR ERIN [place] . Atrop hy Elect leland Rose d: Niraj Metcalf CT (ASCP ) Elect leland Rose d: Rabia Brasher, [place]( CP) ----- ----- ----- ----- ----- ----- ----- ----- ----- ----- ----- ----- CLINI GAURANG INFOR MELY N: LMP: NG Clini gaurang Histo ry: NG Biops y Date: NG Speci men Sourc e: Cervi x, Endoc ervix Previ ous Pap Date: NG HPV RESUL TS: HPV mRNA E6/E7 63326 [id number] Appro agustin: 12/03 Negat belinda REF RANGE : Negat belinda CPT Codes : 46940 ICD Codes : Z01.4 19 Not Available [facility] [address] [place], [address] 12/08/2024 11:26:52 05/07/20 19 05/06/2019 MAMMO , scree horacio, digit al, bilat eral No observ ation record ed. [email or web address] Not Available 2018 11:27:40 06/17/20 19 06/15/2019 bone densi ty No observ ation record ed. [email or web address] Not Available 2018 08:59:58 07/23/20 24 07/01/2024 MAMMO , scree horacio, digit al, bilat eral No observ ation record ed. [email or web address] Not Available 2023 07:37:43 Result Notes None recorded. Problems Name Problem SNOMED Code Status Onset Date Resolution Date Notes Provider Name and Address Organization Details Recorded Time History of depressio n 848383579 Active Not Available [facility] 18:28:44 Migraine 09326550 Active Not Available [facility] 18:28:44 Hyperchol esterolem ia 36331170 Active Not Available [facility] 18:28:44 Lactose intoleran ce Active Not Available [facility] 18:28:44 Epidermoi d cyst of skin 569158839 Active Located on right vulva for several years, not an issue. Now with multiple sebaceous cysts. Not Available [facility] 18:28:44 Sleep apnea 65938515 Active 2017 Using Cpap for about one year. Not Available [facility] 18:28:44 Irritabil ity of urinary bladder 526754014 Active 2014 Overactive , Enablex stopped working, and Vesicare is working. Not Available [facility] 18:28:44 Problem Notes None recorded. Procedures Surgical History Date Name Laterality Status Provider Name and Address Organization Details Recorded Time 4 Date of Last Mammogram completed [facility] 11/24/2024 12:21:15 3 Date of Last Pap Smear completed [facility] 11/24/2024 12:21:06 Imaging Results Imaging Date Name Status LastModified by [email or web address] Details LastModified Time 05/06/2019 MAMMO, screening, digital, bilateral completed [email or web address] Information not available 05/07/2019 11:27:40 06/15/2019 bone density completed [email or web address] Information not available 06/18/2019 08:59:58 07/01/2024 MAMMO, screening, digital, bilateral completed [email or web address] Information not available 07/30/2024 07:37:43 Procedure Notes None recorded. Medical Equipment None Reported. Allergies Allergen ID Allergen Name Allergen Category Reaction Reaction Severity Criticality Documentation Date Start Date Code Code System Note Provider Name and Address Organization Details Recorded Time 503939 No known allergy (situatio n) Not available Not available Not available Not available 04/18/20152013 40600 6003 SNOMED Not Available [facility] 5 09:35:38 No known drug allergies Medications Name Sig Start Date Stop Date Status Note LastModified by Organization Details LastModified Time amoxicill in 500 mg capsule TAKE 1 CAPSULE BY MOUTH EVERY 8 HOURS UNTIL FINISHED 12/02 completed Not Available Not Available Not Available doxycycli ne hyclate 100 mg capsule TAKE 1 CAPSULE BY MOUTH TWICE A DAY UNTIL GONE 12/02 completed Not Available Not Available Not Available azithromy krunal 250 mg tablet TAKE 2 TABLETS BY MOUTH TODAY, THEN TAKE 1 TABLET DAILY FOR 4 DAYS 05/23 completed Not Available Not Available Not Available pravastat in 40 mg tablet 09/10 completed Not Available Not Available Not Available ibuprofen 800 mg tablet TAKE 1 TABLET BY MOUTH THREE TIMES A DAY FOR SWELLING 05/23 completed Not Available Not Available Not Available Fiorinal 50 mg-325 mg-40 mg capsule Take 1 capsule every 4 hours by oral route. 04/30 completed Not Available Not Available Not Available hydrocodo ne 5 mg-acetam inophen 325 mg tablet TAKE 1 TABLET BY MOUTH EVERY SIX HOURS NEEDED FOR PAIN 05/23 completed Not Available Not Available Not Available triazolam 0.125 mg tablet TAKE 2 TABLET BY MOUTH DIRECTED 90 MINUTES PRIOR TO PROCEDUR E 05/23 completed Not Available Not Available Not Available pimecroli mus 1 % topical cream APPLY TO AFFECTED AREA EVERY DAY NEEDED ONLY 05/23 completed Not Available Not Available Not Available butalbita l-acetami nophen-ca ffeine 50 mg-325 mg-40 mg tablet TAKE 1 TABLET BY MOUTH EVERY 6 HOURS NEEDED FOR PAIN 09/10 completed Not Available Not Available Not Available oxycodone -acetamin ophen 5 mg-325 mg tablet TAKE 1 TABLET BY MOUTH EVERY 6 HOURS NEEDED FOR PAIN 05/23 completed Not Available Not Available Not Available pravastat in 80 mg tablet TAKE 1 TABLET BY MOUTH EVERY DAY active Not Available Not Available No t Available potassium citrate ER 10 mEq (1,080 mg) tablet,ex tended release TAKE 1 TABLET ORALLY 2 TIMES A DAY FOR 90 DAYS active Not Available Not Available No t Available oseltamiv ir 75 mg capsule 07/12 completed Not Available Not Available Not Available polymyxin B sulfate 10,000 unit-trim ethoprim 1 mg/mL eye drops 07/12 completed Not Available Not Available Not Available triamcino lone acetonide 0.025 % topical ointment 05/23 completed Not Available Not Available Not Available pyridoxin e (vitamin B6) 50 mg tablet TAKE 1 TABLET BY MOUTH EVERY DAY active Not Available Not Available No t Available pravastat in 20 mg tablet 05/23 completed Not Available Not Available Not Available Baby Aspirin 81 mg chewable tablet 03/04 completed PRESCRIB ED ELSEWHER E Not Available Not Available Not Available fluoxetin e 20 mg capsule TAKE 1 CAPSULE BY MOUTH EVERY DAY active Not Available Not Available No t Available metronida zole 0.75 % topical gel 05/05 completed Not Available Not Available Not Available ezetimibe 10 mg tablet TAKE 1 TABLET BY MOUTH EVERY DAY active Not Available Not Available No t Available Crestor 5 mg tablet active PRESCRIB ED ELSEWHER E Not Available Not Available Not Available Prilosec OTC 20 mg tablet,de layed release Take one tablet daily 05/23 completed Not Available Not Available Not Available solifenac in 5 mg tablet TAKE 1 TABLET BY MOUTH EVERYDAY AT BEDTIME 05/23 completed Not Available Not Available Not Available solifenac in 10 mg tablet TAKE 1 TABLET BY MOUTH EVERY DAY active Not Available Not Available No t Available Enablex 7.5 mg tablet,ex tended release TAKE 1 TABLET BY ORAL ROUTE EVERY DAY 04/17 completed Not Available Not Available Not Available chlorhexi dine gluconate 0.12 % mouthwash RINSE WITH 15 ML BY MOUTH TWICE A DAY GENTLY RINSE. SPIT OUT, DO NOT SWALLOW. 05/23 completed Not Available Not Available Not Available Prilosec 07/12 completed Not Available Not Available Not Available Fioricet 05/23 completed Not Available Not Available Not Available Baby Aspirin 07/12 completed Not Available Not Available Not Available Vitamin D3 10 mcg (400 unit) capsule 03/04 completed PRESCRIB ED ELSEWHER E Not Available Not Available Not Available CoQ-10 30 mg capsule 03/04 completed PRESCRIB ED ELSEWHER E Not Available Not Available Not Available omeprazol e 20 mg tablet,de layed release 07/12 completed Not Available Not Available Not Available Zyrtec 10 mg capsule 05/23 completed PRESCRIB ED ELSEWHER E Not Available Not Available Not Available butalbita l-acetami nophen-ca ffeine 50 mg-300 mg-40 mg capsule TAKE 1 CAPSULE BY MOUTH EVERY DAY NEEDED active Not Available Not Available No t Available Paxlovid 300 mg (150 mg x 2)-100 mg tablets in a dose pack TAKE 3 TABLETS BY MOUTH TWICE A DAY FOR 5 DAYS 12/02 completed Not Available Not Available Not Available Vitals Date Recorded Body height Body mass index (BMI) Body weight Systolic blood pressure Diastolic blood pressure Provider Name and Address Organization Details Last Updated DateTime 05/05/2019 157.48 cm 29.6 kg/m2 36553.96 g 134 mm[Hg] 62 mm[Hg] Crystal Kay [facility] 9 10:37:36 Date Recorded Body temperature Body weight Body mass index (BMI) Body height Systolic blood pressure Diastolic blood pressure Provider Name and Address Organization Details Last Updated DateTime 0 97.3 [degF] 51932.3 3 g 31.4 kg/m2 154.94 cm 122 mm[Hg] 82 mm[Hg] Raisa Ann [facility] 0 15:06:45 Date Recorded Body weight Body mass index (BMI) Body height Systolic blood pressure Diastolic blood pressure Provider Name and Address Organization Details Last Updated DateTime 09/10/2021 20062.56 g 28.9 kg/m2 160.02 cm 107 mm[Hg] 80 mm[Hg] Oliva Arriola [facility] 1 13:46:48 Date Recorded Body height Body mass index (BMI) Body weight Systolic blood pressure Diastolic blood pressure Provider Name and Address Organization Details Last Updated DateTime 05/23/2023 160.02 cm 29.6 kg/m2 25565.93 g 142 mm[Hg] 72 mm[Hg] Rachel Zhao [facility] 3 15:08:08 Date Recorded Body weight Body mass index (BMI) Body height Systolic blood pressure Diastolic blood pressure Provider Name and Address Organization Details Last Updated DateTime 12/02/2024 54307.93 g 29.6 kg/m2 160.02 cm 130 mm[Hg] 70 mm[Hg] Nohelia Valente [facility] 5 14:00:00 Social History Question Answer Notes LastModified by Organizat ion Details LastModified Time Tobacco Smoking Status Never Smoker Earlene pate, [facility] 06/26/2018 09:10:19 What Is Your Level Of Alcohol Consumption? Moderate [email or web address] Information not available 07/12/2020 How Many Times Per Week Do You Consume Alcohol? 5-7 Times Per Week Information not available 12/02/2024 Do You Have Any Children? Yes [email or web address] Information not available 07/12/2020 Does Your Partner Physically Hurt You Or Threaten To Hurt You? No Information not available 04/30/2018 Has Your Partner Forced You To Have Sex Or Perform Sex Acts When You Did Not Want To? No Information not available 04/30/2018 Does Your Partner Insult, Scream At Or Talk Down To You? No Information not available 04/30/2018 Does Your Partner Control You Or Any Part Of Your Life? No Information not available 04/30/2018 Are You Afraid Of Your Partner? No Information not available 04/30/2018 Drug Use? No [email or web address] Information no t available 06/26/2018 Do You Feel Safe At Home? Yes [email or web address] Information not available 06/26/2018 What Was The Date Of Your Most Recent Tobacco Screening? 12/02/2024 Information not available 12/02/2024 How Many Children Do You Have? 4 5; One Information not available 05/23/2023 Are You Sexually Active? No Information not available 05/23/2023 How Much Tobacco Do You Smoke? No Information not available 04/30/2018 Sex: Unknown Functional Status None recorded. Mental Status None recorded. Family History Relationship Description Onset Age of this Age Resolved Age Notes LastModified by Organization Details LastModified Time Father Cerebrovascu lar accident [email or web address] Not available 14:42:59 Notes:denies family hx: mauricio st, colon, ovarian cancer Medical History Condition Response Hyperlipidemia Y Gynecological History Statement/Question Response Current Control Method Menopause Date of Last Colonoscopy Date of Last Mammogram 07/01/2024 Date of LMP Date of last DEXA 06/15/2019 IPV Screen Done 12/02/2024 Date of Last Pap Smear 05/23/2023 Last HPV Result Negative Obstetrics History GPAL:G 5 P 4 0 1 4 Type Value Full Term 4 Spontaneous 1 Living 4 Total 5 Past Encounters Encounter ID Performer Location Encounter Start Date Encounter Closed Date Diagnosis/Indication Diagnosis SNOMED-CT Code Diagnosis ICD10 Code Diagnosis Note [id number] [facility] [address] [place] [address] 03/01/2013 00:00:00 [id number] [facility] [address] [place] [address] 03/04/2014 00:00:00 [id number] [facility] [address] [place] [address] 03/21/2015 00:00:00 [id number] MAGALY MARCANO MD [address] [address] 03/27/2016 14:27:39 03/28/2016 13:46:22 Gynecologic examination 59088897 Z01.411 Z01.680 [id number] MAGALY MARCANO MD [address] [address] 04/17/2017 09:15:39 04/21/2017 08:32:20 Gynecologic examination 65630554 Z01.411 Z01.419 Bladder mu scle dysfunction - overactive 120732469 N32.81 History of depression 16 0987043 Z86.59 [id number] MAGALY MARCANO MD [address] [address] 04/30/2018 09:44:37 05/02/2018 06:18:46 Gynecologic examination 89194517 Z01.411 Z01.303 [id number] MAGALY MARCANO MD [address] [address] 06/26/2018 09:01:12 06/29/2018 08:58:54 [id number] MAGALY MARCANO MD [facility] [address] [place] [address] 05/05/2019 10:30:11 05/11/2019 10:09:12 Gynecologic examination 71265992 Z01.411 Z01.131 [id number] MAGALY MARCANO MD [address] [address] 07/12/2020 14:50:58 07/18/2020 07:44:37 Gynecologic examination 77722253 Z01.411 Z01.419 Urinary symptoms 6672670 08 R39.9 [id number] MAGALY MARCANO MD [address] [address] 09/10/2021 13:36:17 09/11/2021 08:50:53 Gynecologic examination 86500890 Z01.411 Z01.419 History of depression 16 9463001 Z86.59 Irritabili ty of urinary bladder 480475127 N32.89 Migraine 63912807 G43.90 9 [id number] ADELITA GENTILE DO [address] [address] 05/23/2023 14:36:59 05/23/2023 15:27:12 Gynecologic examination 16053829 Z01.419 Pap doneRx yearly breast imagingUTD with colonoscop y [id number] ADELITA GENTILE DO [address] [address] 12/02/2024 13:48:25 12/03/2024 08:41:29 Gynecologic examination 17859799 Z01.419 Pap done per pt requestRx yearly breast imagingSch eduling colonoscop y Screening mammography 24 229811 Z12.31 Screening for osteoporosis 589476741 Z13.820 Last doen 2018 Health Concerns Section Related Observation LastModified by Organization Detai ls LastModified Time None Recorded Concern Status LastModified by Organization Details LastModified Time None Recorded Advance Directives Directive None Recorded Payers Encounter Date Sequence Insurance Name Policy Number Policy Garcia Covered Member ID Garcia Member ID Guarantor Name 05/05/2019 1 [facility] [id number] Yamilka Gómezardier [id number] Yamilka Gómezardier 07/12/2020 1 [facility] [id number] Yamilka Gómezardier [id number] Yamilka Gómezardier 09/10/2021 1 [facility] [id number] Yamilka Gómezardier [id number] Yamilka Gómezardier 12/02/2024 1 [place] BC[employer] [id number] Yamilka Gómezardier [id number] Yamilka Gómezardier 12/02/2024 2 MEDICARE B-CT: NGS Yamilka Gómezardier [id number] Yamilka Gómezardier Notes Date Note Type Note Provider Name and Address Organization Details Recorded Time 05/05/2019 text/html [facility] Annual GYNReported bypatient.Preventi ve measures:Encourage self breast examination; Encourage regular exercise; Encourage regular mammograms starting age 40; Mammogram performed within the past year; Up to date on colonoscopy screening; DEXA needs to schedule This patient is doing well, but has had several episodes of SOB. Initial workup is negative, but to do holter on iphone and have calcium CAT scan upcoming. She is seeing Dr Adelita Baptiste. Her had some mini TIA symptoms, and workup showed small defect in his heart. He had lost vision temporarily. This patient has not had any breast or pelvic issues. She would like her 3 scripts renewed for migraines, overactive bladder, and depression. MAGALY MARCANO MD [address] [place] [address], [address] Floor, [place], [address], [place] [facility] 05/09/2019 07:18:10 07/12/2020 text/html [facility] Annual GYNReported bypatient.Preventi ve measures:Encourage self breast examination; Encourage regular exercise; Mammogram performed within the past year; Up to date on colonoscopy screening; DEXA up to dateNotes: This patient is returning to school next week in [place]. She and her still working FT. He is doing workman's Comp. She is not having any breast or pelvic issues. No medical changes. MAGALY MARCANO MD [address], [address], [facility] 07/16/2020 18:39:57 09/10/2021 text/html This patient is doing well. 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 Her mother is 93 and living on her own in [place]. The patient would like to increase her unstable bladder medication as it has become less effective. She is on 5 mg per day now. The express script message of her being on fluoxetine for an extended period of time is reviewed. She would like to continue and not try to taper. She is still using the fioricet on occasion for her migraines. She is not having any breast or pelvic issues. MAGALY MARCANO MD [address], [address], [facility] 09/13/2021 11:08:39 05/23/2023 text/html [facility] Annual GYNReported bypatient.Notes:Do ing well.Exercising regularly.No VB/TABLET TESTER complaints.Only new health concern is kidney stones. 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 ADELITA GENTILE DO [address], [address], [facility] 12/02/2024 18:02:00 OBGyn Episode No OBEpisode recorded.
--- OUTSIDE RECORDS SUMMARY | 2025-03-01 18:32 | XMS_ITS | Patient Health Record ---
Author Organization [facility] Address [address] [place] [address] Care Team Providers Care Blood Bank Attendant Name Role Phone NONE, NONE Primary Care Provider UnavailShay Witt Jr Reason For Referral No Information Encounters Encounter Location Date Provider Diagnosis [facility] [address] [facility] [address] [place] [address] 12/20/2024 Shay Frost Jr Plan Of Treatment No Information Insurance Providers Payer Name Payer Address Payer Phone Subscriber Number Group Number Insured Name Patient Relationship to Insured Coverage Start Date Coverage End Date [facility] [address] [place], [place] [id number] ROM ALCANTAR Self - patient is the insured
--- OUTSIDE RECORDS SUMMARY | 2025-03-01 18:32 | XMS_ITS | Clinical Summary ---
Author Organization [facility] [place] [address] Phone Care Team Providers Care Synchronizer Name Role Phone Som Martinez MD Primary Care Provider [phone] Surgical History Surgery Date Site/Laterality Comments DILATION AND CURETTAGE OF UTERUS PROCEDURE:DILATION AND CURETTAGE OF UTERUS OTHER SURGICAL HISTORY PROCEDURE:uterine ablation OTHER SURGICAL HISTORY PROCEDURE:TN PELVIC EXAMINATION W/ANESTHESIA OTHER THAN LOCAL OTHER SURGICAL HISTORY PROCEDURE:fractured arm repair MALIGNANT SKIN LESION EXCISION 05/14/2016 N/A PROCEDURE:MALIGNANT SKIN LESION EXCISION;COMMENT:Procedure: EXCISION BCCA OF THE BACK; Surgeon: Jacob Abernathy MD; Location: [facility]; Service: Plastics; Laterality: N/A; Medical History Medical History Date Comments Frequency of urination DX:Freque ncy of urination Migraine headache DX:Migraine he adache Cancer (CMS/HCC V24, CMS/HCC V28) DX:Cancer ([facility]);COMMENT:Bcca of skin back Sleep apnea, obstructive DX:Slee p apnea, obstructive GERD (gastroesophageal reflux disease) DX:GERD (gastroesophageal reflux disease) Dyspnea DX:Dyspnea History of stress test DX:Histor y of stress test H/O CT scan of chest DX:H/O CT s can of chest;COMMENT:Coronary CTA - normal coronary arteries , no pulmonary emboli History of stress test 12/2023 DX:Histor y of stress test;COMMENT:Delfin 6:45 min , HR 149, no ST changes, BP 160/50 Family History Medical History Relation Name Comments Stroke Father Heart failure Maternal Grandfather Seizures Maternal Grandmother Hydrocephalus Sister 1 Relation Name Status Comments Father Maternal Grandfather Maternal Grandmother Mother Alive Paternal Grandfather Paternal Grandmother Sister 1 Alive Sister 2 Alive Social History Tobacco Use Types Packs/Day Years Used Date Smoking Tobacco: Never Smokeless Tobacco: Never Alcohol Use Standard Drinks/Week Comments Yes 0 (1 standard drink = 0.6 oz pur e alcohol) Comments Unknown Sex and Gender Information Value Date Recorded Sex Assigned at Not on file Legal Sex Female 11:37 AM EST Gender Identity Not on file Sexual Orientation Not on file Obstetrics History Last Filed Vital Signs Vital Sign Reading Time Taken Comments Blood Pressure 124/70 12/11/2023 3:53 PM EST Pulse 78 03/01/2024 2:59 PM EDT Temperature - - Respiratory Rate - - Oxygen Saturation - - Inhaled Oxygen Concentration - - Weight 74.8 kg (165 lb) 09/01/2024 3:35 PM EDT Height 160 cm (5' 3 ) 09/01/2024 3:35 PM EDT Body Mass Index 29.23 09/01/2024 3:35 PM EDT Plan of Treatment Health Maintenance Due Date Last Done Comments Breast Cancer Screening 1955 DTaP,Tdap,and Td Vaccines (1 - Tdap) 1972 Pneumococcal Vaccine: 50+ Ye ars (1 of 1 - PCV) 2003 Zoster Vaccines (1 of 2) 2003 Cholesterol Screening (Lipid Panel) 10/17/2022 Colorectal Cancer Screening: Colonoscopy 10/17/2022 Depression Screening 10/17/2022 Falls Risk Assessment 10/17/2022 Hepatitis C Screening 10/17/2022 Osteoporosis Screening (Bone Density Screening) 10/17/2022 Social Influencers of Health Screening 10/17/2022 COVID-19 Vaccine (2 - 2023-2 5 season) 2024 01/17/2021 Influenza Vaccine (Season Ended) 2025 RSV Immunization Adult Patie nts (1 - 1-dose 75+ series) 2028 HIB Vaccines Aged Out No longer eligi ble based on patient's age to complete this topic HPV Vaccines Aged Out No longer eligi ble based on patient's age to complete this topic Hepatitis A Vaccines Aged Out No long er eligible based on patient's age to complete this topic Hepatitis B Vaccines Aged Out No long er eligible based on patient's age to complete this topic IPV Vaccines Aged Out No longer eligi ble based on patient's age to complete this topic MMR Vaccines Aged Out No longer eligi ble based on patient's age to complete this topic Meningococcal ACWY Vaccine Aged Out N o longer eligible based on patient's age to complete this topic Meningococcal B Vaccine Aged Out No l onger eligible based on patient's age to complete this topic RSV Immunization Patients Un [place] 20 months Aged Out No longer eligible b ased on patient's age to complete this topic Varicella Vaccines Aged Out No longer eligible based on patient's age to complete this topic Insurance MEDICARE Care Teams Synchronizer Relationship Specialty Start Date End Date Som Martinez MD [address] PCP - General Internal Medicine 07/13/19
--- OUTSIDE RECORDS SUMMARY | 2025-03-01 18:33 | XMS_ITS ---
Author Name [facility] Organization Unknown History of Medication Use Medication Directions Dispensed Refills Start Date End Date Stat ezetimibe 10 mg tablet Take 1 tablet every day by oral route for 90 days. 06/03/2022 active Prilosec OTC 20 mg tablet,delayed release Take one tablet daily 04/13/2020 05/23/2023 completed Fiorinal 50 mg-325 mg-40 mg capsule Take 1 capsule every 4 hours by oral route. 10/14/2017 04/30/2018 completed Enablex 7.5 mg tablet,extended release TAKE 1 TABLET BY ORAL ROUTE EVERY DAY 11/05/2016 04/17/2017 completed amoxicillin 500 mg capsule TAKE 1 CAPSULE BY MOUTH EVERY 8 HOURS UNTIL FINISHED 12/02/2024 completed doxycycline hyclate 100 mg capsule TAKE 1 CAPSULE BY MOUTH TWICE A DAY UNTIL GONE 12/02/2024 completed Fioricet 12/02/2024 completed Paxlovid 300 mg (150 mg x 2)-100 mg tablets in a dose pack TAKE 3 TABLETS BY MOUTH TWICE A DAY FOR 5 DAYS 09/13/2024 completed azithromycin 250 mg tablet TAKE 2 TABLETS BY MOUTH TODAY, THEN TAKE 1 TABLET DAILY FOR 4 DAYS 05/23/2023 completed chlorhexidine gluconate 0.12 % mouthwash RINSE WITH 15 ML BY MOUTH TWICE A DAY GENTLY RINSE. SPIT OUT, DO NOT SWALLOW. 05/23/2023 completed hydrocodone 5 mg-acetaminophen 325 mg tablet TAKE 1 TABLET BY MOUTH EVERY SIX HOURS NEEDED FOR PAIN 05/23/2023 completed ibuprofen 800 mg tablet TAKE 1 TABLET BY MOUTH THREE TIMES A DAY FOR SWELLING 05/23/2023 completed oxycodone-acetaminop hen 5 mg-325 mg tablet TAKE 1 TABLET BY MOUTH EVERY 6 HOURS NEEDED FOR PAIN 05/23/2023 completed pimecrolimus 1 % topical cream APPLY TO AFFECTED AREA EVERY DAY NEEDED ONLY 05/23/2023 completed pravastatin 20 mg tablet 05/23/2023 completed solifenacin 5 mg tablet TAKE 1 TABLET BY MOUTH EVERYDAY AT BEDTIME 05/23/2023 completed triamcinolone acetonide 0.025 % topical ointment 05/23/2023 complete d triazolam 0.125 mg tablet TAKE 2 TABLET BY MOUTH DIRECTED 90 MINUTES PRIOR TO PROCEDURE 05/23/2023 completed Zyrtec 10 mg capsule 05/23/2023 completed triazolam 0.125 mg tablet TAKE 2 TABLET BY MOUTH DIRECTED 90 MINUTES PRIOR TO PROCEDURE 09/02/2022 completed cefuroxime axetil 500 mg tablet TAKE 1 TABLET BY MOUTH TWICE A DAY 02/06/2022 completed ondansetron 4 mg disintegrating tablet TAKE 1 TAB BY MOUTH EVERY 8 -12 HOURS NEEDED FOR NAUSEA AND VOMITING 02/06/2022 completed oxybutynin chloride ER 5 mg tablet,extended release 24 hr TAKE 1 TABLET BY MOUTH EVERY 8 HOURS NEEDED FOR BLADDER SPASMS 02/06/2022 completed solifenacin 5 mg tablet TAKE 1 TABLET BY MOUTH EVERYDAY AT BEDTIME 02/06/2022 completed tamsulosin 0.4 mg capsule TAKE 1 CAPSULE BY MOUTH AT BEDTIME FOR 7 DAYS FOR KIDNEY STONE 02/06/2022 completed butalbital-acetamino phen-caffeine 50 mg-325 mg-40 mg tablet TAKE 1 TABLET BY MOUTH EVERY 6 HOURS NEEDED FOR PAIN 09/10/2021 completed pravastatin 40 mg tablet 09/10/2021 completed omeprazole 20 mg tablet,delayed release 07/12/2020 completed oseltamivir 75 mg capsule 07/12/2020 completed polymyxin B sulfate 10,000 unit-trimethoprim 1 mg/mL eye drops 07/12/2020 completed Prilosec 07/12/2020 completed metronidazole 0.75 % topical gel 05/05/2019 completed Baby Aspirin 81 mg chewable tablet 03/04/2014 completed CoQ-10 30 mg capsule 03/04/2014 completed Vitamin D3 10 mcg (400 unit) capsule 03/04/2014 comple juliet butalbital-aceta minophen-caffein e 50 mg-300 mg-40 mg capsule active butalbital-acetamino phen-caffeine 50 mg-300 mg-40 mg capsule TAKE 1 CAPSULE BY MOUTH EVERY DAY NEEDED active Crestor 5 mg tablet acti ve ezetimibe 10 mg tablet TAKE 1 TABLET BY MOUTH EVERY DAY active fluoxetine 20 mg capsule TAKE 1 CAPSULE BY MOUTH EVERY DAY active potassium citrate ER 10 mEq (1,080 mg) tablet,extended release TAKE 1 TABLET ORALLY 2 TIMES A DAY FOR 90 DAYS active potassium citrate ER 10 mEq (1,080 mg) tablet,extended release TAKE 1 TABLET ORALLY 2 TIMES A DAY FOR 90 DAYS active pravastatin 80 mg tablet TAKE 1 TABLET BY MOUTH EVERY DAY active pyridoxine (vitamin B6) 50 mg tablet TAKE 1 TABLET BY MOUTH EVERY DAY active pyridoxine (vitamin B6) 50 mg tablet TAKE 1 TABLET BY MOUTH EVERY DAY active solifenacin 10 mg tablet TAKE 1 TABLET BY MOUTH EVERY DAY active Allergies Allergen Reaction Severity Comment Documented Date Source Statu s NO KNOWN ALLERGY (SITUATION) 03/04/2014 [facility] active Problems Problem Status Onset Date Problem Type Date of Resolution Source Epidermoid cyst of skin active ProblemAct [facility] Hypercholesterolemia active ProblemAct [facility] Irritability of urinary bladder active 2015-03-22 ProblemAct [facility] History of depression active ProblemAct [facility] Sleep apnea active 2018-04-30 ProblemAct [facility] H Migraine active ProblemAct [facility] History of calculus of kidney active 2022-09-02 ProblemAct [facility] Eczema active 2022-02-06 ProblemAct [facility] Hyperlipidemia active 2022-02-06 ProblemAct [facility] Migraine active 2022-02-06 ProblemAct [facility] Obstructive sleep apnea syndrome active 2022-02-06 ProblemAct [facility] Major depressive disorder active 2022-02-06 ProblemAct [facility] Immunizations Vaccine Date Source Lot Number Status Flucelvax Quad (PF ) 60 mcg (15 mcg x 4)/0.5 mL IM syringe 09/03/2023 [facility] [id number] compl eted Spikevax [id number](12y up)(P F) 50 mcg/0.5 mL intramuscular suspension 09/03/2023 [facility] [id number] completed Flucelvax Quad (PF ) 60 mcg (15 mcg x 4)/0.5 mL IM syringe 09/03/2022 [facility] [id number] compl eted Prevnar 20 (PF) 0.5 mL intra muscular syringe 09/03/2022 [facility] [id number] completed Encounters Encounter Type Encounter Reason Primary Diagnosis Location Date Ambulatory [facility]cntr 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 portfolio strategist 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) (routine) w/o abn findings Encntr for portfolio strategist 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) (routine) w/o abn findings [facility] 12/02/2024 Ambulatory [facility] 024 Ambulatory [facility] 023 Ambulatory [facility] 05/23/2023 Ambulatory [facility] 023 Ambulatory [facility] 023 Ambulatory [facility] 022 Ambulatory [facility] 022 Ambulatory [facility] 022 Ambulatory [facility] 022 Ambulatory [facility] 09/10/2021 Care Team Organization Name Specialty Phone Email Start Date End [facility] 09/24/2024 [facility] 01/22/2025 [facility] 09/13/2021 [facility] 09/10/2021 09/10/2021 [facility]
--- OUTSIDE RECORDS SUMMARY | 2025-03-01 18:33 | XMS_ITS | Clinical Summary ---
[facility] [address] [place] [address] Care Team Providers Care Sports Analyst Name Role Phone Som Martinez MD Primary Care Provider Allergies No known active allergies Medications Medication Sig Dispensed Refills Start Date End Date Status butalbital-acetaminoph en-caffeine (FIORICET, ESGIC) 50-325-40 MG per tablet Take 1 tablet by mouth every 4 (four) hours as needed for pain. 0 Active cetirizine (ZYRTEC) 5 MG tablet Take 1 tablet (5 mg total) by mouth daily. 0 Active solifenacin (VESICARE) 5 MG tablet Take 2 tablets (10 mg total) by mouth daily. 0 Active FLUoxetine (PROZAC) 10 MG capsule Take 1 capsule (10 mg total) by mouth daily. 0 Active omeprazole (PRILOSEC) 20 MG capsule Take 1 capsule (20 mg total) by mouth daily. 0 Active pravastatin (PRAVACHOL) tablet 20 mg Take 1 tablet (20 mg total) by mouth daily. 11 11/27/2018 Active ezetimibe (ZETIA) tablet 10 mg Take 1 tablet (10 mg total) by mouth daily. 0 11/16/2022 Active POTASSIUM CITRATE PO Take by mouth. 0 Active Active Problems Problem Noted Date Diagnosed Date Mixed hyperlipidemia 12/13/2023 Shortness of breath 05/05/2019 Other chest pain 05/05/2019 CATRINA (obstructive sleep apnea) 01/26/2018 Depression 01/26/2018 Immunizations Name Administration Dates Next Due Covid-19 (Moderna 12+) 100mcg/0.5mL dosage 01/17 Family History Medical History Relation Name Comments Stroke Father Heart failure Maternal Grandfather Seizures Maternal Grandmother Hydrocephalus Sister 2 Relation Name Status Comments Father Maternal Grandfather Maternal Grandmother Mother Alive Paternal Grandfather Paternal Grandmother Sister 1 Alive Sister 2 Alive Social History Tobacco Use Types Packs/Day Years Used Date Smoking Tobacco: Never Smokeless Tobacco: Never Alcohol Use Standard Drinks/Week Comments Yes 0 (1 standard drink = 0.6 oz pur e alcohol) Sex and Gender Information Value Date Recorded Sex Assigned at Not on file Gender Identity Not on file Sexual Orientation Not on file Job Start Date Occupation Industry Not on file Not on file Not on file Last Filed Vital Signs Vital Sign Reading Time Taken Comments Blood Pressure 124/70 12/11/2023 3:53 PM EST Pulse 83 09/01/2024 3:35 PM EDT Temperature 36.4 ??C (97.6 ??F) 06/26/2020 1:59 PM ED T Respiratory Rate 16 09/01/2024 3:35 PM EDT Oxygen Saturation 98% 09/01/2024 3:35 PM EDT Inhaled Oxygen Concentration - - Weight 74.8 kg (165 lb) 09/01/2024 3:35 PM EDT Height 160 cm (5' 3 ) 09/01/2024 3:35 PM EDT Body Mass Index 29.23 09/01/2024 3:35 PM EDT Plan of Treatment Health Maintenance Due Date Last Done Comments Hepatitis C Screening 1955 Depression Screening 1965 Preventative Health Evaluation 1971 DTap / Tdap / Td (1 - Tdap) 1972 Colon Cancer Screening (Colonoscopy) 1998 Breast Cancer Screening (Mammogram) 2003 Shingrix-Zoster Vaccine (1 o f 2) 2003 Fall Risk Assessment 2018 Osteoporosis Screening (DEXA Scan) 2018 COVID-19 Vaccine (3 - 2023-2 5 season) 2024 09/03/2023, 01/17/2021 Influenza Vaccine (#1) 2024 , 09/03/2022 RSV Adult > 60+ Yrs or (1 - 1-dose 75+ series) 2028 Pneumococcal Vaccine Completed 09/03/2022 Hepatitis B Vaccines Aged Out No long er eligible based on patient's age to complete this topic RSV Ped < 20 months Aged Out No longe r eligible based on patient's age to complete this topic Care Teams Sports Analyst Relationship Specialty Start Date End Date Som Martinez MD [address] [place] [id number] PCP - General Internal Medicine 07/13/19
== END 2025-03-01 15:46 | disposition home or self-care (01) ==
LOC: HO.US 15:45
PROVIDERS: PCP Internal Medicine; Visit Provider Urology
DX: N20.0 Calculus of kidney (principal)
CPT/HCPCS: 76775

== ENCOUNTER → 2025-03-01 15:47 | Outpatient (BNV) | payer BC, SELFPAY | PROVIDERS: PCP Internal Medicine; Visit Provider Radiology Diagnostic Radiology | DX: N28.1 Cyst of kidney, acquired (principal) | CPT/HCPCS: 76775 ==

== ENCOUNTER 2025-04-01 13:11 | Outpatient (AMB) | payer BC, SELFPAY ==
--- NOTE | 2025-04-01 13:11 | MHC.OFFVIS ---
Intake Visit Reasons: 1YR US Intake Note: Patient is Present for Telephone Follow Up For 1Y/US Urology Med: Vitamin B6,POTASSIUM Antibiotic Allergy:None Blood Thinner: None Singer Songwriter Required: No Allergies No Known Allergies Allergy (Verified 04/01/25 13:12) HPI Comments Details: Yamilka is a pleasant female. She is a patient of Dr. Martinez. She seen for the following urologic conditions - uric acid nephrolithiasis Telemedicine Evaluation 15 min Consultation DoxSomo Hanane Video Stones resolved on potassium citrate Continue potassium citrate to 10 mEq b.i.d. May stop vitamin-C Continue surveillance 12 months Nephrolithiasis Uric acid stone former Intervention - 01/29 right ureteroscopy with laser lithotripsy Imaging - 01/29 CT scan 7 mm distal right ureteric stone, 6 mm left stone - 05/01 renal MRI right 1 cm simple cyst, left extrarenal pelvis - no evidence of stones - 01/31 renal US no stones - 03/04 renal ultrasound no stone seen Stone composition - 01/29 80% uric acid with 20% calcium oxalate Therapeutic plan - continue potassium citrate therapy and surveillance imaging [facility] Medical History GERD (gastroesophageal reflux disease) Renal calculi Surgical History No pertinent past surgical history Family History Father No problems noted. Mother No problems noted. Other No family history of coronary artery disease Social History Household Members: Spouse Housing: House Do you presently have visiting nurse or other home services: No Alcohol intake: never Patient Tobacco Use Status: Never used Tobacco service: No Current occupational status: employed Review of Systems Const All systems reviewed & are unremarkable except as noted in HPI and below Reports no additional complaints Resp Reports no additional complaints GI Reports no additional complaints Reports as per HPI Musc Reports no additional complaints Physical Exam Telemedicine evaluation Appropriate responses Regular breathing rate and rhythm HEENT Head: Yes normal to inspection Ears: hearing grossly normal bilaterally Eyes General: appearance normal, both eyes and all related structures Neck Neck: Yes normal visual inspection Chest Chest palpation & inspection: normal inspection of the chest Resp Effort & Inspection: normal respiratory effort and able to speak in complete sentences Telehealth Telehealth Telehealth Platform: [employer] Location of provider rendering services: practice address Location of patient: address on file Patient Identification confirmed using: Name, : Yes Telehealth method: video Patient verbally consented to treatment: Yes Patient verbally consented to billing insurance company: Yes Patient informed of any privacy concerns related to visit: Yes Minutes spent on Phone/Video with Pt.: 15 Assessment & Plan Assessment & Plan (1) Uric acid kidney stone: Code(s): N20.0 - Calculus of kidney Category: Medical (2) Overactive bladder: Code(s): N32.81 - Overactive bladder Category: Medical Plan Refilled medications Twelve month follow-up renal ultrasound Orders: Orders US renal BI 12 Months N32.81 - Overactive bladder Medications: Refilled potassium citrate ER 10 mEq PO BID 90 days 180 tabs 3RF N20.0 - Calculus of kidney solifenacin 10 mg PO DAILY 90 tabs 3RF N32.81 - Overactive bladder Patient Instructions: This note is constructed using voice recognition software. While every effort has been made to ensure accuracy crime scene evidence technician errors may have been included. Imaging studies, laboratory and physical exam results were discussed and reviewed in detail. No major barriers to patient understanding were identified. An opportunity to ask questions regarding the treatment plan was provided. All questions were answered. The patient expressed understanding and agreement with the above treatment plan. The patient is aware they should contact our office by phone for worsening of their current condition or the appearance of new urologic symptoms. Compliance is encouraged with any medications and followup testing that is ordered. It is a privilege to participate in the urologic care of your patient. If you have any questions or concerns regarding treatment for the above conditions, or other urologic issues, please do not hesitate to contact me. The office telephone contact is [phone]. Sincerely, Dr Marlon Maya MD, [facility] - Urology Compassionate Specialist Care for the Genitourinary System Coding Level of Care Code Tele Est Pt Level 4 (15217) Complex EM visit Add On G2211 Diagnoses Uric acid kidney stone N20.0 Overactive bladder N32.81
--- OUTSIDE RECORDS SUMMARY | 2025-04-01 13:14 | XMS_ITS | Encounter Summary ---
[facility] [address] [place] [address] Care Team Providers Care Fan Balancer Name Role Phone Som Martinez MD Primary Care Provider [phone] Encounter Details Date Type Department Care Team (Late st Contact Info) Description 09/01/2024 3:33 PM EDT Hospital Encounter TH HISTORIC ENCOUNTERS EASTERN CONVERSION ONLY Ivonne Thompson MD [address] [place] [address] Social History Tobacco Use Types Packs/Day Years [...] CPAP with a nasal mask Score on [place] Sleepiness Scale is 7/24 No reported mask [...] , BUN , CREATININE , CL , [id number] , GLUCRANDOM , WBC , HEMATOCRIT , [...] prn Ivonne Thompson MD,MRCP,FCCP Pulmonary/Critical Care/Sleep Medicine [phone] documented in this encounter Plan of Treatment Not on file documented as of this encounter Visit Diagnoses Not on filedocumented in this encounter Care Teams Fan Balancer Relationship Specialty Start Date End Date Som Martinez MD [address] PCP - General Internal Medicine 07/13/19 documented as of this encounter
== END 2025-04-01 13:36 | disposition home or self-care (01) ==
LOC: HO.HUSH 13:11
PROVIDERS: PCP Internal Medicine; Visit Provider Urology
DX: N20.0 Calculus of kidney (principal); N32.81 Overactive bladder
CPT/HCPCS: 99214

== ENCOUNTER 2025-07-06 14:47 | Outpatient (REF) | payer MEDICARE, OTHER, SELFPAY ==
--- OUTSIDE RECORDS SUMMARY | 2024-09-01 15:33 | XMS_ITS | Encounter Summary ---
Author Organization [facility] Address [address] [place] [address] Care Team Providers Care Credit Or Loans Officer Name Role Phone Som Martinez MD Primary Care Provider [phone] Encounter Details Date Type Department Care Team (Late st Contact Info) Description 09/01/2024 3:33 PM EDT Hospital Encounter TH HISTORIC ENCOUNTERS EASTERN CONVERSION ONLY Ivonne Thompson MD [address] [place] [address] Social History Tobacco Use Types Packs/Day Years Used Date Smoking Tobacco: Never Smokeless Tobacco: Never Alcohol Use Standard Drinks/Week Comments Yes 0 (1 standard drink = 0.6 oz pur e alcohol) Comments Unknown Sex and Gender Information Value Date Recorded Sex Assigned at Not on file Legal Sex Female 11:37 AM EST Gender Identity Not on file Sexual Orientation Not on file documented as of this encounter Last Filed Vital Signs Vital Sign Reading Time Taken Comments Blood Pressure - - Pulse - - Temperature - - Respiratory Rate - - Oxygen Saturation - - Inhaled Oxygen Concentration - - Weight 74.8 kg (165 lb) 09/01/2024 3:35 PM EDT Height 160 cm (5' 3 ) 09/01/2024 3:35 PM EDT Body Mass Index 29.23 09/01/2024 3:35 PM EDT documented in this encounter Progress Notes * Ivonne Thompson MD - 09/01/2024 3:40 PM EDT PULMONARY PROGRESS NOTE The patient is here in 6 month sleep follow up. No snoring or daytime somnolence Compliant with CPAP with a nasal mask Score on [place] Sleepiness Scale is 7/24 No reported mask leak. Doing well overall Had COVID with mild symptoms Cardiology evaluation noted Vitals: See rooming BP 124/84 Physical Exam: Alert,Oriented, in no distress No edema No clubbing BMI 29.23 No lymphadenopathy Chest: No kyphosis Clear Normal chest excursion CVS: Regular. No murmur or gallop Abdomen is soft and non tender Nasal septal deviation with mild congestion HEENT: Crowded. Mallampati score of 3 Medications: reviewed medication list in the chart Allergies: reviewed allergy section in the chart Review of Systems: Negative for chest pain and shortness of breath Past Medical History: Diagnosis Date ??? Cancer (HCC) Bcca of skin back ??? Dyspnea ??? Frequency of urination ??? GERD (gastroesophageal reflux disease) ??? H/O CT scan of chest Coronary CTA - normal coronary arteries , no pulmonary emboli ??? History of stress test ??? History of stress test 12/2023 Delfin 6:45 min , HR 149, no ST changes, BP 160/50 ??? Migraine headache ??? Sleep apnea, obstructive Labs: No results found for: NA , K , BUN , CREATININE , CL , [id number] , GLUCRANDOM , WBC , HEMATOCRIT , HEMOGLOBIN , PLTCOUNT , MG , PHOS , CALCIUMIONI , CALCIUM , PT , PTTHEPARINPR , INR Imaging: CXR in Oct 2018 reportedly unremarkable Other Studies: Interpretation Summary ?? A stress test was performed following the Delfin protocol. ?? The patient did not develop angina during exercise. Stress/ECG Findings Patient Presentation 63 year old woman with 3 episodes of acute dyspnea with lifting and on occ chest pressure CAD risk factors - HLD Chol 315 No HTn , No DM , non smoker Baseline ECG Baseline ECG indicates a normal ECG. Baseline rhythm is: sinus rhythm. Stress ECG There was no ST segment deviation noted during stress. There were no arrhythmias during stress. There were no arrhythmias during recovery. Stress Findings A stress test was performed following the Delfin protocol, with the patient reachingstage 3. The test was stopped because of dyspnea. Blood pressure demonstrated a hypertensive response to the test. Heart rate demonstrated a normal response to the test. Overall, the patient's exercise capacity was normal to very good. The patient experienced dyspnea during the stress test. The patient experienced no angina during the stress test. The patient's hemodynamic response to exercise was adequate for diagnosis. After treadmill exercise, she was rested for 3 minutes. She then lifted a box weighing approximately 20 lbs from the floor to the exam 20 times. She did not develop her usual symptoms of dyspnea with this lifting exercise .HR 140, BP 168/80 . NO change in O2 sat with exercise or lifting . PFTS are normal / Plan Obstructive sleep Apnea Doing well on CPAP 6-12 with a nasal mask and a S-11 Supplier is [employer] Download from unit shows: AHI is 0.4 / hr Usage is 5-6 hrs a night on average Mask leak not noted Continue current usage The importance of compliance with CPAP/BiPAP therapy was discussed with the patient today. Nightly use of the therapy for 4 or more hours at a minimum is likely to offer long-term benefit to this patient's health and well-being. Conversely, untreated or undertreated sleep disordered breathing may increase the risk of multiple health concerns including but not limited to heart disease, neurological events, motor vehicle accidents and dementia. The patient should avoid sedative, hypnotics, muscle relaxing agents, alcohol beverages, and narcotic analgesics within four hours of sleep. The patient is asked to inform medical and dental caregivers of his diagnosis and ongoing treatment for sleep disordered breathing. The patient is advised that prescribed medications including the delivery of anesthetic/sedation without proper respiratory support may seriously impact respiratory function. The patient is cautionedto never drive or operate machinery while drowsy. A AIR TOUCH N 20 mask provided F/U 4-6 months and prn Ivonne Thompson MD,MRCP,FCCP Pulmonary/Critical Care/Sleep Medicine [phone] documented in this encounter Plan of Treatment Not on file documented as of this encounter Visit Diagnoses Not on filedocumented in this encounter Care Teams Credit Or Loans Officer Relationship Specialty Start Date End Date Som Martinez MD [address] PCP - General Internal Medicine 07/13/19 documented as of this encounter
--- OUTSIDE RECORDS SUMMARY | 2024-12-20 09:15 | XMS_ITS ---
Author Organization [facility] Address [address] [place] [id number] Care Team Providers Care Low Pressure Boiler Tender Name Role Phone NONE, NONE Primary Care Provider Shay Law Jr REASON FOR VISIT Patient presents today for a screening colonoscopy Encounters Encounter Location Date Provider Diagnosis [facility] [address] [place] [phone] 12/20/2024 Shay Frost Jr Plan Of Treatment No Information Progress Notes * JOCY ADAMSB:[birth year] (70 yo F)Acc No.[id number]:12/20/2024 Progress Notes Patient: ROM HUDSON Provider: Sukhi Frost MD :1955 A ge:69 Y S ex:Female Date:12/20/2024 Address:[address] [id number] Subjective: * Chief Complaints: * 1 . Patient presents today for a screening colonoscopy. * Medical History: Objective: * Vitals: Assessment: Plan: * Treatment: * * The named appointment provid er may or may not be the originator of this progress note, and it is not deemed complete until electronically signed by the appointment provider. Sign off status: Pending * Provider: Sukhi Frost MD Date: 0 12/20/2024 Generated for Shawnee coffman/Dimitris/Donald on: 0 07/06/2025 04:10 PM EDT
--- OUTSIDE RECORDS SUMMARY | 2025-07-06 16:10 | XMS_ITS | Patient Health Record ---
Author Organization [facility] Address [address] [place] [phone] Care Team Providers Care Dado Operator Name Role Phone NONE, NONE Primary Care Provider UnavailShay Witt Jr Reason For Referral No Information Encounters Encounter Location Date Provider Diagnosis [facility] [address] [facility] [address] [place] [phone] 12/20/2024 Shay Frost Jr Plan Of Treatment No Information Insurance Providers Payer Name Payer Address Payer Phone Subscriber Number Group Number Insured Name Patient Relationship to Insured Coverage Start Date Coverage End Date [facility] [address] [place], [place] [id number] ALCANTAR Self - patient is the insured
--- OUTSIDE RECORDS SUMMARY | 2025-07-06 16:10 | XMS_ITS | Clinical Summary ---
[facility] Organization [facility] Address [address] [place] [address] Care Team Providers Care Ladies Suit Operator Name Role Phone Som Martinez MD Primary [...] 83 09/01/2024 3:35 PM EDT Temperature 36.4 C (97.6 F) 06/26/2020 1:59 PM EDT Respiratory Rate 16 09/01/2024 3:35 PM EDT [...] Osteoporosis Screening (DEXA Scan) 2018 COVID-19 Vaccine (2023-2 5 season) 2024 09/03/2023, 01/17/2021 Influenza Vaccine (#1) 2025 , 09/03/2022 RSV Adult > 60+ Yrs or (1 - 1-dose 75+ series) 2028 Pneumococcal Vaccine Completed 09/03/2022 Hepatitis B Vaccines Aged Out No long er eligible based on patient's age to complete this topic RSV Ped < 20 months Aged Out No longe r eligible based on patient's age to complete this topic Care Teams Ladies Suit Operator Relationship Specialty Start Date End Date Som Martinez MD [address] [place] [id number] PCP - General Internal Medicine 07/13/19
--- OUTSIDE RECORDS SUMMARY | 2025-07-06 16:10 | XMS_ITS | Clinical Summary ---
Author Organization [facility] [place] [address] Phone Care Team Providers Care Bus Cleaner Name Role Phone Som Martinez MD Primary Care Provider [phone] Surgical History Surgery Date Site/Laterality Comments DILATION AND CURETTAGE OF UTERUS PROCEDURE:DILATION AND CURETTAGE OF UTERUS OTHER SURGICAL HISTORY PROCEDURE:uterine ablation OTHER SURGICAL HISTORY PROCEDURE:GA PELVIC EXAMINATION W/ANESTHESIA OTHER THAN LOCAL OTHER SURGICAL HISTORY PROCEDURE:fractured arm repair MALIGNANT SKIN LESION EXCISION 05/14/2016 N/A PROCEDURE:MALIGNANT SKIN LESION EXCISION;COMMENT:Procedure: EXCISION BCCA OF THE BACK; Surgeon: Jacob Abernathy MD; Location: [facility]; Service: Plastics; Laterality: N/A; Medical History Medical History Date Comments Frequency of urination DX:Freque ncy of urination Migraine headache DX:Migraine he adache Cancer (CMS/HCC V24, CMS/HCC V28) DX:Cancer ([facility]);COMMENT:Bcca of skin back Sleep apnea, obstructive DX:Slee [...] Panel) 10/17/2022 Colorectal Cancer Screening: Colonoscopy 10/17/2022 Falls Risk Assessment 10/17/2022 Hepatitis C Screening 10/17/2022 Osteoporosis Screening (Bone Density Screening) 10/17/2022 Social Influencers of Health Screening 10/17/2022 COVID-19 Vaccine (2 - 2023-2 5 season) 2024 01/17/2021 Depression Screening 11/10/2024 Influenza Vaccine (#1) 2025 RSV Immunization Adult Patie nts (1 [...] complete this topic Insurance MEDICARE Care Teams Bus Cleaner Relationship Specialty Start Date End Date Som Martinez MD [address] PCP - General Internal Medicine 07/13/19
--- OUTSIDE RECORDS SUMMARY | 2025-07-06 16:10 | XMS_ITS | Clinical Summary ---
Author Organization [facility] Address [address] [place] [address] Phone Care Team Providers Care Speech And Hearing Director Name Role Phone Jonah Linares MD Primary Care Provider [phone] Social History Tobacco Use Types Packs/Day Years Used Date Smoking Tobacco: Never Assessed Education Answer Date Recorded Are you interested in more education? Not on olesya e 06/29/2025 Are you concerned about learning? Not on file 06/29/2025 No 06/29/2025 No 06/29/2025 Digital Access Answer Date Recorded No 06/29/2025 No 06/29/2025 Reliable internet access at home? Not on file 06/29/2025 Device with a working camera? Not on file Comments Unknown Sex and Gender Information Value Date Recorded Sex Assigned at Not on file Legal Sex Female 9:58 PM EDT Gender Identity Not on file Sexual Orientation Not on file Plan of Treatment Upcoming Encounters Date Type Department Care Team ([facility] st Contact Info) Description 09/25/2026 9:30 AM EST Office Visit [facility] [address] [place] [address] Dorina Littlejohn, DO [address] [facility], [address] [place] [address] [email or web address] Health Maintenance Due Date Last Done Comments Adult Td,Tdap Booster 1955 LIPID PANEL 1953 DEPRESSION SCREENING 1965 SMOKING Hx and SMOKELESS TOB ACCO SCREENING 1966 HEPATITIS C SCREENING 1971 MAMMOGRAM 1993 COLOGUARD 1998 COLONOSCOPY 1998 COLORECTAL CANCER SCREENING 1998 FIT TEST 1998 FOBT 1998 SIGMOIDOSCOPY 1998 VIRTUAL COLONOSCOPY 1998 PNEUMOCOCCAL VACCINES (50+ y ears) (1 of 1 - PCV) 2003 ZOSTER VACCINES (1 of 2) 2003 OSTEOPOROSIS SCREENING INITI AL (ONE-TIME) 2018 COVID-19 VACCINE (1 - 2023-2 5 season) 2024 RSV VACCINE (1 - 1-dose 75+ series) 2028 HEPATITIS A VACCINES Aged Out No long er eligible based on patient's age to complete this topic HIB VACCINES Aged Out No longer eligi ble based on patient's age to complete this topic MENINGOCOCCAL VACCINES (ACWY) Aged Out No longer eligible based on patient's age to complete this topic MENINGOCOCCAL VACCINES (B) Aged Out N o longer eligible based on patient's age to complete this topic Medical Devices Not on file Insurance MEDICARE PART A & B MEDICARE PART A & B MEDICARE PART A & B MEDICARE PART A & B [place], [place] MEDICARE PART A & [place] [address] [place] [address] [place] [address] [address] [facility] [place] [address] Care Teams Speech And Hearing Director Relationship Specialty Start Date End Date Jonah Linares MD [address] [address] PCP - General Internal Medicine 06/29/25 Additional Source Comments The information contained in this document represents components of the legal health record. It is not the complete legal health record.[facility]
--- OUTSIDE RECORDS SUMMARY | 2025-07-06 16:10 | XMS_ITS ---
Author Name [facility] Organization Unknown History of Medication Use Medication Directions Dispensed Refills Start Date End Date Stat ezetimibe 10 mg tablet Take 1 tablet every day by oral route for 90 days. 06/03/2022 active Prilosec OTC 20 mg tablet,delayed release Take one tablet daily 04/13/2020 05/23/2023 completed pravastatin 20 mg tablet Take 1 tablet (20 mg total) by mouth daily. 11/27/2018 active Fiorinal 50 mg-325 mg-40 mg capsule Take [...] A DAY FOR 5 DAYS 09/13/2024 completed aspirin 81 mg tablet,delayed release Take 81 mg by mouth daily. 1 tablet qod 03/01/2024 completed azithromycin 250 mg tablet TAKE 2 [...] e 50 mg-300 mg-40 mg capsule active amoxicillin 500 mg capsule TAKE 1 CAPSULE BY MOUTH EVERY 8 HOURS UNTIL FINISHED active butalbital-acetamino phen-caffeine 50 mg-300 mg-40 mg capsule TAKE 1 CAPSULE BY MOUTH EVERY DAY NEEDED active butalbital-acetamino phen-caffeine 50 mg-300 mg-40 mg capsule TAKE 1 CAPSULE BY MOUTH EVERY DAY NEEDED active butalbital-acetamino phen-caffeine 50 mg-325 mg-40 mg tablet Take 1 tablet by mouth every 4 (four) hours as needed for pain. active cetirizine 5 mg tablet Take 1 tablet (5 mg total) by mouth daily. active Crestor 5 mg tablet acti ve doxycycline hyclate 100 mg capsule TAKE 1 CAPSULE BY MOUTH TWICE A DAY UNTIL GONE active ezetimibe 10 mg tablet TAKE 1 TABLET BY MOUTH EVERY DAY active ezetimibe 10 mg tablet TAKE 1 TABLET BY MOUTH EVERY DAY active fluoxetine 10 mg capsule Take 1 capsule (10 mg total) by mouth daily. active fluoxetine 20 mg capsule TAKE 1 CAPSULE BY MOUTH EVERY DAY active fluoxetine 20 mg capsule TAKE 1 CAPSULE BY MOUTH EVERY DAY active omeprazole 20 mg capsule,delayed release Take 1 capsule (20 mg total) by mouth daily. active Paxlovid 300 mg (150 mg x 2)-100 mg tablets in a dose pack TAKE 3 TABLETS BY MOUTH TWICE A DAY FOR 5 DAYS active potassium citrate ER 10 mEq [...] 1 TABLET BY MOUTH EVERY DAY active pravastatin 80 mg tablet TAKE 1 [...] TABLET BY MOUTH EVERY DAY active solifenacin 5 mg tablet Take 2 tablets (10 mg total) by mouth daily. active Allergies Allergen Reaction Severity Comment Documented Date Source Statu s NO KNOWN ALLERGY (SITUATION) 03/04/2014 [facility] active Problems Problem Status Onset Date Problem Type Date of Resolution Source Hyperlipidemia active 2022-02-06 ProblemAct E[facility] _[facility] Major depressive disorder active 2022-02-06 ProblemAct [facility] Obstructive sleep apnea syndrome active 2022-02-06 ProblemAct [facility] Eczema active 2022-02-06 ProblemAct [facility] History of calculus of kidney active 2022-09-02 ProblemAct [facility] Migraine active 2022-02-06 ProblemAct [facility] Chest pain active 2019-05-05 ProblemAct [facility] Depressive disorder active 2018-01-26 ProblemAct [facility] Obstructive sleep apnea syndrome active 2018-01-26 ProblemAct [facility] Dyspnea active 2019-05-05 ProblemAct [facility] T Body mass index 30+ - obesity active 2025-03-02 ProblemAct [facility] Mixed hyperlipidemia active 2023-12-13 ProblemAct [facility] Bleeding from nose active 2025-03-02 ProblemAct [facility] Epidermoid cyst of skin active ProblemAct [facility] Hypercholesterolemia active ProblemAct [facility] Irritability of urinary bladder active 2015-03-22 ProblemAct [facility] History of depression active ProblemAct [facility] Sleep apnea active 2018-04-30 ProblemAct [facility] H Migraine active ProblemAct [facility] Immunizations Vaccine Date Source Lot Number Status Comirnaty (12y up)(P F) 30 mcg/0.3 mL intramuscular syringe 09/29/2024 E[facility] [id number] completed Fluad Triv (65y up)(P F) 45 mcg (15 mcg x 3)/0.5 mL IM syringe 09/29/2024 [facility] [id number] ompleted Flucelvax Quad (PF ) 60 mcg (15 mcg x 4)/0.5 mL IM syringe 09/03/2023 [facility] [id number] compl eted Spikevax (12y up)(P F) 50 mcg/0.5 mL intramuscular suspension 09/03/2023 [facility] [id number] completed Flucelvax Quad (PF ) 60 mcg (15 mcg x 4)/0.5 mL IM syringe 09/03/2022 [facility] [id number] compl eted Prevnar 20 (PF) 0.5 mL intra muscular syringe 09/03/2022 E[facility] [id number] completed SARS-COV-2 (COVID-19) vaccin e, mRNA, spike protein, LNP, preservative free, 100 mcg/0.5mL dose 01/17/2021 E[facility] [id number] completed Encounters Encounter Type Encounter Reason Primary Diagnosis Location Date Ambulatory [facility] 025 Ambulatory [facility], 02/09 Ambulatory [facility], 02/09 Ambulatory [facility], 02/09 Ambulatory [facility] for rn immunology 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) (routine) w/o abn findings Encntr for rn immunology 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) (routine) w/o abn findings [facility], [facility] 12/02/2024 Ambulatory [facility], 09/11 Ambulatory [facility] 024 Ambulatory [facility] 09/07/2024 Ambulatory [facility] 023 Ambulatory [facility], [facility] 05[facility]23/2023 Ambulatory [facility] 023 Ambulatory [facility] 023 Ambulatory [facility] 022 Ambulatory [facility] 022 Ambulatory [facility] 022 Ambulatory [facility] 022 Ambulatory [facility], [facility] 09/10/2021 Care Team Organization Name Specialty Phone Email Start Date End Da te [facility] Primary Care 02/2025 [facility] 03/06/2025 [facility], 03/02/2025 05/30/2025 [facility] ([facility]) 09/24/2024 [facility] 08/19/2024 [facility] Primary Care 02/11/2023 [facility] Primary Care 09/17/2022 06/28/2024 [facility] Primary Care [facility], [facility] 09/13/2021 [facility], [facility] 09/10/2021 09/10/2021 [facility]
--- OUTSIDE RECORDS SUMMARY | 2025-07-06 16:10 | XMS_ITS | Clinical Summary ---
Author Organization [facility] Address [address] [place] [address] Care Team Providers Care Substation Mechanic Name Role Phone Unavailable Primary Care Provider Unavailabl e Social History Tobacco Use Types Packs/Day Years [...]
== END 2025-07-06 14:48 | disposition home or self-care (01) ==
LOC: HO.MAMMO 14:47
PROVIDERS: PCP Internal Medicine; Visit Provider Family Medicine
DX: Z12.31 Encounter for screening mammogram for malignant neoplasm of breast (principal)
CPT/HCPCS: 77063; 77067

== ENCOUNTER → 2025-07-06 15:00 | Outpatient (BNV) | payer MEDICARE, OTHER, SELFPAY | PROVIDERS: PCP Internal Medicine; Visit Provider Radiology Body Imaging | DX: Z12.31 Encounter for screening mammogram for malignant neoplasm of breast (principal) | CPT/HCPCS: 77063; 77067 ==